=== PATIENT | female | born 1960 | race American Indian/Alaskan Native ===

== ENCOUNTER 2018-01-13 14:19 | Inpatient (IN) | payer MEDICAID ==
[~2018-01-13 14:19] MED LIST: Azithromycin 500 MG in Sodium Chloride 0.9% 250 ML IVPB SCH
[2018-01-13 14:55] VITALS: BMI 22.8
[2018-01-13] MEDS ORDERED: Sodium Chloride 0.9% 1,000 ML IV STA (15:26)
--- NOTE | 2018-01-13 15:55 | C.PDOC ---
History Of Present Illness 57 year old female, whose PMHx includes COPD/Asthma and HIV (states she is compliant with HAART and does not know last CD4 or viral load), presents to the ED for evaluation of subjective fever, generalized body aches and cough which began around 2 weeks ago. Patient denies chest pain, rash, recent travel or sick contacts. PMD: Dr. Fabien Arthur Time Seen by Provider: 01/13/18 14:58 Chief Complaint (Nursing): Fever History Per: Patient History/Exam Limitations: no limitations Onset/Duration Of Symptoms: Other (2 weeks ) Current Symptoms Are (Timing): Still Present Sick Contacts (Context): None Associated Symptoms: Fever, Cough Recent travel outside of the [place]: No Additional History Per: Patient Past Medical History Reviewed: Historical Data, Nursing Documentation, Vital Signs Vital Signs: Last Vital Signs Temp 99 F 01/13/18 14:55 Pulse 66 01/13/18 14:55 Resp 20 01/13/18 14:55 BP 152/87 H 01/13/18 14:55 Pulse Ox 99 01/13/18 14:55 - Medical History PMH: Asthma, COPD, Depression, HIV Surgical History: No Surg Hx Family History: States: Unknown Family Hx - Social History Hx Alcohol Use: Yes (socially) Hx Substance Use: (previous use of heroine) - Immunization History Hx Tetanus Toxoid Vaccination: No Hx Influenza Vaccination: No Hx Pneumococcal Vaccination: No Review Of Systems Constitutional: Positive for: Fever Cardiovascular: Negative for: Chest Pain Respiratory: Positive for: Cough Musculoskeletal: Positive for: Other (generalized body aches ) Skin: Negative for: Rash Physical Exam - Physical Exam Additional Physical Exam Comments: Constitutional: No acute distress. Head: Normocephalic. Atraumatic. Eyes: PERRL. ENT: Moist mucous membranes. Neck: Supple. Cardiovascular: Regular rate. Radial pulse 2+ bilaterally. Chest: No tenderness. Respiratory: Wheezing bilaterally. GI: Soft. Nontender. Back: No CVA tenderness. Musculoskeletal: No tenderness or swelling of extremities. Skin: No rash. Neurologic: Alert, no focal deficit. ED Course And Treatment - Laboratory Results Result Diagrams: 01/13/18 15:30 01/13/18 15:30 O2 Sat by Pulse Oximetry: 99 (on RA) Pulse Ox Interpretation: Normal - Other Rad CXR X-Ray: Interpreted by Me, Viewed By Me, Read By Radiologist Interpretation: Date of service: 01/13/2018. HISTORY: cough. COMPARISON: 03/12/2016. TECHNIQUE: Chest PA and lateral. FINDINGS: LUNGS: Bilateral hyperaeration consistent with background COPD/emphysema. Prior lateral right basal atelectasis re-expanded. No interval pathology appreciated. PLEURA: No significant pleural effusion identified. No pneumothorax apparent. CARDIOVASCULAR: No aortic atherosclerotic calcification present. Normal heart size. No pulmonary venous congestion suggested. OSSEOUS STRUCTURES: No significant abnormalities. VISUALIZED UPPER ABDOMEN: Normal. OTHER FINDINGS: None. IMPRESSION: No active disease. Bilateral hyperaeration consistent with background COPD/emphysema. Medical Decision Making Medical Decision Making: Impression: 57 year old female with subjective fever, body aches, and cough Plan: * bloodwork * urinalysis * CXR * EKG * Flu swab * Toradol IVP * IV Fluids * reassess and disposition Progress: Bloodwork, urinalysis, CXR, EKG, Flu swab ordered and reviewed. Toradol IVP and IV Fluids given. Patient continues to feel short of breath after treatment. Dr. Arthur accepts patient for observation to his service. Cipro initiated for UTI. Disposition Discussed With : Fabien Arthur Doctor Will See Patient In The: Hospital - Disposition Disposition: HOSPITALIZED Disposition Time: 17:15 Condition: FAIR Forms: [facility] (Nepali) - Clinical Impression Clinical Impression: Influenza-like illness, COPD exacerbation, UTI (urinary tract infection) - Scribe Statement The provider has reviewed the documentation as recorded by the Scribe (Conchis Puckett) Provider Attestation: All medical record entries made by the Scribe were at my direction and personally dictated by me. I have reviewed the chart and agree that the record accurately reflects my personal performance of the history, physical exam, medical decision making, and the department course for this patient. I have also personally directed, reviewed, and agree with the discharge instructions and disposition.
[2018-01-13 15:57] LABS: BASO % 0.5 % (0.0-2.0); EOS % 0.5 % (0.0-4.0); HEMOGLOBIN 12.8 g/dL (11.0-16.0); LYMPH # 2.5 K/uL (1.0-4.3); LYMPH % 31.5 % (20.0-40.0); MEAN CELL VOLUME 94.9 fL (81.0-99.0); MEAN CORPUSCULAR HEMOGLOBIN 32.6 pg (27.0-31.0); MEAN CORPUSCULAR HGB CONC 34.3 g/dL (33.0-37.0); MONO # 0.8 K/uL (0.0-0.8); MONO % 9.9 % (0.0-10.0); NEUT # 4.6 K/uL (1.8-7.0); NEUT % 57.6 % (50.0-75.0); NRBC % 0.1 % (0.0-2.0); RBC 3.92 Mil/uL (3.80-5.20); RED CELL DISTRIBUTION WIDTH 13.8 % (11.5-14.5)
[2018-01-13] MEDS ORDERED: Sodium Chloride 0.9% 1,000 ML ONE (15:58)
[2018-01-13 16:04] LABS: SQUAMOUS EPITHIAL 7 /hpf (0-5); URINE BILIRUBIN NEGATIVE (NEGATIVE); URINE BLOOD NEGATIVE (NEGATIVE); URINE CLARITY Hazy (Clear); URINE COLOR Yellow (YELLOW); URINE GLUCOSE (UA) NORMAL (Normal); URINE LEUKOCYTE ESTERASE 3+ Leu/uL (Negative); URINE PROTEIN NEGATIVE (NEGATIVE); URINE UROBILINOGEN NORMAL mg/dL (0.2-1.0)
[2018-01-13 16:05] LABS: HCG,QUALITATIVE URINE NEGATIVE (NEGATIVE)
[2018-01-13 16:17] LABS: ALB/GLOB RATIO 1.3 (1.0-2.1); AST/SGOT 42 U/L (14-36); BLOOD UREA NITROGEN 8 mg/dL (7-17); GFR NON-AFRICAN AMERICAN > 60; LIPASE 58 U/L (23-300)
[2018-01-13 16:19] LABS: ALT/SGPT 36 U/L (9-52)
--- NOTE | 2018-01-13 17:02 | RAD ---
Date of service: 01/13/2018 HISTORY: cough COMPARISON: 03/12/2016 TECHNIQUE: Chest PA and lateral FINDINGS: LUNGS: Bilateral hyperaeration consistent with background COPD/emphysema. Prior lateral right basal atelectasis re-expanded. No interval pathology appreciated. PLEURA: No significant pleural effusion identified. No pneumothorax apparent. CARDIOVASCULAR: No aortic atherosclerotic calcification present Normal heart size. No pulmonary venous congestion suggested OSSEOUS STRUCTURES: No significant abnormalities. VISUALIZED UPPER ABDOMEN: Normal. OTHER FINDINGS: None. IMPRESSION: No active disease. Bilateral hyperaeration consistent with background COPD/emphysema.
[2018-01-13] MEDS ORDERED: MethylPREDNISolone 40 mg Vial IVP STA (17:17)
[2018-01-13] MEDS ORDERED: Albuterol-Ipratrop 3 mg / 0.5 (3 ml) UD IH STA (17:17)
[2018-01-13] MEDS ORDERED: Ciprofloxacin 400mg/200ml D5W 400 MG/200 ML BAG IVPB STA (17:18)
[2018-01-13] MEDS ORDERED: Albuterol-Ipratrop 3 mg / 0.5 (3 ml) UD ONE (17:54)
[2018-01-13] MEDS ORDERED: Ciprofloxacin 400mg/200ml D5W 400 MG/200 ML BAG IVPB ONE (17:54)
[2018-01-13] MEDS: Albuterol-Ipratrop 3 mg / 0.5 (3 ml) UD INH SCH (20:00)
[2018-01-13] MEDS: Azithromycin 500 MG in Sodium Chloride 0.9% 250 ML IVPB SCH (20:19)
[2018-01-13] MEDS: Dextrose 5%/0.45% NS 1,000 ML IV SCH (20:19)
[2018-01-13] MEDS: guaiFENesin 200 mg/10 ml Syrup UD PO PRN (21:40)
[2018-01-13] MEDS: Prazosin HCL 2 mg PO SCH (21:41)
--- NOTE | 2018-01-13 22:57 | CP.PCM.HP ---
Present on Admission - Present on Admission Any Indicators Present on Admission: No Past Patient History - Infectious Disease Hx of Infectious Diseases: None - Past Medical History & Family History Past Medical History?: Yes - Past Social History Smoking Status: Light Smoker < 10 Cigarettes Daily - CARDIAC Hx Cardiac Disorders: No - PULMONARY Hx Asthma: Yes Hx Chronic Obstructive Pulmonary Disease (COPD): Yes - NEUROLOGICAL Other/Comment: "Hole in the head" - HEENT Other/Comment: Left eye blind - HEMATOLOGICAL/ONCOLOGICAL Hx Human Immunodeficiency Virus (HIV): Yes - MUSCULOSKELETAL/RHEUMATOLOGICAL Hx Falls: No - PSYCHIATRIC Hx Depression: Yes Hx Substance Use: (previous use of heroine) - SURGICAL HISTORY Hx Surgeries: No - ANESTHESIA Hx Anesthesia: No Meds Home Medications: Home Medication List Medication Instructions Recorded Confirmed Type Albuterol HFA [Ventolin HFA 90 0.09 mg IH QID PRN #1 puff 01/19/18 Rx mcg/actuation (8 g)] Allergies/Adverse Reactions: Allergies Allergy/AdvReac Type Severity Reaction Status Date / Time No Known Allergies Allergy Verified 02/03/18 19:25 Results - Vital Signs Recent Vital Signs: Last Vital Signs Temp 98 F 01/13/18 19:00 Pulse 66 01/13/18 19:11 Resp 18 01/13/18 19:00 BP 152/80 H 01/13/18 19:00 Pulse Ox 98 01/13/18 19:21 - Labs Result Diagrams: 01/15/18 06:49 01/19/18 06:20 Labs: Laboratory Results - last 24 hr 01/13/18 01/13/18 01/13/18 15:30 15:30 15:30 WBC 8.0 RBC 3.92 Hgb 12.8 Hct 37.2 MCV 94.9 D MCH 32.6 H MCHC 34.3 RDW 13.8 Plt Count 185 MPV 9.0 Neut % (Auto) 57.6 Lymph % (Auto) 31.5 [place] % (Auto) 9.9 Eos % (Auto) 0.5 Baso % (Auto) 0.5 Neut # (Auto) 4.6 Lymph # (Auto) 2.5 [place] # (Auto) 0.8 Eos # (Auto) 0.0 Baso # (Auto) 0.0 Sodium Potassium Chloride Carbon Dioxide Anion Gap BUN Creatinine Est GFR ( Amer) Est GFR (Non-Af Amer) Random Glucose Calcium Total Bilirubin AST ALT Alkaline Phosphatase Total Creatine Kinase Total Protein Albumin Globulin Albumin/Globulin Ratio Lipase Urine Color Yellow Urine Clarity Hazy Urine pH 7.0 Ur Specific [place] 1.012 Urine Protein Negative Urine Glucose (UA) Normal Urine Ketones Negative Urine Blood Negative Urine Nitrate Negative Urine Bilirubin Negative Urine Urobilinogen Normal Ur Leukocyte Esterase 3+ H Urine WBC (Auto) 11 H Urine RBC (Auto) 1 Ur Squamous Epith Cells 7 H Urine HCG, Qual Negative Influenza Typ A,B (EIA) Negative for flu a/b 01/13/18 15:30 WBC RBC Hgb Hct MCV MCH MCHC RDW Plt Count MPV Neut % (Auto) Lymph % (Auto) [place] % (Auto) Eos % (Auto) Baso % (Auto) Neut # (Auto) Lymph # (Auto) [place] # (Auto) Eos # (Auto) Baso # (Auto) Sodium 142 Potassium 4.2 Chloride 104 Carbon Dioxide 31 H Anion Gap 12 BUN 8 Creatinine 0.9 Est GFR ( Amer) > 60 Est GFR (Non-Af Amer) > 60 Random Glucose 79 Calcium 9.0 Total Bilirubin 0.4 AST 42 H ALT 36 Alkaline Phosphatase 90 Total Creatine Kinase 378 H Total Protein 7.2 Albumin 4.0 Globulin 3.1 Albumin/Globulin Ratio 1.3 Lipase 58 Urine Color Urine Clarity Urine pH Ur Specific [place] Urine Protein Urine Glucose (UA) Urine Ketones Urine Blood Urine Nitrate Urine Bilirubin Urine Urobilinogen Ur Leukocyte Esterase Urine WBC (Auto) Urine RBC (Auto) Ur Squamous Epith Cells Urine HCG, Qual Influenza Typ A,B (EIA)
[2018-01-14] MEDS: Albuterol-Ipratrop 3 mg / 0.5 (3 ml) UD INH SCH ×4 (01:30→20:17)
--- NOTE | 2018-01-14 07:00 | HP ---
CHIEF COMPLAINT: The patient has fever, cough x2 days. HISTORY OF PRESENT ILLNESS: This is a 57-year-old female well known to me with history of acquired immunodeficiency syndrome (AIDS), on HAART therapy and she claimed to be compliant to HAART therapy. The patient's CD4 and viral load is unknown. She is on methadone 70 mg daily recently started. In her usual state of health, she is ambulatory and independent in activities of daily living. For the last few days, she has been having cough, congestion, wheezing, chills, rigors, body aches, tiredness, anorexia, malaise, and fatigue. She denies any polyuria, polydipsia, or polyphagia. She denies any history of hematuria, pyuria. She denies any sneezing, itchy eyes, itchy nose. There is no history of trauma, fall, loss of consciousness. She denies any history of seizure-like activity. PAST MEDICAL HISTORY: AIDS, on HAART therapy. SOCIAL HISTORY: She smokes, she drinks and she uses drugs. She is on methadone. CURRENT MEDICATIONS: At home, she is on Seroquel, methadone, Symbicort, Ambien, and Minipress. PHYSICAL EXAMINATION: GENERAL: A middle aged female, in mild distress with weakness. VITAL SIGNS: Blood pressure 152/80, pulse 58, respiratory rate 18, temperature 98, still the patient has extensive changes with postinflammatory hyperpigmentation. HEENT: Atraumatic, normocephalic. Negative pallor. Negative jaundice. Extraocular movements are intact. NECK: Supple. No JVD. No lymph node. No thyromegaly. CHEST: Chest wall bilateral symmetrical expansion. BREASTS: No masses. No nipple discharge. LUNGS: Decreased air entry. Positive rhonchi. CARDIOVASCULAR SYSTEM: PMI in the fifth intercostal space. S1, S2 regular. ABDOMEN: Soft and nontender. Bowel sounds are positive. RECTAL: Normal. GENITAL: Normal. EXTREMITIES: No clubbing, cyanosis, or edema. CENTRAL NERVOUS SYSTEM: Normal. ASSESSMENT: 1. Acute tracheobronchitis. 2. Exacerbation of chronic obstructive pulmonary disease. 3. Acquired immunodeficiency syndrome. 4. Hypertension. PLAN: Antibiotics, monitor the patient. Medication, nebulizer. Fabien Arthur MD [facility] # [id number]
[2018-01-14] MEDS: guaiFENesin 200 mg/10 ml Syrup UD PO PRN (07:56)
[2018-01-14] MEDS: Dextrose 5%/0.45% NS 1,000 ML IV SCH ×3 (07:57→19:18)
[2018-01-14] MEDS: Methadone 40 mg Tab PO SCH (10:11)
[2018-01-14] MEDS: Enoxaparin 40 mg Syringe SC SCH (10:11)
[2018-01-14] MEDS: Azithromycin 500 MG in Sodium Chloride 0.9% 250 ML IVPB SCH (19:13)
--- NOTE | 2018-01-14 19:39 | CARD ---
APPROVED REPORT Date of service: 01/13/2018 EKG Measurement Heart [id number] <Conclusion> Sinus bradycardia Nonspecific T wave abnormality Prolonged QT Abnormal ECG
[2018-01-14] MEDS: Prazosin HCL 2 mg PO SCH (21:33)
--- NOTE | 2018-01-14 21:46 | CP.PCM.PN ---
Subjective - Date & Time of Evaluation Date of Evaluation: 01/14/18 Time of Evaluation: 09:15 Objective - Vital Signs/Intake and Output Vital Signs (last 24 hours): Temp Pulse Resp BP Pulse Ox 98.0 F 65 20 151/80 H 100 01/14/18 15:00 01/14/18 19:13 01/14/18 15:00 01/14/18 19:13 01/14/18 19:46 - Medications Medications: Current Medications Albuterol/Ipratropium (Duoneb 3 Mg/0.5 Mg (3 Ml) Ud) 3 ml INH RQ6 [facility] Last Admin: 01/14/18 20:17 Dose: 3 ml Enoxaparin Sodium (Lovenox) 40 mg SC DAILY [facility] Last Admin: 01/14/18 10:11 Dose: 40 mg Guaifenesin (Robitussin) 200 mg PO Q4H PRN PRN Reason: Cough and congestion Last Admin: 01/14/18 07:56 Dose: 200 mg Dextrose/Sodium Chloride (Dextrose 5%/0.45% Ns 1000 Ml) 1,000 mls @ 80 mls/hr IV .[id number] [facility] Last Admin: 01/14/18 19:18 Dose: Not Given Azithromycin 500 mg/ Sodium (Chloride) 250 mls @ 250 mls/hr IVPB Q24H [facility]; Protocol Last Admin: 01/14/18 19:13 Dose: 250 mls/hr Methadone HCl (Methadose) 40 mg PO DAILY [facility] Last Admin: 01/14/18 10:11 Dose: 40 mg Methadone HCl (Methadone) 30 mg PO DAILY [facility] Last Admin: 01/14/18 10:11 Dose: 30 mg Prazosin HCl (Minipress) 2 mg PO HS [facility] Last Admin: 01/14/18 21:33 Dose: 2 mg Prednisone (Prednisone Tab) 20 mg PO DAILY [facility] Stop: 01/16/18 12:00 Last Admin: 01/14/18 10:11 Dose: 20 mg Quetiapine Fumarate (Seroquel) 100 mg PO HS [facility] Last Admin: 01/14/18 21:33 Dose: 100 mg Zolpidem Tartrate (Ambien) 5 mg PO HS PRN PRN Reason: Insomnia Last Admin: 01/14/18 21:40 Dose: 5 mg - Labs Labs: 01/13/18 15:30 01/13/18 15:30
[2018-01-15] MEDS: Albuterol-Ipratrop 3 mg / 0.5 (3 ml) UD INH SCH ×3 (01:50→13:22)
[2018-01-15] MEDS: Dextrose 5%/0.45% NS 1,000 ML IV SCH ×2 (06:32→09:00)
[2018-01-15 07:20] LABS: BASO % 0.3 % (0.0-2.0); EOS % 0.1 % (0.0-4.0); LYMPH # 2.5 K/uL (1.0-4.3); LYMPH % 25.6 % (20.0-40.0); MEAN CELL VOLUME 95.3 fL (81.0-99.0); MEAN CORPUSCULAR HGB CONC 34.7 g/dL (33.0-37.0); MEAN PLATELET VOLUME 9.4 fL (7.2-11.7); MONO % 10.1 % (0.0-10.0); NEUT # 6.3 K/uL (1.8-7.0); NEUT % 63.9 % (50.0-75.0); RBC 3.63 Mil/uL (3.80-5.20); RED CELL DISTRIBUTION WIDTH 13.9 % (11.5-14.5); WHITE BLOOD COUNT 9.9 K/uL (4.8-10.8)
[2018-01-15 07:27] LABS: ALB/GLOB RATIO 1.1 (1.0-2.1); ALBUMIN 3.2 g/dL (3.5-5.0); ALT/SGPT 25 U/L (9-52); AST/SGOT 31 U/L (14-36); BLOOD UREA NITROGEN 14 mg/dL (7-17); CALCIUM 8.6 mg/dl (8.6-10.4); GFR NON-AFRICAN AMERICAN > 60
--- NOTE | 2018-01-15 08:46 | PN ---
DATE: 01/14/2018 SUBJECTIVE: The patient, Rosa Quevedo, is feeling anxious. She is afebrile. She has decreased nausea, vomiting. She is on methadone. No fever. No chills. PHYSICAL EXAMINATION VITAL SIGNS: Blood pressure 151/80, pulse 65, respiratory rate 20. LUNGS: Positive rhonchi. Decreased air entry. CARDIOVASCULAR SYSTEM: S1, S2 regular. ABDOMEN: Soft, nontender. Bowel sounds are positive. ASSESSMENT: 1. Chronic obstructive pulmonary disease. 2. Tracheobronchitis. 3. Acquired immunodeficiency syndrome. 4. Hypertension. PLAN: Continue current medication. Monitor the patient. Fabien Arthur MD
[2018-01-15] MEDS: Enoxaparin 40 mg Syringe SC SCH (09:26)
[2018-01-15] MEDS: Methadone 40 mg Tab PO SCH (09:27)
[2018-01-15] MEDS: guaiFENesin 200 mg/10 ml Syrup UD PO PRN (12:59)
[2018-01-15] MEDS: Prazosin HCL 2 mg PO SCH (21:30)
--- NOTE | 2018-01-15 21:57 | CP.PCM.PN ---
Subjective - Date & Time of Evaluation Date of Evaluation: 01/15/18 Time of Evaluation: 09:15 - Subjective Subjective: dictated Objective - Vital Signs/Intake and Output Vital Signs (last 24 hours): Temp Pulse Resp BP Pulse Ox 98.2 F 60 20 155/86 H 99 01/15/18 15:00 01/15/18 16:00 01/15/18 15:00 01/15/18 15:00 01/15/18 15:00 - Medications Medications: Current Medications Acetaminophen (Tylenol 325mg Tab) 650 mg PO Q6 PRN PRN Reason: Pain, moderate (4-7) Last Admin: 01/15/18 19:29 Dose: 650 mg Albuterol/Ipratropium (Duoneb 3 Mg/0.5 Mg (3 Ml) Ud) 3 ml INH RQ6 [facility] Last Admin: 01/15/18 13:22 Dose: 3 ml Azithromycin (Zithromax) 500 mg PO 1999 [facility] Last Admin: 01/15/18 19:29 Dose: 500 mg Enoxaparin Sodium (Lovenox) 40 mg SC DAILY [facility] Last Admin: 01/15/18 09:26 Dose: 40 mg Guaifenesin (Robitussin) 200 mg PO Q4H PRN PRN Reason: Cough and congestion Last Admin: 01/15/18 12:59 Dose: 200 mg Dextrose/Sodium Chloride (Dextrose 5%/0.45% Ns 1000 Ml) 1,000 mls @ 80 mls/hr IV .[id number] [facility] Last Admin: 01/15/18 09:00 Dose: Not Given Methadone HCl (Methadose) 40 mg PO DAILY [facility] Last Admin: 01/15/18 09:27 Dose: 40 mg Methadone HCl (Methadone) 30 mg PO DAILY [facility] Last Admin: 01/15/18 09:27 Dose: 30 mg Prazosin HCl (Minipress) 2 mg PO HS [facility] Last Admin: 01/15/18 21:30 Dose: 2 mg Prednisone (Prednisone Tab) 20 mg PO DAILY [facility] Stop: 01/16/18 12:00 Last Admin: 01/15/18 09:26 Dose: 20 mg Quetiapine Fumarate (Seroquel) 100 mg PO HS [facility] Last Admin: 01/15/18 21:30 Dose: 100 mg Zolpidem Tartrate (Ambien) 5 mg PO HS PRN PRN Reason: Insomnia Last Admin: 01/15/18 21:30 Dose: 5 mg - Labs Labs: 01/15/18 06:49 01/15/18 06:49
[2018-01-16] MEDS: Albuterol-Ipratrop 3 mg / 0.5 (3 ml) UD INH SCH ×3 (02:25→07:55)
--- NOTE | 2018-01-16 08:37 | PN ---
DATE: 01/15/2018 SUBJECTIVE: The patient is feeling weak, dizzy, coughing, wheezing, with thick sputum production. No chest pain. She has chest congestion upon coughing. No abdominal pain, nausea, vomiting. PHYSICAL EXAMINATION: VITAL SIGNS: Blood pressure 165/86, pulse 60, respiratory rate 20, temperature 98.2. LUNGS: Diffuse air entry, positive rhonchi. CARDIOVASCULAR SYSTEM: S1, S2, regular. ABDOMEN: Soft. ASSESSMENT: 1. Exacerbation of bronchial asthma. 2. Acquired immunodeficiency syndrome. 3. Opioid dependence, on methadone. 4. Hypertension. PLAN: Continue current medication. Monitor the patient. Fabien Arthur MD
[2018-01-16] MEDS: Methadone 40 mg Tab PO SCH (09:18)
[2018-01-16] MEDS: Enoxaparin 40 mg Syringe SC SCH (09:18)
[2018-01-16] MEDS: Dextrose 5%/0.45% NS 1,000 ML IV SCH (12:44)
[2018-01-16] MEDS: Prazosin HCL 2 mg PO SCH (21:31)
--- NOTE | 2018-01-16 23:24 | CP.PCM.PN ---
Subjective - Subjective Subjective: dicated Objective - Vital Signs/Intake and Output Vital Signs (last 24 hours): Temp Pulse Resp BP Pulse Ox 97.8 F 60 20 163/86 H 98 01/16/18 18:36 01/16/18 16:09 01/16/18 16:09 01/16/18 16:09 01/16/18 16:09 Intake and Output: 01/16/18 01/17/18 18:59 06:59 Intake Total 520 500 Balance 520 500 - Medications Medications: Current Medications Acetaminophen (Tylenol 325mg Tab) 650 mg PO Q6 PRN PRN Reason: Pain, moderate (4-7) Last Admin: 01/16/18 17:36 Dose: 650 mg Albuterol/Ipratropium (Duoneb 3 Mg/0.5 Mg (3 Ml) Ud) 3 ml INH RQ6 [facility] Last Admin: 01/16/18 07:55 Dose: 3 ml Azithromycin (Zithromax) 500 mg PO 2000 [facility] Last Admin: 01/16/18 20:23 Dose: 500 mg Clonidine HCl (Catapres) 0.1 mg PO BID [facility] Last Admin: 01/16/18 17:34 Dose: 0.1 mg Enoxaparin Sodium (Lovenox) 40 mg SC DAILY [facility] Last Admin: 01/16/18 09:18 Dose: 40 mg Guaifenesin (Robitussin) 200 mg PO Q4H PRN PRN Reason: Cough and congestion Last Admin: 01/15/18 12:59 Dose: 200 mg Methadone HCl (Methadose) 40 mg PO DAILY [facility] Last Admin: 01/16/18 09:18 Dose: 40 mg Methadone HCl (Methadone) 30 mg PO DAILY [facility] Last Admin: 01/16/18 09:18 Dose: 30 mg Prazosin HCl (Minipress) 2 mg PO HS [facility] Last Admin: 01/16/18 21:31 Dose: 2 mg Quetiapine Fumarate (Seroquel) 100 mg PO HS [facility] Last Admin: 01/16/18 21:31 Dose: 100 mg Zolpidem Tartrate (Ambien) 5 mg PO HS PRN PRN Reason: Insomnia Last Admin: 01/16/18 21:31 Dose: 5 mg - Labs Labs: 01/15/18 06:49 01/15/18 06:49
[2018-01-17] MEDS: Albuterol-Ipratrop 3 mg / 0.5 (3 ml) UD INH SCH ×4 (01:27→19:52)
[2018-01-17] MEDS: Methadone 40 mg Tab PO SCH (10:08)
[2018-01-17] MEDS: Enoxaparin 40 mg Syringe SC SCH (10:09)
[2018-01-17] MEDS: guaiFENesin 200 mg/10 ml Syrup UD PO SCH ×2 (14:05→20:41)
[2018-01-17] MEDS: Prazosin HCL 2 mg PO SCH (21:42)
--- NOTE | 2018-01-17 21:45 | CP.PCM.PN ---
Subjective - Subjective Subjective: dictated Objective - Vital Signs/Intake and Output Vital Signs (last 24 hours): Temp Pulse Resp BP Pulse Ox 98 F 88 20 156/86 H 97 01/17/18 16:00 01/17/18 16:00 01/17/18 16:00 01/17/18 16:00 01/17/18 16:00 Intake and Output: 01/17/18 01/18/18 18:59 06:59 Intake Total 1140 Balance 1140 - Medications Medications: Current Medications Acetaminophen (Tylenol 325mg Tab) 650 mg PO Q6 PRN PRN Reason: Pain, moderate (4-7) Last Admin: 01/16/18 17:36 Dose: 650 mg Albuterol/Ipratropium (Duoneb 3 Mg/0.5 Mg (3 Ml) Ud) 3 ml INH RQ6 [facility] Last Admin: 01/17/18 19:52 Dose: 3 ml Azithromycin (Zithromax) 500 mg PO 2000 [facility] Last Admin: 01/17/18 20:41 Dose: 500 mg Clonidine HCl (Catapres) 0.1 mg PO BID [facility] Last Admin: 01/17/18 18:15 Dose: 0.1 mg Enoxaparin Sodium (Lovenox) 40 mg SC DAILY [facility] Last Admin: 01/17/18 10:09 Dose: 40 mg Guaifenesin (Robitussin) 200 mg PO Q6H [facility] Stop: 01/19/18 14:02 Last Admin: 01/17/18 20:41 Dose: 200 mg Methadone HCl (Methadose) 40 mg PO DAILY [facility] Last Admin: 01/17/18 10:08 Dose: 40 mg Methadone HCl (Methadone) 30 mg PO DAILY [facility] Last Admin: 01/17/18 10:10 Dose: 30 mg Methylprednisolone (Solu-Medrol) 60 mg IV Q12 [facility] Prazosin HCl (Minipress) 2 mg PO HS [facility] Last Admin: 01/17/18 21:42 Dose: 2 mg Quetiapine Fumarate (Seroquel) 100 mg PO HS [facility] Last Admin: 01/17/18 21:42 Dose: 100 mg Zolpidem Tartrate (Ambien) 5 mg PO HS PRN PRN Reason: Insomnia Last Admin: 01/17/18 21:41 Dose: 5 mg - Labs Labs: 01/15/18 06:49 01/15/18 06:49
[2018-01-18] MEDS: guaiFENesin 200 mg/10 ml Syrup UD PO SCH ×4 (01:00→19:30)
[2018-01-18] MEDS: Albuterol-Ipratrop 3 mg / 0.5 (3 ml) UD INH SCH ×4 (01:00→19:50)
--- NOTE | 2018-01-18 08:21 | PN ---
DATE: 01/17/2018 SUBJECTIVE: The patient, Sae, is still coughing, wheezing; and she is dyspneic. She is on multiple medications. She denies any nausea, vomiting, or diarrhea. PHYSICAL EXAMINATION: VITAL SIGNS: Blood pressure 156/86, pulse 88, respiratory rate 20, temperature 98. LUNGS: Bilateral expiratory and inspiratory rhonchi. CARDIOVASCULAR SYSTEM: S1, S2, regular. ABDOMEN: Soft. ASSESSMENT: 1. Acute tracheal bronchitis. 2. Exacerbation of bronchial asthma. 3. Polydrug abuse, on methadone. 4. Hypertension. PLAN: Add Solu-Medrol 60 IV every 12 hours. Continue current medication. Monitor breathing, PEEP flow, pre and post treatment. Fabien Arthur MD
--- NOTE | 2018-01-18 08:21 | PN ---
DATE: 01/16/2018 SUBJECTIVE: The patient has less cough, less short of breath, less wheezing, no fever. Blood pressure fluctuating. The patient is on methadone. No abdominal pain. No nausea, vomiting. PHYSICAL EXAMINATION: VITAL SIGNS: Blood pressure 163/86, pulse 60, respiratory rate 20, temperature 98.4. LUNGS: Positive rales, rhonchi. CVS: S1, S2 regular. ABDOMEN: Soft. ASSESSMENT: 1. Tracheobronchitis. 2. Exacerbation of chronic obstructive pulmonary disease. 3. Opiate dependence. PLAN: Continue antibiotics and nebulizer treatment. Monitor the patient. Fabien Arthur MD
[2018-01-18] MEDS: Enoxaparin 40 mg Syringe SC SCH (09:30)
[2018-01-18] MEDS: Methadone 40 mg Tab PO SCH (09:31)
[2018-01-18] MEDS: Prazosin HCL 2 mg PO SCH (21:30)
--- NOTE | 2018-01-18 22:22 | CP.PCM.PN ---
Subjective - Subjective Subjective: dictated Objective - Vital Signs/Intake and Output Vital Signs (last 24 hours): Temp Pulse Resp BP Pulse Ox 98.2 F 75 21 141/89 96 01/18/18 20:52 01/18/18 16:00 01/18/18 16:00 01/18/18 16:00 01/18/18 16:00 Intake and Output: 01/18/18 01/19/18 18:59 06:59 Intake Total 500 Balance 500 - Medications Medications: Current Medications Acetaminophen (Tylenol 325mg Tab) 650 mg PO Q6 PRN PRN Reason: Pain, moderate (4-7) Last Admin: 01/18/18 20:52 Dose: 650 mg Azithromycin (Zithromax) 500 mg PO 2000 [facility] Last Admin: 01/18/18 19:31 Dose: 500 mg Clonidine HCl (Catapres) 0.1 mg PO BID [facility] Last Admin: 01/18/18 17:59 Dose: 0.1 mg Enoxaparin Sodium (Lovenox) 40 mg SC DAILY [facility] Last Admin: 01/18/18 09:30 Dose: 40 mg Guaifenesin (Robitussin) 200 mg PO Q6H [facility] Stop: 01/19/18 14:02 Last Admin: 01/18/18 19:30 Dose: 200 mg Methadone HCl (Methadose) 40 mg PO DAILY [facility] Last Admin: 01/18/18 09:31 Dose: 40 mg Methadone HCl (Methadone) 30 mg PO DAILY [facility] Last Admin: 01/18/18 09:31 Dose: 30 mg Methylprednisolone (Solu-Medrol) 60 mg IV Q12 [facility] Last Admin: 01/18/18 21:31 Dose: 60 mg Prazosin HCl (Minipress) 2 mg PO HS [facility] Last Admin: 01/18/18 21:30 Dose: 2 mg Quetiapine Fumarate (Seroquel) 100 mg PO HS [facility] Last Admin: 01/18/18 21:30 Dose: 100 mg Zolpidem Tartrate (Ambien) 5 mg PO HS PRN PRN Reason: Insomnia Last Admin: 01/18/18 21:31 Dose: 5 mg - Labs Labs: 01/15/18 06:49 01/15/18 06:49
[2018-01-19 00:41] VITALS: RESP 20
[2018-01-19] MEDS: guaiFENesin 200 mg/10 ml Syrup UD PO SCH ×3 (01:44→13:45)
--- NOTE | 2018-01-19 03:02 | PN ---
DATE: 01/18/2018 SUBJECTIVE: The patient, Rosa, is feeling better. She is less cough, less wheezing. She feels better. PHYSICAL EXAMINATION: VITAL SIGNS: Blood pressure 141/89, pulse 75, respiratory rate 21, and temperature 98.2. LUNGS: Decreased air entry. Positive scattered rhonchi. Rhonchi have decreased. CARDIOVASCULAR SYSTEM: S1 and S2, regular. ABDOMEN: Soft. ASSESSMENT: 1. Bronchial asthma. 2. Tracheobronchitis. 3. Opioid dependence. PLAN: Monitor the patient. Fabien Arthur MD
[2018-01-19 06:44] LABS: BLOOD UREA NITROGEN 18 mg/dL (7-17); CALCIUM 9.8 mg/dl (8.6-10.4); GFR NON-AFRICAN AMERICAN > 60
[2018-01-19 07:40] VITALS: BP 145/85; PULSE 64; TEMP 97.4; O2SAT 95
[2018-01-19] MEDS: Enoxaparin 40 mg Syringe SC SCH (09:30)
[2018-01-19] MEDS: Methadone 40 mg Tab PO SCH (09:37)
[2018-01-19] MEDS ORDERED: MethylPREDNISolone 40 mg Vial IV SCH (09:53)
[2018-01-19] MEDS ORDERED: Pneumococcal 23-Valent Vaccine IM ONE (12:15)
[2018-01-19] MEDS ORDERED: Influenza Vaccine 60 MCG/0.5 ML SYR (3 yr & up) IM ONE (12:15)
--- NOTE | 2018-01-19 17:02 | CP.PCM.PN ---
Subjective - Date & Time of Evaluation Date of Evaluation: 01/19/18 Time of Evaluation: 11:00 - Subjective Subjective: alert and orientedx3, no sob or chest pains. Objective - Vital Signs/Intake and Output Vital Signs (last 24 hours): Temp Pulse Resp BP Pulse Ox 97.4 F L 64 20 145/85 95 01/19/18 07:37 01/19/18 07:37 01/19/18 07:37 01/19/18 07:37 01/19/18 07:37 Intake and Output: 01/19/18 01/19/18 06:59 18:59 Intake Total 650 500 Balance 650 500 - Labs Labs: 01/15/18 06:49 01/19/18 06:20 Assessment and Plan - Assessment and Plan (Free Text) Assessment: Patient is seen and examined. Alert and orientedx3, denies sob or chest pains.Ambulating well. Discussed with DR Arthur, plan to discharge hometoday on tapering prednisone. Advised to follow up with PMD in 1 week. .
--- NOTE | 2018-01-19 22:06 | CP.PCM.DIS ---
Provider - Provider Date of Admission: 01/15/18 15:00 Attending physician: Fabien Arthur MD Time Spent in preparation of Discharge (in minutes): 25 Hospital Course - Lab Results Lab Results: Micro Results 01/13/18 16:09 Blood-Venous Blood Culture - Final NO GROWTH AFTER 5 DAYS 01/13/18 16:09 Blood-Venous Gram Stain - Final TEST NOT PERFORMED 01/13/18 15:30 Blood-Venous Blood Culture - Final NO GROWTH AFTER 5 DAYS 01/13/18 15:30 Blood-Venous Gram Stain - Final TEST NOT PERFORMED 01/13/18 15:30 Urine Urine Culture - Final No Growth (<1,000 CFU/ML) Most Recent Lab Values WBC 9.9 K/uL (4.8-10.8) 01/15/18 06:49 RBC 3.63 Mil/uL (3.80-5.20) L 01/15/18 06:49 Hgb 12.0 g/dL (11.0-16.0) 01/15/18 06:49 Hct 34.6 % (34.0-47.0) 01/15/18 06:49 MCV 95.3 fL (81.0-99.0) 01/15/18 06:49 MCH 33.0 pg (27.0-31.0) H 01/15/18 06:49 MCHC 34.7 g/dL (33.0-37.0) 10 06:49 RDW 13.9 % (11.5-14.5) 01/15/18 06:49 Plt Count 156 K/uL (130-400) 01/15/18 06:49 MPV 9.4 fL (7.2-11.7) 01/15/18 06:49 Neut % (Auto) 63.9 % (50.0-75.0) 01/15/18 06:49 Lymph % (Auto) 25.6 % (20.0-40.0) 01/15/18 06:49 [place] % (Auto) 10.1 % (0.0-10.0) H 01/15/18 06:49 Eos % (Auto) 0.1 % (0.0-4.0) 01/15/18 06:49 Baso % (Auto) 0.3 % (0.0-2.0) 01/15/18 06:49 Neut # (Auto) 6.3 K/uL (1.8-7.0) 01/15/18 06:49 Lymph # (Auto) 2.5 K/uL (1.0-4.3) 01/15/18 06:49 [place] # (Auto) 1.0 K/uL (0.0-0.8) H 01/15/18 06:49 Eos # (Auto) 0.0 K/uL (0.0-0.7) 01/15/18 06:49 Baso # (Auto) 0.0 K/uL (0.0-0.2) 01/15/18 06:49 Sodium 141 mmol/L (132-148) 01/19/18 06:20 Potassium 4.7 mmol/L (3.6-5.2) 01/19/18 06:20 Chloride 104 mmol/L (98-107) 01/19/18 06:20 Carbon Dioxide 26 mmol/L (22-30) 01/19/18 06:20 Anion Gap 15 (10-20) 01/19/18 06:20 BUN 18 mg/dL (7-17) H 01/19/18 06:20 Creatinine 0.7 mg/dL (0.7-1.2) 01/19/18 06:20 Est GFR ( Amer) > 60 01/19/18 06:20 Est GFR (Non-Af Amer) > 60 01/19/18 06:20 Random Glucose 141 mg/dL (65-105) H 01/19/18 06:20 Calcium 9.8 mg/dl (8.6-10.4) 01/19/18 06:20 Total Bilirubin 0.2 mg/dL (0.2-1.3) 01/15/18 06:49 AST 31 U/L (14-36) 01/15/18 06:49 ALT 25 U/L (9-52) 01/15/18 06:49 Alkaline Phosphatase 96 U/L (38-126) 01/15/18 06:49 Total Creatine Kinase 378 U/L (30-135) H 01/13/18 15:30 Total Protein 6.1 g/dL (6.3-8.3) L 01/15/18 06:49 Albumin 3.2 g/dL (3.5-5.0) L 01/15/18 06:49 Globulin 2.9 gm/dL (2.2-3.9) 01/15/18 06:49 Albumin/Globulin Ratio 1.1 (1.0-2.1) 01/15/18 06:49 Lipase 58 U/L (23-300) 01/13/18 15:30 Urine Color Yellow (YELLOW) 01/13/18 15:30 Urine Clarity Hazy (Clear) 01/13/18 15:30 Urine pH 7.0 (5.0-8.0) 01/13/18 15:30 Ur Specific [place] 1.012 (1.003-1.030) 01/13/18 15:30 Urine Protein Negative mg/dL (NEGATIVE) 01/13/18 15:30 Urine Glucose (UA) Normal mg/dL (Normal) 01/13/18 15:30 Urine Ketones Negative mg/dL (NEGATIVE) 01/13/18 15:30 Urine Blood Negative (NEGATIVE) 01/13/18 15:30 Urine Nitrate Negative (NEGATIVE) 01/13/18 15:30 Urine Bilirubin Negative (NEGATIVE) 01/13/18 15:30 Urine Urobilinogen Normal mg/dL (0.2-1.0) 01/13/18 15:30 Ur Leukocyte Esterase 3+ Gio/uL (Negative) H 01/13/18 15:30 Urine WBC (Auto) 11 /hpf (0-5) H 01/13/18 15:30 Urine RBC (Auto) 1 /hpf (0-3) 01/13/18 15:30 Ur Squamous Epith Cells 7 /hpf (0-5) H 01/13/18 15:30 Urine HCG, Qual Negative (NEGATIVE) 01/13/18 15:30 Influenza Typ A,B (EIA) Negative for flu a/b (NEGATIVE) 01/13/18 15:30 Discharge Plan - Discharge Medications Prescriptions: Albuterol HFA [Ventolin HFA 90 mcg/actuation (8 g)] 0.09 mg IH QID PRN #1 puff PRN Reason: Wheezing - Follow Up Plan Condition: FAIR Disposition: HOME/ ROUTINE Instructions: Exacerbation of COPD (DC), Albuterol, Prednisone, Urinary Tract Infection in Women (DC) Referrals: Fabien Arthur MD [Staff Provider] -
--- NOTE | 2018-01-20 21:34 | DS ---
DISCHARGE DIAGNOSES: 1. Tracheobronchitis. 2. Exacerbation of bronchial asthma. 3. Acquired immunodeficiency syndrome. 4. Opiate dependence, on methadone program. HISTORY OF PRESENT ILLNESS: This is a 57-year-old female with a history of AIDS, on HAART therapy; and bronchial asthma. She came in because of cough, congestion, shortness of breath, wheezing, chills, and rigors. The patient was admitted to the , started on antibiotics, nebulizers, blood pressure medications. The patient's condition started improving, but condition was improving slowly. The patient was given Solu-Medrol, oxygen, and nebulizers. The patient did well and the patient is for discharge. CONDITION UPON DISCHARGE: Stable. PHYSICAL EXAMINATION: VITAL SIGNS: Blood pressure 145/85, pulse 64, respiratory rate 20, temperature 97.4. LUNGS: Positive rhonchi. CARDIOVASCULAR SYSTEM: S1 and S2 are regular. ABDOMEN: Soft. Fabien Arthur MD
== END 2018-01-19 13:45 | disposition home or self-care (01) | DRG 541 ==
LOC: C.ER 14:19 → C.9E 17:17 → C.5S 17:47 → OBSVTOIN 01-15 15:00 → C.3T 01-16 13:02
PROVIDERS: ADMIT Internal Medicine; ATTEND Internal Medicine
DX: J44.0 Chronic obstructive pulmonary disease with (acute) lower respiratory infection (principal); B20 Human immunodeficiency virus [HIV] disease; N39.0 Urinary tract infection, site not specified; J45.901 Unspecified asthma with (acute) exacerbation; F11.20 Opioid dependence, uncomplicated; J20.9 Acute bronchitis, unspecified; J11.1 Influenza due to unidentified influenza virus with other respiratory manifestations; J44.1 Chronic obstructive pulmonary disease with (acute) exacerbation; I10 Essential (primary) hypertension; F17.200 Nicotine dependence, unspecified, uncomplicated; H54.62 Unqualified visual loss, left eye, normal vision right eye

== ENCOUNTER 2018-02-03 16:31 | Inpatient (IN) | payer MEDICAID ==
[2018-02-03 16:32] VITALS: BMI 22.8
[2018-02-03] MEDS ORDERED: Albuterol-Ipratrop 3 mg / 0.5 (3 ml) UD INH STA ×2 (18:04→18:05)
[2018-02-03] MEDS ORDERED: MethylPREDNISolone 40 mg Vial IVP STA (18:04)
[2018-02-03] MEDS ORDERED: Piperacillin/Tazobact 3.375 gm 100 ML IVPB STA (18:05)
--- NOTE | 2018-02-03 18:15 | C.PDOC ---
History Of Present Illness 57 y/o female with a PMHx of asthma, HIV (unknown CD4 count and viral load), presents to the ED complaining of intermittent fever and generalized bodyaches for the past week. Reports cough productive of white sputum. Patient saw PMD today, who sent him to the ED for further evaluation. Time Seen by Provider: 02/03/18 17:45 Chief Complaint (Nursing): Fever History Per: Patient History/Exam Limitations: no limitations Onset/Duration Of Symptoms: Days Current Symptoms Are (Timing): Still Present Past Medical History Reviewed: Historical Data, Nursing Documentation, Vital Signs Vital Signs: Last Vital Signs Temp 102.8 F H 02/03/18 17:01 Pulse 91 H 02/03/18 17:01 Resp 20 02/03/18 17:01 BP 121/79 02/03/18 17:01 Pulse Ox 93 L 02/03/18 17:01 - Medical History PMH: Asthma, COPD, Depression, HIV Denies: Chronic Kidney Disease Family History: States: Unknown Family Hx - Social History Hx Alcohol Use: Yes Hx Substance Use: Yes (previous use of heroine) - Immunization History Hx Tetanus Toxoid Vaccination: No Hx Influenza Vaccination: No Hx Pneumococcal Vaccination: No Review Of Systems Except As Marked, All Systems Reviewed And Found Negative. Constitutional: Positive for: Fever, Other (Generalized bodyaches) Cardiovascular: Negative for: Chest Pain, Palpitations Respiratory: Positive for: Cough, Sputum. Negative for: Shortness of Breath Gastrointestinal: Negative for: Nausea, Vomiting, Diarrhea Neurological: Negative for: Headache, Dizziness Physical Exam - Physical Exam Appears: Non-toxic, No Acute Distress Skin: Warm, Dry Head: Atraumatic, Normacephalic Eye(s): bilateral: Normal Inspection, PERRL, EOMI Oral Mucosa: Moist Neck: Normal ROM Cardiovascular: Rhythm Regular, No Murmur Respiratory: No Rales, Rhonchi (bilaterally), Wheezing (bilaterally), Other (No respiratory distress) Gastrointestinal/Abdominal: Soft, No Tenderness, No Distention Extremity: Bilateral: Atraumatic, Normal Color And Temperature, Normal ROM Neurological/Psych: Oriented x3, Normal Speech ED Course And Treatment - Laboratory Results Result Diagrams: 02/03/18 18:27 02/03/18 18:27 ECG: Interpreted By Me, Viewed By Me ECG Rhythm: Sinus Rhythm Interpretation Of ECG: nonspecific ST, T wave changes Rate From EC O2 Sat by Pulse Oximetry: 93 (on room air) Pulse Ox Interpretation: Abnormal - Other Rad CXR X-Ray: Read By Radiologist Interpretation: Accession No. : [id number]. Patient Name / ID : HUNG Lopez / [id number]. Exam Date : 02/03/2018 18:09:00 ( Approved ). Study Comment : Sex / Age : F / 57Y. Creator : Alvarez Pinzon MD. Dictator : Alvarez Pinzon MD. Supply Clerk : Hand Packer : Alvarez Pinzon MD. Approver2 : Report Date : 02/03/2018 18:21:31. My Comment : . Date of service: 02/03/2018. PROCEDURE: CHEST RADIOGRAPH, 1 VIEW. HISTORY: chest pain. COMPARISON: 01/13/2018. FINDINGS: LUNGS: Right lower lobe infiltrate, obscuration of the right hemidiaphragm. PLEURA: No pneumothorax or pleural fluid seen. CARDIOVASCULAR: No aortic atherosclerotic calcification present. Normal. OSSEOUS STRUCTURES: No significant abnormalities. VISUALIZED UPPER ABDOMEN: Normal. OTHER FINDINGS: None. IMPRESSION: New findings right lower lobe likely pneumonia. Medical Decision Making Medical Decision Making: Impression: Fever, Cough, Body aches Plan: --EKG --UA --Flu swab --Blood work --Blood cultures --ABG --Chest x-ray --Motrin 400 mg PO --125 mg IV Solu-Medrol --Duoneb x2 --IV vanco --Reassess Labs reviewed. CXR shows likely PNA. covered for possible pcp steriods given as aa elevated. 19:[address] Arthur's service, admitted for pneumonia and HIV, r/o PCP. 19:22 Dr. Arthur notified of changes in EKG. Disposition - Disposition Disposition: HOSPITALIZED Disposition Time: 19:00 Condition: FAIR - Clinical Impression Clinical Impression: COPD (chronic obstructive pulmonary disease), Pneumonia - Scribe Statement The provider has reviewed the documentation as recorded by the Fly Paiz Provider Attestation: All medical record entries made by the Chelseyibe were at my direction and personally dictated by me. I have reviewed the chart and agree that the record accurately reflects my personal performance of the history, physical exam, medi liudmila decision making, and the department course for this patient. I have also personally directed, reviewed, and agree with the discharge instructions and disposition. Decision To Admit - Pt Status Changed To: Hospital Disposition Of: Inpatient - Admit Certification Admit to Inpatient:: After my assessment, the patient will require hospitalization for at least two midnights. This is because of the severity of symptoms shown, intensity of services needed, and/or the medical risk in this patient being treated as an outpatient. - InPatient: Physician Admission Certification:: needs iv antibiotcs. - . Bed Request Type: Telemetry Admitting Physician: Fabien Arthur Patient Diagnosis: COPD (chronic obstructive pulmonary disease), Pneumonia
--- NOTE | 2018-02-03 18:25 | RAD ---
Date of service: 02/03/2018 PROCEDURE: CHEST RADIOGRAPH, 1 VIEW HISTORY: chest pain COMPARISON: 01/13/2018 FINDINGS: LUNGS: Right lower lobe infiltrate, obscuration of the right hemidiaphragm. PLEURA: No pneumothorax or pleural fluid seen. CARDIOVASCULAR: No aortic atherosclerotic calcification present. Normal. OSSEOUS STRUCTURES: No significant abnormalities. VISUALIZED UPPER ABDOMEN: Normal. OTHER FINDINGS: None. IMPRESSION: New findings right lower lobe likely pneumonia.
[2018-02-03 18:27] LABS: SQUAMOUS EPITHIAL 10 /hpf (0-5); URINE BILIRUBIN NEGATIVE (NEGATIVE); URINE BLOOD NEGATIVE (NEGATIVE); URINE CLARITY Hazy (Clear); URINE COLOR Yellow (YELLOW); URINE GLUCOSE (UA) NORMAL (Normal); URINE LEUKOCYTE ESTERASE TRACE Leu/uL (Negative); URINE PROTEIN NEGATIVE (NEGATIVE); URINE UROBILINOGEN NORMAL mg/dL (0.2-1.0)
[2018-02-03 18:32] LABS: ABG ALLEN TEST POS; ARTERIAL BLOOD GAS HCO3 22.1 mmol/L (21-28); ARTERIAL BLOOD GAS O2 SAT 92.1 % (95-98); ARTERIAL BLOOD GAS PCO2 32 mm/Hg (35-45); ARTERIAL BLOOD GAS PH 7.41 (7.35-7.45); ARTERIAL BLOOD GAS PO2 58 mm/Hg (80-100); ARTERIAL BLOOD GAS TCO2 21.3 mmol/L (22-28)
[2018-02-03] MEDS ORDERED: Tmp-Smz 800 mg-160 mg DS Tab PO STA (18:35)
[2018-02-03] MEDS ORDERED: Vancomycin 1 GM 1 GM/250 ML BAG IVPB ONE (18:39)
[2018-02-03] MEDS ORDERED: Albuterol-Ipratrop 3 mg / 0.5 (3 ml) UD ONE ×2 (18:39→18:54)
[2018-02-03] MEDS ORDERED: Piperacillin/Tazobact 3.375 gm 100 ML IVPB ONE (18:39)
[2018-02-03 18:40] LABS: BASO % 0.2 % (0.0-2.0); HEMOGLOBIN 13.6 g/dL (11.0-16.0); LYMPH # 1.1 K/uL (1.0-4.3); LYMPH % 15.2 % (20.0-40.0); MEAN CELL VOLUME 94.2 fL (81.0-99.0); MEAN CORPUSCULAR HEMOGLOBIN 32.1 pg (27.0-31.0); MEAN PLATELET VOLUME 8.8 fL (7.2-11.7); MONO # 0.7 K/uL (0.0-0.8); MONO % 8.8 % (0.0-10.0); NEUT # 5.6 K/uL (1.8-7.0); NEUT % 75.8 % (50.0-75.0); NRBC % 0.1 % (0.0-2.0); RBC 4.23 Mil/uL (3.80-5.20); RED CELL DISTRIBUTION WIDTH 14.4 % (11.5-14.5); WHITE BLOOD COUNT 7.4 K/uL (4.8-10.8)
[2018-02-03 18:47] LABS: INR 1.2; PROTHROMBIN TIME 13.1 SECONDS (9.7-12.2)
[2018-02-03 18:56] LABS: ALB/GLOB RATIO 1.2 (1.0-2.1); ALT/SGPT 45 U/L (9-52); AST/SGOT 88 U/L (14-36); BLOOD UREA NITROGEN 14 mg/dL (7-17); CALCIUM 8.7 mg/dl (8.6-10.4); GFR NON-AFRICAN AMERICAN 57
[2018-02-03] MEDS ORDERED: Tmp-Smz 800 mg-160 mg DS Tab ONE (19:02)
[2018-02-03] MEDS: Sulfamethoxazole/Trimethoprim 160 MG in Dextrose 5% In Water 250 ML IVPB SCH (23:30)
[2018-02-04] MEDS: Albuterol-Ipratrop 3 mg / 0.5 (3 ml) UD INH SCH ×3 (07:35→19:30)
[2018-02-04] MEDS: Tiotropium 18 mcg Cap For Inhalation INH SCH (07:35)
[2018-02-04] MEDS: Methadone 40 mg Tab PO SCH (09:25)
[2018-02-04] MEDS: Enoxaparin 40 mg Syringe SC SCH (09:26)
[2018-02-04] MEDS: Sulfamethoxazole/Trimethoprim 160 MG in Dextrose 5% In Water 250 ML IVPB SCH ×2 (10:05→21:50)
--- NOTE | 2018-02-04 12:27 | CARD ---
APPROVED REPORT Date of service: 02/03/2018 EKG Measurement Heart [id number] <Conclusion> Normal sinus rhythm Septal infarct, age undetermined T wave abnormality, consider anterior ischemia Abnormal ECG
--- NOTE | 2018-02-04 17:17 | CP.PCM.CON ---
History of Present Illness - History of Present Illness History of Present Illness: Reason for consult: Pneumonia Patient is a 57 y/o female with PMHx of asthma, COPD, AIDS, and depression, who presented to the ED on 02/03/18 with complaint of fever (102.8F in ED), body aches, cough with white phlegm, and shortness of breath. She states she has been having these symptoms for about a week. Patient has been recently admitted (01/15-01/19) for asthma exacerbation. On admission, her CXR revealed right lower lobe infiltrate, likely pneumonia. Currently, she complains of cough with white phlegm. Denies fever, chills, body aches, shortness of breath, chest pain, and leg swelling/pain. PMHx: asthma, COPD, AIDS, depression PSHx: denies Allerg: denies, NKDA FHx: denies Meds: Seroquel, Methadone 70mg, Symbicort, Ambien, Minipress Social: 3 cigarettes/day from 1/2ppd for +20 yrs; occasional alcohol use; history of Percocet abuse, recently switched to 70mg methadone in methadone clinic. -CXR (02/03): right lower lobe infiltrate, obscuration of right hemidiaphragm Review of Systems - Review of Systems All systems: reviewed and no additional remarkable complaints except (cough and shortness of breath) Past Patient History - Infectious Disease Hx of Infectious Diseases: None - Past Medical History & Family History Past Medical History?: Yes - Past Social History Smoking Status: Light Smoker < 10 Cigarettes Daily - CARDIAC Hx Cardiac Disorders: No - PULMONARY Hx Asthma: Yes Hx Chronic Obstructive Pulmonary Disease (COPD): Yes - NEUROLOGICAL Other/Comment: "Hole in the Back Of Left Eye. Left Eye impaired. - HEENT Hx HEENT Problems: Yes Other/Comment: Left eye blind - RENAL Hx Chronic Kidney Disease: No - ENDOCRINE/METABOLIC Hx Endocrine Disorders: No - HEMATOLOGICAL/ONCOLOGICAL Hx Human Immunodeficiency Virus (HIV): Yes - INTEGUMENTARY Hx Dermatological Problems: No - MUSCULOSKELETAL/RHEUMATOLOGICAL Hx Falls: No - GASTROINTESTINAL Hx Gastrointestinal Disorders: No - GENITOURINARY/GYNECOLOGICAL Hx Genitourinary Disorders: No - PSYCHIATRIC Hx Substance Use: Yes - SURGICAL HISTORY Hx Surgeries: No - ANESTHESIA Hx Anesthesia: No Has any member of the family had a problem w/ anesthesia?: No Meds Allergies/Adverse Reactions: Allergies Allergy/AdvReac Type Severity Reaction Status Date / Time No Known Allergies Allergy Verified 02/03/18 19:25 - Medications Medications: Current Medications Albuterol/Ipratropium (Duoneb 3 Mg/0.5 Mg (3 Ml) Ud) 3 ml INH RQ6 [facility] Last Admin: 02/04/18 13:30 Dose: 3 ml Enoxaparin Sodium (Lovenox) 40 mg SC DAILY [facility] Last Admin: 02/04/18 09:26 Dose: 40 mg Guaifenesin (Robitussin) 200 mg PO Q4H PRN PRN Reason: Cough and congestion Trimethoprim/Sulfamethoxazole (160 mg/ Dextrose) 250 mls @ 250 mls/hr IVPB Q12H [facility]; Protocol Last Admin: 02/04/18 10:05 Dose: 250 mls/hr Influenza Virus Vaccine (Fluzone Quad [id number]) 60 mcg IM .ONCE ONE Stop: 02/06/18 11:01 Methadone HCl (Methadose) 40 mg PO DAILY [facility] Last Admin: 02/04/18 09:25 Dose: 40 mg Methadone HCl (Methadone) 30 mg PO DAILY [facility] Last Admin: 02/04/18 09:25 Dose: 30 mg Methylprednisolone (Solu-Medrol) 60 mg IV Q12 [facility] Last Admin: 02/04/18 09:27 Dose: 60 mg Quetiapine Fumarate (Seroquel) 100 mg PO [facility] Tiotropium Roland (Spiriva) 18 mcg INH RQ24 [facility] Last Admin: 02/04/18 07:35 Dose: Not Given Physical Exam - Head Exam Head Exam: ATRAUMATIC, NORMOCEPHALIC - ENT Exam ENT Exam: Mucous Membranes Moist - Neck Exam Neck exam: Positive for: Normal Inspection - Respiratory Exam Respiratory Exam: Rales, Rhonchi - Cardiovascular Exam Cardiovascular Exam: REGULAR RHYTHM - GI/Abdominal Exam GI & Abdominal Exam: Normal Bowel Sounds, Soft - Extremities Exam Extremities exam: Positive for: normal inspection Results - Vital Signs Recent Vital Signs: Last Vital Signs Temp 97.8 F 02/04/18 07:00 Pulse 55 L 02/04/18 11:57 Resp 18 02/04/18 07:00 BP 120/70 02/04/18 07:00 Pulse Ox 98 02/04/18 07:00 - Labs Result Diagrams: 02/03/18 18:27 02/03/18 18:27 Labs: Laboratory Results - last 24 hr 02/03/18 02/03/18 02/03/18 18:00 18:25 18:27 WBC 7.4 RBC 4.23 Hgb 13.6 Hct 39.9 MCV 94.2 MCH 32.1 H MCHC 34.0 RDW 14.4 Plt Count 136 MPV 8.8 Neut % (Auto) 75.8 H Lymph % (Auto) 15.2 L [place] % (Auto) 8.8 Eos % (Auto) 0.0 Baso % (Auto) 0.2 Neut # (Auto) 5.6 Lymph # (Auto) 1.1 [place] # (Auto) 0.7 Eos # (Auto) 0.0 Baso # (Auto) 0.0 PT INR APTT Puncture Site Rra pCO2 32 L pO2 58 L HCO3 22.1 ABG pH 7.41 ABG Total CO2 21.3 L ABG O2 Saturation 92.1 L ABG Base Excess -3.4 L Riley Test Pos ABG Potassium 3.5 L A-a O2 Difference 52.0 Respiratory Index 0.9 Sodium 135.0 Chloride 107.0 Glucose 96 Lactate 0.7 FiO2 21.0 Potassium Carbon Dioxide Anion Gap BUN Creatinine Est GFR ( Amer) Est GFR (Non-Af Amer) Random Glucose Calcium Total Bilirubin AST ALT Alkaline Phosphatase Lactate Dehydrogenase Troponin I Total Protein Albumin Globulin Albumin/Globulin Ratio Arterial Blood Potassium 3.5 L Urine Color Yellow Urine Clarity Hazy Urine pH 5.0 Ur Specific [place] 1.016 Urine Protein Negative Urine Glucose (UA) Normal Urine Ketones Trace Urine Blood Negative Urine Nitrate Negative Urine Bilirubin Negative Urine Urobilinogen Normal Ur Leukocyte Esterase Trace Urine WBC (Auto) 7 H Urine RBC (Auto) 1 Ur Squamous Epith Cells 10 H Influenza Typ A,B (EIA) 02/03/18 02/03/18 02/03/18 18:27 18:27 18:27 WBC RBC Hgb Hct MCV MCH MCHC RDW Plt Count MPV Neut % (Auto) Lymph % (Auto) [place] % (Auto) Eos % (Auto) Baso % (Auto) Neut # (Auto) Lymph # (Auto) [place] # (Auto) Eos # (Auto) Baso # (Auto) PT 13.1 H INR 1.2 APTT 33 Puncture Site pCO2 pO2 HCO3 ABG pH ABG Total CO2 ABG O2 Saturation ABG Base Excess Riley Test ABG Potassium A-a O2 Difference Respiratory Index Sodium 134 Chloride 98 Glucose Lactate FiO2 Potassium 4.0 Carbon Dioxide 23 Anion Gap 16 BUN 14 Creatinine 1.0 Est GFR ( Amer) > 60 Est GFR (Non-Af Amer) 57 Random Glucose 103 Calcium 8.7 Total Bilirubin 0.7 AST 88 H D ALT 45 Alkaline Phosphatase 82 Lactate Dehydrogenase 1000 H Troponin I < 0.0120 Total Protein 7.4 Albumin 4.0 Globulin 3.4 Albumin/Globulin Ratio 1.2 Arterial Blood Potassium Urine Color Urine Clarity Urine pH Ur Specific [place] Urine Protein Urine Glucose (UA) Urine Ketones Urine Blood Urine Nitrate Urine Bilirubin Urine Urobilinogen Ur Leukocyte Esterase Urine WBC (Auto) Urine RBC (Auto) Ur Squamous Epith Cells Influenza Typ A,B (EIA) Negative for flu a/b Assessment & Plan (1) Pneumonia Status: Acute Comment: continue antibiotics. Steroids. Nebulizer treatment (2) COPD (chronic obstructive pulmonary disease) Status: Acute
--- NOTE | 2018-02-04 17:43 | CP.PCM.CON ---
History of Present Illness - History of Present Illness History of Present Illness: 57 y/o female presented to the ED on 02/03/18 with complaint of fever (102.8F in ED), body aches, cough with white phlegm, and shortness of breath. On admission, her CXR revealed right lower lobe infiltrate, likely pneumonia. ID consulted for this PMHx: asthma, COPD, AIDS, depression PSHx: denies Allerg: denies, NKDA FHx: denies Meds: Seroquel, Methadone 70mg, Symbicort, Ambien, Minipress Social: 3 cigarettes/day from 1/2ppd for +20 yrs; occasional alcohol use; history of Percocet abuse, recently switched to 70mg methadone in methadone clinic. Review of Systems - Review of Systems All systems: reviewed and no additional remarkable complaints except - Constitutional Constitutional: As Per HPI - EENT Eyes: absent: As Per HPI, Blind Spots, Blurred Vision, Change in Vision, Decreased Night Vision, Diplopia, Discharge, Dry Eye, Exophthalmos, Floaters, Irritation, Itchy Eyes, Loss of Peripheral Vision, Pain, Photophobia, Requires Corrective Lenses, Sees Flashes, Spots in Vision, Tunnel Vision, Other Visual Disturbances, Loss of Vision, Other Ears: absent: As Per HPI, Decreased Hearing, Ear Discharge, Ear Pain, Tinnitus, Abnormal Hearing, Disequilibrium, Dizziness, Other Nose/Mouth/Throat: absent: As Per HPI, Epistaxis, Nasal Congestion, Nasal Discharge, Nasal Obstruction, Nasal Trauma, Nose Pain, Post Nasal Drip, Sinus Pain, Sinus Pressure, Bleeding Gums, Change in Voice, Dental Pain, Dry Mouth, D ysphagia, Halitosis, Hoarsness, Lip Swelling, Mouth Lesions, Mouth Pain, Odynophagia, Sore Throat, Throat Swelling, Tongue Swelling, Facial Pain, Neck Pain, Neck Mass, Other - Breasts Breasts: absent: As Per HPI, Change in Shape, Mass, Pain, Nipple Discharge, N ipple Inversion, Skin Changes, Swelling, Other - Cardiovascular Cardiovascular: absent: As Per HPI, Acrocyanosis, Chest Pain, Chest Pain at Rest, Chest Pain with Activity, Claudication, Diaphoresis, Dyspnea, Dyspnea on Exertion, Edema, Irregular Heart Rhythm, Pain Radiating to Arm/Neck/Jaw, Leg Edema, Leg Ulcers, Lightheadedness, Orthopnea, Palpitations, Paroxysmal Nocturnal Dyspnea, Pedal Edema, Radiating Pain, Rapid Heart Rate, Slow Heart Rate, Syncope, Other - Respiratory Respiratory: As Per HPI, Cough. absent: Hemoptysis - Gastrointestinal Gastrointestinal: absent: As Per HPI, Abdominal Pain, Belching, Bloating, Change in Bowel Habits, Change in Stool Character, Coffee Ground Emesis, Constipation, Cramping, Diarrhea, Dyspepsia, Dysphagia, Early Satiety, Excessive Flatus, Fecal Incontinence, Heartburn, Hematemesis, Hematochezia, Loose Stools, Melena, Nausea, Odynophagia, Temesmus, Vomiting, Other - Genitourinary Genitourinary: absent: As Per HPI, Change in Urinary Stream, Difficulty Urinating, Dysuria, Flank Pain, Hematuria, Pyuria, Nocturia, Urinary Incontinence, Urinary Frequency, Urinary Hesitance, Urinary Urgency, Voiding Freq/Small Amts, Freq UTI, Hx Renal/Bladder Calculi, Hx /Renal Surgery, Bladder Distension, Other - Reproductive: Female Reproductive:Female: absent: As Per HPI, Amenorrhea, Amenorrhea/ Control, Currently Menstual, Cycle <21 Days, Cycle >35 Days, Cycle Variable, Menses 1-7 Days, Menses >/= 8 Days, Menses Variable, Cycle > 4 Weeks Between, No Menses for 6 Months, Heavy Menses, Light Menses, Normal Menses, Spotting Between Cycles, S/P Hysterectomy, Menopausal, Post Menopausal, Premenarche, Abnormal Vaginal Bleeding, Dysmenorrhea, Dyspareunia, Genital Lesions, Genital Pruritis, Pelvic Pain, Prolapse Symptoms, Sexual Dysfunction, Vaginal Discharge, Vaginal Dryness, Vaginal Odor, Vaginal Pruritis, Other - Menstruation Menstruation: absent: As Per HPI, Amenorrhea, Amenorrhea/ Control, Currently Menstual, Cycle <21 Days, Cycle >35 Days, Cycle Variable, Menses 1-7 Days, Menses >/= 8 Days, Menses Variable, Cycle > 4 Weeks Between, No Menses for 6 Months, Heavy Menses, Light Menses, Normal Menses, Spotting Between Cycles, S/P Hysterectomy, Menopausal, Post Menopausal, Premenarche, Abnormal Vaginal B leeding, Dysmenorrhea, Other Past Patient History - Infectious Disease Hx of Infectious Diseases: None - Past Medical History & Family History Past Medical History?: Yes - Past Social History Smoking Status: Light Smoker < 10 Cigarettes Daily - CARDIAC Hx Cardiac Disorders: No - PULMONARY Hx Asthma: Yes Hx Chronic Obstructive Pulmonary Disease (COPD): Yes - NEUROLOGICAL Other/Comment: "Hole in the Back Of Left Eye. Left Eye impaired. - HEENT Hx HEENT Problems: Yes Other/Comment: Left eye blind - RENAL Hx Chronic Kidney Disease: No - ENDOCRINE/METABOLIC Hx Endocrine Disorders: No - HEMATOLOGICAL/ONCOLOGICAL Hx Human Immunodeficiency Virus (HIV): Yes - INTEGUMENTARY Hx Dermatological Problems: No - MUSCULOSKELETAL/RHEUMATOLOGICAL Hx Falls: No - GASTROINTESTINAL Hx Gastrointestinal Disorders: No - GENITOURINARY/GYNECOLOGICAL Hx Genitourinary Disorders: No - PSYCHIATRIC Hx Substance Use: Yes - SURGICAL HISTORY Hx Surgeries: No - ANESTHESIA Hx Anesthesia: No Has any member of the family had a problem w/ anesthesia?: No Meds Allergies/Adverse Reactions: Allergies Allergy/AdvReac Type Severity Reaction Status Date / Time No Known Allergies Allergy Verified 02/03/18 19:25 - Medications Medications: Current Medications Albuterol/Ipratropium (Duoneb 3 Mg/0.5 Mg (3 Ml) Ud) [address] [facility] Last Admin: 02/04/18 13:30 Dose: 3 ml Enoxaparin Sodium (Lovenox) [address] [facility] Last Admin: 02/04/18 09:26 Dose: 40 mg Guaifenesin (Robitussin) 200 mg PO Q4H PRN PRN Reason: Cough and congestion Trimethoprim/Sulfamethoxazole (160 mg/ Dextrose) 250 mls @ 250 mls/hr IVPB Q12H [facility]; Protocol Last Admin: 02/04/18 10:05 Dose: 250 mls/hr Influenza Virus Vaccine (Fluzone Quad [id number]) 60 mcg IM .ONCE ONE Stop: 02/06/18 11:01 Methadone HCl (Methadose) [address] [facility] Last Admin: 02/04/18 09:25 Dose: 40 mg Methadone HCl (Methadone) [address] [facility] Last Admin: 02/04/18 09:25 Dose: 30 mg Methylprednisolone (Solu-Medrol) [address] [facility] Last Admin: 02/04/18 09:27 Dose: 60 mg Quetiapine Fumarate (Seroquel) [address] [facility] Tiotropium [place] (Spiriva) 18 mcg INH RQ24 [facility] Last Admin: 02/04/18 07:35 Dose: Not Given Physical Exam - Constitutional Appears: Non-toxic, Cachectic, Chronically Ill - Head Exam Head Exam: ATRAUMATIC, NORMOCEPHALIC - Eye Exam Eye Exam: EOMI, PERRL. absent: Scleral icterus - ENT Exam ENT Exam: Mucous Membranes Dry, Normal External Ear Exam - Neck Exam Neck exam: Negative for: Lymphadenopathy - Respiratory Exam Respiratory Exam: Decreased Breath Sounds, Prolonged Expiratory Phase, Rhonchi - Cardiovascular Exam Cardiovascular Exam: REGULAR RHYTHM, +S1, +S2 - GI/Abdominal Exam GI & Abdominal Exam: Diminished Bowel Sounds, Soft. absent: Tenderness - Rectal Exam Rectal Exam: Deferred - Exam Exam: NORMAL INSPECTION - Extremities Exam Extremities exam: Negative for: pedal edema - Back Exam Back exam: absent: CVA tenderness (L), CVA tenderness (R) - Neurological Exam Neurological exam: Alert, CN II-XII Intact, Oriented x3, Reflexes Normal - Psychiatric Exam Psychiatric exam: Depressed - Skin Skin Exam: Dry, Intact Results - Vital Signs Recent Vital Signs: Last Vital Signs Temp 97.8 F 02/04/18 07:00 Pulse 55 L 02/04/18 11:57 Resp 18 02/04/18 07:00 BP 120/70 02/04/18 07:00 Pulse Ox 98 02/04/18 07:00 - Labs Result Diagrams: 02/03/18 18:27 02/03/18 18:27 Labs: Laboratory Results - last 24 hr 02/03/18 02/03/18 02/03/18 18:00 18:25 18:27 WBC 7.4 RBC 4.23 Hgb 13.6 Hct 39.9 MCV 94.2 MCH 32.1 H MCHC 34.0 RDW 14.4 Plt Count 136 MPV 8.8 Neut % (Auto) 75.8 H Lymph % (Auto) 15.2 L [place] % (Auto) 8.8 Eos % (Auto) 0.0 Baso % (Auto) 0.2 Neut # (Auto) 5.6 Lymph # (Auto) 1.1 [place] # (Auto) 0.7 Eos # (Auto) 0.0 Baso # (Auto) 0.0 PT INR APTT Puncture Site Rra pCO2 32 L pO2 58 L HCO3 22.1 ABG pH 7.41 ABG Total CO2 21.3 L ABG O2 Saturation 92.1 L ABG Base Excess -3.4 L [place] Test Pos ABG Potassium 3.5 L A-a O2 Difference 52.0 Respiratory Index 0.9 Sodium 135.0 Chloride 107.0 Glucose 96 Lactate 0.7 FiO2 21.0 Potassium Carbon Dioxide Anion Gap BUN Creatinine Est GFR ( Amer) Est GFR (Non-Af Amer) Random Glucose Calcium Total Bilirubin AST ALT Alkaline Phosphatase Lactate Dehydrogenase Troponin I Total Protein Albumin Globulin Albumin/Globulin Ratio Arterial Blood Potassium 3.5 L Urine Color Yellow Urine Clarity Hazy Urine pH 5.0 Ur Specific [place] 1.016 Urine Protein Negative Urine Glucose (UA) Normal Urine Ketones Trace Urine Blood Negative Urine Nitrate Negative Urine Bilirubin Negative Urine Urobilinogen Normal Ur Leukocyte Esterase Trace Urine WBC (Auto) 7 H Urine RBC (Auto) 1 Ur Squamous Epith Cells 10 H Influenza Typ A,B (EIA) 02/03/18 02/03/18 02/03/18 18:27 18:27 18:27 WBC RBC Hgb Hct MCV MCH MCHC RDW Plt Count MPV Neut % (Auto) Lymph % (Auto) [place] % (Auto) Eos % (Auto) Baso % (Auto) Neut # (Auto) Lymph # (Auto) [place] # (Auto) Eos # (Auto) Baso # (Auto) PT 13.1 H INR 1.2 APTT 33 Puncture Site pCO2 pO2 HCO3 ABG pH ABG Total CO2 ABG O2 Saturation ABG Base Excess [place] Test ABG Potassium A-a O2 Difference Respiratory Index Sodium 134 Chloride 98 Glucose Lactate FiO2 Potassium 4.0 Carbon Dioxide 23 Anion Gap 16 BUN 14 Creatinine 1.0 Est GFR ( Amer) > 60 Est GFR (Non-Af Amer) 57 Random Glucose 103 Calcium 8.7 Total Bilirubin 0.7 AST 88 H D ALT 45 Alkaline Phosphatase 82 Lactate Dehydrogenase 1000 H Troponin I < 0.0120 Total Protein 7.4 Albumin 4.0 Globulin 3.4 Albumin/Globulin Ratio 1.2 Arterial Blood Potassium Urine Color Urine Clarity Urine pH Ur Specific [place] Urine Protein Urine Glucose (UA) Urine Ketones Urine Blood Urine Nitrate Urine Bilirubin Urine Urobilinogen Ur Leukocyte Esterase Urine WBC (Auto) Urine RBC (Auto) Ur Squamous Epith Cells Influenza Typ A,B (EIA) Negative for flu a/b Assessment & Plan (1) COPD (chronic obstructive pulmonary disease) Status: Acute (2) Pneumonia Status: Acute (3) Bronchitis Status: Acute - Assessment and Plan (Free Text) Assessment: agree with IV antibiotics need to be evaluated for HAART rx await T cells and viral load may need CT chest will discuss with dr Yoo
--- NOTE | 2018-02-04 21:13 | CP.PCM.HP ---
Past Patient History - Infectious Disease Hx of Infectious Diseases: None - Past Medical History & Family History Past Medical History?: Yes - Past Social History Smoking Status: Light Smoker < 10 Cigarettes Daily - CARDIAC Hx Cardiac Disorders: No - PULMONARY Hx Asthma: Yes Hx Chronic Obstructive Pulmonary Disease (COPD): Yes - NEUROLOGICAL Other/Comment: "Hole in the Back Of Left Eye. Left Eye impaired. - HEENT Hx HEENT Problems: Yes Other/Comment: Left eye blind - RENAL Hx Chronic Kidney Disease: No - ENDOCRINE/METABOLIC Hx Endocrine Disorders: No - HEMATOLOGICAL/ONCOLOGICAL Hx Human Immunodeficiency Virus (HIV): Yes - INTEGUMENTARY Hx Dermatological Problems: No - MUSCULOSKELETAL/RHEUMATOLOGICAL Hx Falls: No - GASTROINTESTINAL Hx Gastrointestinal Disorders: No - GENITOURINARY/GYNECOLOGICAL Hx Genitourinary Disorders: No - PSYCHIATRIC Hx Substance Use: Yes - SURGICAL HISTORY Hx Surgeries: No - ANESTHESIA Hx Anesthesia: No Has any member of the family had a problem w/ anesthesia?: No Meds Allergies/Adverse Reactions: Allergies Allergy/AdvReac Type Severity Reaction Status Date / Time No Known Allergies Allergy Verified 02/03/18 19:25 Results - Vital Signs Recent Vital Signs: Last Vital Signs Temp 97.8 F 02/04/18 07:00 Pulse 55 L 02/04/18 11:57 Resp 18 02/04/18 07:00 BP 120/70 02/04/18 07:00 Pulse Ox 98 02/04/18 07:00 - Labs Result Diagrams: 02/03/18 18:27 02/03/18 18:27 Labs: Laboratory Results - last 24 hr 02/04/18 17:21 Troponin I < 0.0120
[2018-02-04] MEDS: guaiFENesin 200 mg/10 ml Syrup UD PO PRN (21:25)
--- NOTE | 2018-02-04 21:43 | CARD ---
APPROVED REPORT Date of service: 02/04/2018 EXAM: Two-dimensional and M-mode echocardiogram with Doppler and color Doppler. Other Information Quality : GoodRhythm : INDICATION Abnormal EKG/Arrhythmia Dyspnea COPD HIV 2D DIMENSIONS IVSd0.9 (0.7-1.1cm)LVDd4.7 (3.9-5.9cm) PWd1.0 (0.7-1.1cm)LA Hldnxw99 (18-58mL) LVDs3.0 (2.5-4.0cm)FS (%) 35.6 % LVEF (%)65.1 (>50%)LVEF ([facility]'s)71.63 % M-Mode DIMENSIONS Left Atrium (MM)3.39 (2.5-4.0cm)IVSd0.84 (0.7-1.1cm) Aortic Root3.23 (2.2-3.7cm)LVDd5.33 (4.0-5.6cm) Aortic Cusp Exc.2.34 (1.5-2.0cm)PWd1.03 (0.7-1.1cm) FS (%) 45 %LVDs2.91 (2.0-3.8cm) LVEF (%)76 (>50%) Mitral Valve MV E Dbavezul83.3cm/sMV A Ihmpsoua54.4cm/sE/A ratio1.1 TDI Lateral E' Peak V10.09cm/sMedial E' Peak V11.39cm/sE/Lateral E'7.1 E/Medial E'6.3 Tricuspid Valve TR Peak Rvzlhvun389ha/sTR Peak [id number] LEFT VENTRICLE The left ventricle is normal size. There is normal left ventricular wall thickness. Left ventricle systolic function is normal. The Ejection Fraction is 65-70%. There is normal LV segmental wall motion. The left ventricular diastolic function is normal. There is no ventricular septal defect visualized. RIGHT VENTRICLE The right ventricle is normal size. The right ventricular systolic function is normal. ATRIA The left atrium is borderline dilated. The right atrium size is normal. AORTIC VALVE The aortic valve is tri-cuspid. The aortic valve is normal in structure. No aortic regurgitation is present. There is no aortic valvular stenosis. MITRAL VALVE The mitral valve is normal in structure. There is no evidence of mitral valve prolapse. Mitral regurgitation is trace. TRICUSPID VALVE The tricuspid valve is normal in structure. There is trace tricuspid regurgitation. Right ventricular systolic pressure is estimated at less than 30 mmHg. There is no pulmonary hypertension. PULMONIC VALVE The pulmonary valve is normal in structure. There is trace pulmonic valvular regurgitation. GREAT VESSELS The aortic root is normal in size. The ascending aorta is normal in size. The IVC is normal in size and collapses >50% with inspiration. PERICARDIAL EFFUSION There is no pericardial effusion. <Conclusion> Left ventricle systolic function is normal. The Ejection Fraction is 65-70%. The left ventricular diastolic function is normal. Mitral regurgitation is trace.
[2018-02-04] MEDS: Piperacill/Tazo 3.375gm in Dex 3.375 GM/50 ML BAG IVPB SCH (21:49)
--- NOTE | 2018-02-05 00:22 | CON ---
DATE: 02/04/2018 REASON FOR CONSULTATION: Shortness of breath. HISTORY OF PRESENT ILLNESS: The patient is a 57-year-old female who was diagnosed with HIV positive, has a history of bronchial asthma. The patient is a heavy smoker. She presented because of fever and productive cough of whitish sputum. The patient is unaware of any prior cardiac history. SOCIAL HISTORY: The patient is smoker. She denies any prior drug abuse. INDICATIONS: Lovenox 40 mg subcutaneously daily, methadone 30 mg once a day, Robitussin 200 mg p.o. every 4 hours p.r.n. Seroquel 100 mg once a day, Solu-Medrol 60 mg twice a day intravenously, Spiriva 80 mcg inhalation daily, Bactrim 160 mg intravenously every 12 hours. PHYSICAL EXAMINATION: VITAL SIGNS: The patient is a middle-aged female who does not appear to be in acute distress. However, she is mildly dyspneic. VITAL SIGNS: Blood pressure 120/70, heart rate 50, temperature 97.8, respirations 18. HEENT: Normocephalic. CHEST: Diffuse bilateral rhonchi and scattered wheezing. HEART: S1, S2 regular. EXTREMITIES: No edema. LABORATORY DATA: Admitting SMA-7 is within normal limits. CBC, WBC, hemoglobin, hematocrit, and white count on admission are within normal limit. INR is 1.2. PTT 33. Influenza type A and B serology was negative. EKG revealed sinus rhythm at 79, septal infarct indeterminate, T-wave abnormality, consider inferior ischemia. Chest x-ray revealed vertical heart, COPD picture, no acute infiltrates. EKG revealed sinus rhythm at the rate of 79, anterior T-wave inversion, consider anterior ischemia. ASSESSMENT: 1. Consider underlying pneumonia. 2. Human immunodeficiency virus positive. 3. Chronic obstructive lung disease. RECOMMENDATIONS: Continue current IV Bactrim, continue current IV Solu-Medrol, subcutaneous Lovenox, albuterol and methadone. Obtain urine for drug screen and an echocardiogram as well as one more set of troponin. The first one has been negative. Bob Garcia MD
[2018-02-05] MEDS: Albuterol-Ipratrop 3 mg / 0.5 (3 ml) UD INH SCH ×4 (01:35→19:10)
[2018-02-05] MEDS: Piperacill/Tazo 3.375gm in Dex 3.375 GM/50 ML BAG IVPB SCH ×4 (02:36→21:00)
[2018-02-05 07:15] LABS: HEPATITIS B SURFACE AG Negative (NEGATIVE)
[2018-02-05 07:21] LABS: HEPATITIS A IGM NEGATIVE (NEGATIVE); HEPATITIS B CORE AB NEGATIVE (NEGATIVE)
[2018-02-05 07:33] LABS: HEPATITIS C ANTIBODY NEGATIVE (NEGATIVE)
[2018-02-05] MEDS: Tiotropium 18 mcg Cap For Inhalation INH SCH (08:00)
[2018-02-05] MEDS: guaiFENesin 200 mg/10 ml Syrup UD PO PRN ×2 (10:21→21:05)
[2018-02-05] MEDS: Methadone 40 mg Tab PO SCH (10:21)
[2018-02-05] MEDS: Enoxaparin 40 mg Syringe SC SCH (10:21)
[2018-02-05] MEDS: Sulfamethoxazole/Trimethoprim 160 MG in Dextrose 5% In Water 250 ML IVPB SCH ×2 (11:46→22:09)
--- NOTE | 2018-02-05 16:19 | CP.PCM.PN ---
Subjective - Date & Time of Evaluation Date of Evaluation: 02/05/18 Time of Evaluation: 07:00 - Subjective Subjective: less cough less sob await T cells cont iv rx doesnt be her meds - HAART rx from clinic Objective - Vital Signs/Intake and Output Vital Signs (last 24 hours): Temp Pulse Resp BP Pulse Ox 97.9 F 63 18 105/72 96 02/05/18 07:00 02/05/18 13:17 02/05/18 07:00 02/05/18 07:00 02/05/18 07:00 Intake and Output: 02/05/18 02/05/18 06:59 18:59 Intake Total 170 550 Balance 170 550 - Medications Medications: Current Medications Albuterol/Ipratropium (Duoneb 3 Mg/0.5 Mg (3 Ml) Ud) 3 ml INH RQ6 [facility] Last Admin: 02/05/18 13:30 Dose: 3 ml Enoxaparin Sodium (Lovenox) 40 mg SC DAILY [facility] Last Admin: 02/05/18 10:21 Dose: 40 mg Guaifenesin (Robitussin) 200 mg PO Q4H PRN PRN Reason: Cough and congestion Last Admin: 02/05/18 10:21 Dose: 200 mg Trimethoprim/Sulfamethoxazole (160 mg/ Dextrose) 250 mls @ 250 mls/hr IVPB Q12H [facility]; Protocol Last Admin: 02/05/18 11:46 Dose: 250 mls/hr Piperacillin Sod/Tazobactam Sod (Zosyn 3.375 Gm Iv Premix) 3.375 gm in 50 mls @ 100 mls/hr IVPB Q6H [facility]; Protocol Last Admin: 02/05/18 15:36 Dose: 100 mls/hr Influenza Virus Vaccine (Fluzone Quad [id number]) 60 mcg IM .ONCE ONE Stop: 02/06/18 11:01 Methadone HCl (Methadose) 40 mg PO DAILY [facility] Last Admin: 02/05/18 10:21 Dose: 40 mg Methadone HCl (Methadone) 30 mg PO DAILY [facility] Last Admin: 02/05/18 10:21 Dose: 30 mg Methylprednisolone (Solu-Medrol) 60 mg IV Q12 [facility] Last Admin: 02/05/18 10:21 Dose: 60 mg Quetiapine Fumarate (Seroquel) 100 mg PO HS [facility] Last Admin: 02/04/18 21:24 Dose: 100 mg Tiotropium [place] (Spiriva) 18 mcg INH RQ24 [facility] Last Admin: 02/05/18 08:00 Dose: 18 mcg - Labs Labs: 02/03/18 18:27 02/03/18 18:27 PT 13.1 SECONDS (9.7-12.2) H 02/03/18 18:27 INR 1.2 02/03/18 18:27 APTT 33 SECONDS (21-34) 02/03/18 18:27 - Constitutional Appears: Non-toxic, Chronically Ill - Head Exam Head Exam: NORMOCEPHALIC - Eye Exam Eye Exam: absent: Scleral icterus - ENT Exam ENT Exam: Mucous Membranes Dry - Neck Exam Neck Exam: absent: Lymphadenopathy - Respiratory Exam Respiratory Exam: Decreased Breath Sounds - Cardiovascular Exam Cardiovascular Exam: REGULAR RHYTHM - GI/Abdominal Exam GI & Abdominal Exam: Distended, Soft - Rectal Exam Rectal Exam: Deferred Assessment and Plan (1) COPD (chronic obstructive pulmonary disease) Status: Acute (2) Pneumonia Status: Acute (3) Bronchitis Status: Acute - Assessment and Plan (Free Text) Assessment: cont iv rx as ordered start HAART rx
--- NOTE | 2018-02-05 16:20 | CP.PCM.PN ---
Subjective - Date & Time of Evaluation Date of Evaluation: 02/05/18 Time of Evaluation: 10:20 - Subjective Subjective: Patient seen and examined at bedside, lying down comfortably. Denies chest pain, shortness of breath, fever. Still complains of occasional cough with white phlegm; improved since yesterday. Using NC throughout the day. Continue antibiotics. Obtain CT chest. -ECHO (02/04): EF = 65-70% Objective - Vital Signs/Intake and Output Vital Signs (last 24 hours): Temp Pulse Resp BP Pulse Ox 97.9 F 63 18 105/72 96 02/05/18 07:00 02/05/18 13:17 02/05/18 07:00 02/05/18 07:00 02/05/18 07:00 Intake and Output: 02/05/18 02/05/18 06:59 18:59 Intake Total 170 550 Balance 170 550 - Medications Medications: Current Medications Albuterol/Ipratropium (Duoneb 3 Mg/0.5 Mg (3 Ml) Ud) 3 ml INH RQ6 [facility] Last Admin: 02/05/18 13:30 Dose: 3 ml Enoxaparin Sodium (Lovenox) 40 mg SC DAILY [facility] Last Admin: 02/05/18 10:21 Dose: 40 mg Guaifenesin (Robitussin) 200 mg PO Q4H PRN PRN Reason: Cough and congestion Last Admin: 02/05/18 10:21 Dose: 200 mg Trimethoprim/Sulfamethoxazole (160 mg/ Dextrose) 250 mls @ 250 mls/hr IVPB Q12H [facility]; Protocol Last Admin: 02/05/18 11:46 Dose: 250 mls/hr Piperacillin Sod/Tazobactam Sod (Zosyn 3.375 Gm Iv Premix) 3.375 gm in 50 mls @ 100 mls/hr IVPB Q6H [facility]; Protocol Last Admin: 02/05/18 15:36 Dose: 100 mls/hr Influenza Virus Vaccine (Fluzone Quad [id number]) 60 mcg IM .ONCE ONE Stop: 02/06/18 11:01 Methadone HCl (Methadose) 40 mg PO DAILY [facility] Last Admin: 02/05/18 10:21 Dose: 40 mg Methadone HCl (Methadone) 30 mg PO DAILY [facility] Last Admin: 02/05/18 10:21 Dose: 30 mg Methylprednisolone (Solu-Medrol) 60 mg IV Q12 [facility] [place] Last Admin: 02/05/18 10:21 Dose: 60 mg Quetiapine Fumarate (Seroquel) 100 mg PO HS [facility] Last Admin: 02/04/18 21:24 Dose: 100 mg Tiotropium [place] (Spiriva) 18 mcg INH RQ24 [facility] [place] Last Admin: 02/05/18 08:00 Dose: 18 mcg - Labs Labs: 02/03/18 18:27 02/03/18 18:27 PT 13.1 SECONDS (9.7-12.2) H 02/03/18 18:27 INR 1.2 02/03/18 18:27 APTT 33 SECONDS (21-34) 02/03/18 18:27 - Head Exam Head Exam: ATRAUMATIC, NORMOCEPHALIC - ENT Exam ENT Exam: Mucous Membranes Moist - Neck Exam Neck Exam: Normal Inspection - Respiratory Exam Respiratory Exam: Clear to Ausculation Bilateral - Cardiovascular Exam Cardiovascular Exam: REGULAR RHYTHM - GI/Abdominal Exam GI & Abdominal Exam: Soft, Normal Bowel Sounds Assessment and Plan (1) Pneumonia Assessment & Plan: continue antibiotics Followup chest x-ray CAT scan of the chest Status: Acute (2) COPD (chronic obstructive pulmonary disease) Status: Acute
--- NOTE | 2018-02-05 21:30 | CP.PCM.PN ---
Subjective - Subjective Subjective: dictated Objective - Vital Signs/Intake and Output Vital Signs (last 24 hours): Temp Pulse Resp BP Pulse Ox 97.9 F 90 20 99/66 L 95 02/05/18 15:05 02/05/18 15:05 02/05/18 15:05 02/05/18 15:05 02/05/18 15:05 Intake and Output: 02/05/18 02/06/18 18:59 06:59 Intake Total 550 Balance 550 - Medications Medications: Current Medications Albuterol/Ipratropium (Duoneb 3 Mg/0.5 Mg (3 Ml) Ud) 3 ml INH RQ6 [facility] Last Admin: 02/05/18 19:10 Dose: 3 ml Enoxaparin Sodium (Lovenox) 40 mg SC DAILY [facility] Last Admin: 02/05/18 10:21 Dose: 40 mg Guaifenesin (Robitussin) 200 mg PO Q4H PRN PRN Reason: Cough and congestion Last Admin: 02/05/18 21:05 Dose: 200 mg Trimethoprim/Sulfamethoxazole (160 mg/ Dextrose) 250 mls @ 250 mls/hr IVPB Q12H [facility]; Protocol Last Admin: 02/05/18 11:46 Dose: 250 mls/hr Piperacillin Sod/Tazobactam Sod (Zosyn 3.375 Gm Iv Premix) 3.375 gm in 50 mls @ 100 mls/hr IVPB Q6H [facility]; Protocol Last Admin: 02/05/18 21:00 Dose: 100 mls/hr Influenza Virus Vaccine (Fluzone Quad [id number]) 60 mcg IM .ONCE ONE Stop: 02/06/18 11:01 Methadone HCl (Methadose) 40 mg PO DAILY [facility] Last Admin: 02/05/18 10:21 Dose: 40 mg Methadone HCl (Methadone) 30 mg PO DAILY [facility] Last Admin: 02/05/18 10:21 Dose: 30 mg Methylprednisolone (Solu-Medrol) 60 mg IV Q12 [facility] Last Admin: 02/05/18 21:08 Dose: 60 mg Quetiapine Fumarate (Seroquel) 100 mg PO HS [facility] Last Admin: 02/05/18 21:00 Dose: 100 mg Tiotropium [place] (Spiriva) 18 mcg INH RQ24 [facility] Last Admin: 02/05/18 08:00 Dose: 18 mcg - Labs Labs: 02/03/18 18:27 02/03/18 18:27 PT 13.1 SECONDS (9.7-12.2) H 02/03/18 18:27 INR 1.2 02/03/18 18:27 APTT 33 SECONDS (21-34) 02/03/18 18:27
--- NOTE | 2018-02-05 23:17 | PN ---
DATE: 02/05/2018 SUBJECTIVE: The patient is feeling weak. She is coughing. She is congested. She is afebrile. She feels better. She is on methadone. She is bradycardic, most likely due to methadone. The patient's cardiac enzymes x2 are negative. Right now, she is not hypoxic. PHYSICAL EXAMINATION: VITAL SIGNS: Blood pressure 99/66, pulse 90, respiratory rate 20, temperature 97.9. LUNGS: Bilateral inspiratory and expiratory rhonchi. Decreased air entry. CARDIOVASCULAR SYSTEM: S1 and S2 are regular. ABDOMEN: Soft. ASSESSMENT: 1. Pneumonia, right lower lobe in a patient with immunodepression, substance abuse, rule out versus gram negative. 2. Chronic obstructive pulmonary disease/asthma. 3. Acquired immunodeficiency syndrome. PLAN: Medical management. Antibiotics. Monitor the patient. Fabien Arthur MD
[2018-02-06] MEDS: Albuterol-Ipratrop 3 mg / 0.5 (3 ml) UD INH SCH ×4 (01:20→19:03)
[2018-02-06] MEDS: Piperacill/Tazo 3.375gm in Dex 3.375 GM/50 ML BAG IVPB SCH ×4 (02:34→20:48)
[2018-02-06] MEDS: Tiotropium 18 mcg Cap For Inhalation INH SCH (07:30)
[2018-02-06] MEDS: Methadone 40 mg Tab PO SCH (09:15)
[2018-02-06] MEDS: Enoxaparin 40 mg Syringe SC SCH (09:16)
--- NOTE | 2018-02-06 09:51 | CT ---
Date of service: 02/05/2018 PROCEDURE: CT Chest without contrast HISTORY: pneumonia COMPARISON: Comparison made with chest radiograph 02/03/[address] scan chest dated 03/12/2016.. TECHNIQUE: Contiguous axial images were obtained through the chest without intravenous contrast enhancement. Sagittal and coronal reconstructions were performed. Radiation dose: Total exam DLP = 162.01 mGy-cm. This CT exam was performed using one or more of the following dose reduction techniques: Automated exposure control, adjustment of the mA and/or kV according to patient size, and/or use of iterative reconstruction technique. FINDINGS: LUNGS: Redemonstrated are centrilobular emphysematous changes upper lobe predominance. Small bleb changes are seen in the lung apices right greater than left. There scattered areas of ground-glass opacities/infiltrates predominantly within the upper lobes as well; rule out inflammatory/infectious etiology.. There also a more discrete elliptical shaped consolidation focus in the right posterolateral sulcus. There also appears to be some minimal compressive type atelectasis left posterior sulcus . Scattered areas of minor chronic scarring and what appears represent minimal early bronchiectasis noted in the anterior upper lobe with similar smaller focal areas seen in the posterior inferior upper lobe and left upper lobe.. MEDIASTINUM: Heart size is within range of normal. No significant pericardial effusion. Ascending thoracic aorta measures approximately 3.1 cm and descending thoracic aorta measures approximately 2.3 cm. No significant aortic atherosclerotic calcification. Pulmonary trunk measures approximately 2.7 cm. There are multiple small nonspecific mediastinal lymph nodes present. Evaluation for hilar adenopathy is limited due to the lack of circulating intravenous contrast material. Small hiatal hernia is felt to be present with small amount of fluid in the distal esophagus possibly due to reflux. PLEURA: No pleural fluid. No pneumothorax. BONES: Minor multilevel degenerative spondylosis of the thoracic spine. There are no acute compression fractures no retropulsed fragments. Vertebral bodies exhibit normal stature. Vertebral bodies and facets normally aligned. UPPER ABDOMEN: Incompletely visualized gallbladder appears distended. Additionally, there also appears to be central intrahepatic biliary ductal dilatation. Follow-up MRCP suggested. Note also again made of and approximately 14 mm rounded low-attenuation focus posterior superior aspect right lobe liver with Hounsfield units in the low double digits consistent with cyst.. Another small hepatic cyst left lobe liver less well seen on this study compared to prior contrast enhanced CT scan. OTHER FINDINGS: None. IMPRESSION: There are centrilobular emphysematous changes upper lobe predominance with small blebs both lung apices right greater than left. Localized area of elliptical shaped consolidation right posterolateral sulcus of the lung. There are scattered areas of ground-glass opacities in the upper lung [place]; rule out infectious and or inflammatory etiologies. Scattered bilateral areas of chronic appearing scarring and suspected minimal early bronchiectasis bilaterally Redemonstrated is a small hepatic cyst posterior superior aspect right lobe liver. Incompletely visualized distended gallbladder. Suspect mild central intrahepatic biliary ductal dilatation. Recommend follow-up MRCP. Note that this report was placed in PA review folder for follow up
[2018-02-06] MEDS: Sulfamethoxazole/Trimethoprim 160 MG in Dextrose 5% In Water 250 ML IVPB SCH ×2 (10:54→22:44)
[2018-02-06] MEDS ORDERED: Influenza Vaccine 60 MCG/0.5 ML SYR (3 yr & up) IM ONE (11:00)
--- NOTE | 2018-02-06 12:51 | CP.PCM.PN ---
Subjective - Date & Time of Evaluation Date of Evaluation: 02/06/18 Time of Evaluation: 08:45 - Subjective Subjective: Patient seen and examined at bedside. Patient eating breakfast. Afebrile and in no acute distress. States she is feeling much better, and her symptoms are improving. Continue antibiotics. Chest CT 02/05 - There are centrilobular emphysematous changes in upper lobe predominance with small blebs both lung apices R>L. Localized area of elliptical shaped consolidation in right posterolateral sulcus of the lung. Scattered areas of ground-glass opacities in the upper lung [place]; rule out infectious or inflammatory etiologies. Scattered bilateral areas of chronic appearing scarring and suspected minimal early bronchiectasis bilaterally. Small hepatic cyst in posterior superior aspect of right lobe of liver. Incompletely visualized distended gallbladder. Suspect mild central intrahepatic biliary ductal dilatation. Recommend follow-up MRCP. Objective - Vital Signs/Intake and Output Vital Signs (last 24 hours): Temp Pulse Resp BP Pulse Ox 98.8 F 69 18 125/78 96 02/06/18 07:00 02/06/18 11:30 02/06/18 07:00 02/06/18 07:00 02/06/18 07:00 Intake and Output: 02/06/18 02/06/18 06:59 18:59 Intake Total 170 Balance 170 - Medications Medications: Current Medications Albuterol/Ipratropium (Duoneb 3 Mg/0.5 Mg (3 Ml) Ud) 3 ml INH RQ6 [facility] Last Admin: 02/06/18 07:30 Dose: 3 ml Enoxaparin Sodium (Lovenox) 40 mg SC DAILY [facility] Last Admin: 02/06/18 09:16 Dose: 40 mg Guaifenesin (Robitussin) 200 mg PO Q4H PRN PRN Reason: Cough and congestion Last Admin: 02/05/18 21:05 Dose: 200 mg Trimethoprim/Sulfamethoxazole (160 mg/ Dextrose) 250 mls @ 250 mls/hr IVPB Q12H [facility]; Protocol Last Admin: 02/06/18 10:54 Dose: 250 mls/hr Piperacillin Sod/Tazobactam Sod (Zosyn 3.375 Gm Iv Premix) 3.375 gm in 50 mls @ 100 mls/hr IVPB Q6H [facility]; Protocol Last Admin: 02/06/18 08:33 Dose: 100 mls/hr Methadone HCl (Methadose) 40 mg PO DAILY [facility] Last Admin: 02/06/18 09:15 Dose: 40 mg Methadone HCl (Methadone) 30 mg PO DAILY [facility] Last Admin: 02/06/18 09:15 Dose: 30 mg Methylprednisolone (Solu-Medrol) 60 mg IV Q12 [facility] Last Admin: 02/06/18 09:16 Dose: 60 mg Quetiapine Fumarate (Seroquel) 100 mg PO HS [facility] Last Admin: 02/05/18 21:00 Dose: 100 mg Tiotropium [place] (Spiriva) 18 mcg INH RQ24 [facility] Last Admin: 02/06/18 07:30 Dose: 18 mcg - Labs Labs: 02/03/18 18:27 02/03/18 18:27 PT 13.1 SECONDS (9.7-12.2) H 02/03/18 18:27 INR 1.2 02/03/18 18:27 APTT 33 SECONDS (21-34) 02/03/18 18:27 Assessment and Plan (1) Pneumonia Status: Acute (2) COPD (chronic obstructive pulmonary disease) Status: Acute
--- NOTE | 2018-02-06 19:51 | CP.PCM.PN ---
Subjective - Date & Time of Evaluation Date of Evaluation: 02/06/18 Time of Evaluation: 07:00 - Subjective Subjective: restarted HAART rx truvada/Tivacay Objective - Vital Signs/Intake and Output Vital Signs (last 24 hours): Temp Pulse Resp BP Pulse Ox 98.3 F 79 20 118/67 96 02/06/18 15:00 02/06/18 16:28 02/06/18 15:00 02/06/18 15:00 02/06/18 15:00 - Medications Medications: Current Medications Albuterol/Ipratropium (Duoneb 3 Mg/0.5 Mg (3 Ml) Ud) 3 ml INH RQ6 [facility] Last Admin: 02/06/18 19:03 Dose: 3 ml Emtricitabine/Tenofovir (Truvada 200 Mg-300 Mg) 1 tab PO Q24H [facility]; Protocol Enoxaparin Sodium (Lovenox) 40 mg SC DAILY [facility] Last Admin: 02/06/18 09:16 Dose: 40 mg Guaifenesin (Robitussin) 200 mg PO Q4H PRN PRN Reason: Cough and congestion Last Admin: 02/05/18 21:05 Dose: 200 mg Trimethoprim/Sulfamethoxazole (160 mg/ Dextrose) 250 mls @ 250 mls/hr IVPB Q12H [facility]; Protocol Last Admin: 02/06/18 10:54 Dose: 250 mls/hr Piperacillin Sod/Tazobactam Sod (Zosyn 3.375 Gm Iv Premix) 3.375 gm in 50 mls @ 100 mls/hr IVPB Q6H [facility]; Protocol Last Admin: 02/06/18 14:50 Dose: 100 mls/hr Methadone HCl (Methadose) 40 mg PO DAILY [facility] Last Admin: 02/06/18 09:15 Dose: 40 mg Methadone HCl (Methadone) 30 mg PO DAILY [facility] Last Admin: 02/06/18 09:15 Dose: 30 mg Methylprednisolone (Solu-Medrol) 60 mg IV Q12 [facility] Last Admin: 02/06/18 09:16 Dose: 60 mg Quetiapine Fumarate (Seroquel) 100 mg PO HS [facility] Last Admin: 02/05/18 21:00 Dose: 100 mg Tiotropium [place] (Spiriva) 18 mcg INH RQ24 [facility] Last Admin: 02/06/18 07:30 Dose: 18 mcg - Labs Labs: 02/03/18 18:27 18 18:27 PT 13.1 SECONDS (9.7-12.2) H 02/03/18 18:27 INR 1.2 02/03/18 18:27 APTT 33 SECONDS (21-34) 02/03/18 18:27 Assessment and Plan (1) COPD (chronic obstructive pulmonary disease) Status: Acute (2) Pneumonia Status: Acute (3) Bronchitis Status: Acute
[2018-02-06] MEDS: Emtricitabine-Tenofovir 200 mg-300 mg Tab PO SCH (20:58)
[2018-02-07] MEDS: Piperacill/Tazo 3.375gm in Dex 3.375 GM/50 ML BAG IVPB SCH ×4 (03:21→22:19)
[2018-02-07] MEDS: guaiFENesin 200 mg/10 ml Syrup UD PO PRN (03:28)
--- NOTE | 2018-02-07 03:32 | CP.PCM.PN ---
Subjective - Date & Time of Evaluation Date of Evaluation: 02/06/18 - Subjective Subjective: dictated Objective - Vital Signs/Intake and Output Vital Signs (last 24 hours): Temp Pulse Resp BP Pulse Ox 98.4 F 68 20 150/83 99 02/06/18 23:10 02/06/18 23:10 02/06/18 23:10 02/06/18 23:10 02/06/18 23:10 - Medications Medications: Current Medications Albuterol/Ipratropium (Duoneb 3 Mg/0.5 Mg (3 Ml) Ud) 3 ml INH RQ6 [facility] Last Admin: 02/06/18 19:03 Dose: 3 ml Dolutegravir Sodium (Tivicay) 50 mg PO Q24H [facility]; Protocol Last Admin: 02/06/18 20:58 Dose: 50 mg Emtricitabine/Tenofovir (Truvada 200 Mg-300 Mg) 1 tab PO Q24H [facility]; Protocol Last Admin: 02/06/18 20:58 Dose: 1 tab Enoxaparin Sodium (Lovenox) 40 mg SC DAILY [facility] Last Admin: 02/06/18 09:16 Dose: 40 mg Guaifenesin (Robitussin) 200 mg PO Q4H PRN PRN Reason: Cough and congestion Last Admin: 02/07/18 03:28 Dose: 200 mg Piperacillin Sod/Tazobactam Sod (Zosyn 3.375 Gm Iv Premix) 3.375 gm in 50 mls @ 100 mls/hr IVPB Q6H [facility]; Protocol Last Admin: 02/07/18 03:21 Dose: 100 mls/hr Methadone HCl (Methadose) 40 mg PO DAILY [facility] Last Admin: 02/06/18 09:15 Dose: 40 mg Methadone HCl (Methadone) 30 mg PO DAILY [facility] Last Admin: 02/06/18 09:15 Dose: 30 mg Methylprednisolone (Solu-Medrol) 60 mg IV Q12 [facility] Last Admin: 02/06/18 21:05 Dose: 60 mg Quetiapine Fumarate (Seroquel) 100 mg PO HS [facility] Last Admin: 02/06/18 21:02 Dose: 100 mg Tiotropium [place] (Spiriva) 18 mcg INH RQ24 [facility] Last Admin: 02/06/18 07:30 Dose: 18 mcg - Labs Labs: 02/03/18 18:27 02/03/18 18:27 PT 13.1 SECONDS (9.7-12.2) H 02/03/18 18: INR 1.2 02/03/18 18: APTT 33 SECONDS (21-34) 02/03/18 18:27
[2018-02-07 06:46] LABS: MEAN CELL VOLUME 94.5 fL (81.0-99.0); MEAN CORPUSCULAR HEMOGLOBIN 32.1 pg (27.0-31.0); MEAN PLATELET VOLUME 9.8 fL (7.2-11.7); RBC 3.74 Mil/uL (3.80-5.20); RED CELL DISTRIBUTION WIDTH 14.9 % (11.5-14.5); WHITE BLOOD COUNT 12.6 K/uL (4.8-10.8)
[2018-02-07 07:07] LABS: BLOOD UREA NITROGEN 17 mg/dL (7-17); CALCIUM 8.9 mg/dl (8.6-10.4); GFR NON-AFRICAN AMERICAN > 60
[2018-02-07] MEDS: Albuterol-Ipratrop 3 mg / 0.5 (3 ml) UD INH SCH ×3 (08:00→19:19)
[2018-02-07] MEDS: Tiotropium 18 mcg Cap For Inhalation INH SCH (08:20)
[2018-02-07] MEDS: Methadone 40 mg Tab PO SCH (09:27)
[2018-02-07] MEDS: Enoxaparin 40 mg Syringe SC SCH (09:31)
--- NOTE | 2018-02-07 09:36 | CP.PCM.CON ---
History of Present Illness - History of Present Illness History of Present Illness: Reason for consult: Chest Pain Patient is a 57 y/o female with PMHx of asthma, COPD, AIDS, and depression, who presented to the ED on 02/03/18 with complaint of fever (102.8F in ED), body aches, cough with white phlegm, and shortness of breath. She states she has been having these symptoms for about a week. Patient has been recently admitted (01/15-01/19) for asthma exacerbation. On admission, her CXR revealed right lower lobe infiltrate, likely pneumonia. Currently, she complains of cough with white phlegm. Denies fever, chills, body aches, shortness of breath, chest pain, and leg swelling/pain. PMHx: asthma, COPD, AIDS, depression PSHx: denies Allerg: denies, NKDA FHx: denies Meds: Seroquel, Methadone 70mg, Symbicort, Ambien, Minipress Social: 3 cigarettes/day from 1/2ppd for +20 yrs; occasional alcohol use; history of Percocet abuse, recently switched to 70mg methadone in methadone clinic. -CXR (02/03): right lower lobe infiltrate, obscuration of right hemidiaphragm Review of Systems - Review of Systems All systems: reviewed and no additional remarkable complaints except (cough and shortness of breath) Physical Exam - Head Exam Head Exam: ATRAUMATIC, NORMOCEPHALIC - ENT Exam ENT Exam: Mucous Membranes Moist - Neck Exam Neck exam: Positive for: Normal Inspection - Respiratory Exam Respiratory Exam: Rales, Rhonchi - Cardiovascular Exam Cardiovascular Exam: REGULAR RHYTHM - GI/Abdominal Exam GI & Abdominal Exam: Normal Bowel Sounds, Soft - Extremities Exam Extremities exam: Positive for: normal inspection Assessment & Plan (1) Chest Pain Status: Acute Trops normal ECHO: Normal EF Abnormal EKG Stress test Friday (2) Pneumonia Status: Acute Comment: continue antibiotics. Steroids. Nebulizer treatment (3) COPD (chronic obstructive pulmonary disease) Status: Acute Past Patient History - Infectious Disease Hx of Infectious Diseases: None - Past Medical History & Family History Past Medical History?: Yes - Past Social History Smoking Status: Light Smoker < 10 Cigarettes Daily - CARDIAC Hx Cardiac Disorders: No - PULMONARY Hx Asthma: Yes Hx Chronic Obstructive Pulmonary Disease (COPD): Yes - NEUROLOGICAL Other/Comment: "Hole in the Back Of Left Eye. Left Eye impaired. - HEENT Hx HEENT Problems: Yes Other/Comment: Left eye blind - RENAL Hx Chronic Kidney Disease: No - ENDOCRINE/METABOLIC Hx Endocrine Disorders: No - HEMATOLOGICAL/ONCOLOGICAL Hx Human Immunodeficiency Virus (HIV): Yes - INTEGUMENTARY Hx Dermatological Problems: No - MUSCULOSKELETAL/RHEUMATOLOGICAL Hx Falls: No - GASTROINTESTINAL Hx Gastrointestinal Disorders: No - GENITOURINARY/GYNECOLOGICAL Hx Genitourinary Disorders: No - PSYCHIATRIC Hx Substance Use: Yes - SURGICAL HISTORY Hx Surgeries: No - ANESTHESIA Hx Anesthesia: No Has any member of the family had a problem w/ anesthesia?: No Meds Allergies/Adverse Reactions: Allergies Allergy/AdvReac Type Severity Reaction Status Date / Time No Known Allergies Allergy Verified 02/03/18 19:25 - Medications Medications: Current Medications Albuterol/Ipratropium (Duoneb 3 Mg/0.5 Mg (3 Ml) Ud) 3 ml INH RQ6 [facility] Last Admin: 02/06/18 19:03 Dose: 3 ml Dolutegravir Sodium (Tivicay) 50 mg PO Q24H [facility]; Protocol Last Admin: 02/06/18 20:58 Dose: 50 mg Emtricitabine/Tenofovir (Truvada 200 Mg-300 Mg) 1 tab PO Q24H [facility]; Protocol Last Admin: 02/06/18 20:58 Dose: 1 tab Enoxaparin Sodium (Lovenox) 40 mg SC DAILY [facility] Last Admin: 02/07/18 09:31 Dose: 40 mg Guaifenesin (Robitussin) 200 mg PO Q4H PRN PRN Reason: Cough and congestion Last Admin: 02/07/18 03:28 Dose: 200 mg Piperacillin Sod/Tazobactam Sod (Zosyn 3.375 Gm Iv Premix) 3.375 gm in 50 mls @ 100 mls/hr IVPB Q6H [facility]; Protocol Last Admin: 02/07/18 09:18 Dose: 100 mls/hr Methadone HCl (Methadose) 40 mg PO DAILY [facility] Last Admin: 02/07/18 09:27 Dose: 40 mg Methadone HCl (Methadone) 30 mg PO DAILY [facility] Last Admin: 02/07/18 09:25 Dose: 30 mg Methylprednisolone (Solu-Medrol) 60 mg IV Q12 [facility] Last Admin: 02/07/18 09:18 Dose: 60 mg Quetiapine Fumarate (Seroquel) 100 mg PO HS [facility] Last Admin: 02/06/18 21:02 Dose: 100 mg Tiotropium [place] (Spiriva) 18 mcg INH RQ24 [facility] Last Admin: 02/06/18 07:30 Dose: 18 mcg Results - Vital Signs Recent Vital Signs: Last Vital Signs Temp 97.6 F 02/07/18 07:00 Pulse 61 02/07/18 07:00 Resp 20 02/07/18 07:00 BP 164/97 H 02/07/18 07:00 Pulse Ox 97 02/07/18 07:00 - Labs Result Diagrams: 02/07/18 06:35 02/07/18 06:35 Labs: Laboratory Results - last 24 hr 02/04/18 02/07/18 02/07/18 19:58 06:35 06:35 WBC 12.6 H D RBC 3.74 L Hgb 12.0 Hct 35.3 MCV 94.5 MCH 32.1 H MCHC 34.0 RDW 14.9 H Plt Count 151 MPV 9.8 Sodium 137 Potassium 4.8 Chloride 108 H Carbon Dioxide 24 Anion Gap 11 BUN 17 Creatinine 0.8 Est GFR ( Amer) > 60 Est GFR (Non-Af Amer) > 60 Random Glucose 137 H Calcium 8.9 HIV-1 RNA copies/mL <20 not detected HIV-1 RNA logcopies/mL <1.30 not detected HIV-1 Genotyping
[2018-02-07 10:39] LABS: % CD4 (T HELPER CELL) 29 Percent (30-61); % CD8 (SUPPRESSOR T CELL) 37 Percent (12-42); ABSOLUTE CD4 CELLS 312 Cells/mcL (490-1740); ABSOLUTE CD8 CELLS 402 Cells/mcL (180-1170); ABSOLUTE LYMPHOCYTES 1079 Cells/mcL (850-3900); HELPER/SUPPRESSOR RATIO 0.78 Ratio (0.86-5.00)
--- NOTE | 2018-02-07 18:16 | CP.PCM.PN ---
Subjective - Date & Time of Evaluation Date of Evaluation: 02/07/18 Time of Evaluation: 16:25 - Subjective Subjective: patient seen and examined Patient states to feel much better Much less cough Afebrile No chest pain Objective - Vital Signs/Intake and Output Vital Signs (last 24 hours): Temp Pulse Resp BP Pulse Ox 98.2 F 90 20 112/75 96 02/07/18 15:55 02/07/18 15:55 02/07/18 15:55 02/07/18 15:55 02/07/18 15:55 Intake and Output: 02/07/18 02/07/18 06:59 18:59 Intake Total 170 Balance 170 - Medications Medications: Current Medications Albuterol/Ipratropium (Duoneb 3 Mg/0.5 Mg (3 Ml) Ud) 3 ml INH RQ6 [facility] Last Admin: 02/07/18 13:00 Dose: 3 ml Dolutegravir Sodium (Tivicay) 50 mg PO Q24H [facility]; Protocol Last Admin: 02/06/18 20:58 Dose: 50 mg Emtricitabine/Tenofovir (Truvada 200 Mg-300 Mg) 1 tab PO Q24H [facility]; Protocol Last Admin: 02/06/18 20:58 Dose: 1 tab Enoxaparin Sodium (Lovenox) 40 mg SC DAILY [facility] Last Admin: 02/07/18 09:31 Dose: 40 mg Guaifenesin (Robitussin) 200 mg PO Q4H PRN PRN Reason: Cough and congestion Last Admin: 02/07/18 03:28 Dose: 200 mg Piperacillin Sod/Tazobactam Sod (Zosyn 3.375 Gm Iv Premix) 3.375 gm in 50 mls @ 100 mls/hr IVPB Q6H [facility]; Protocol Last Admin: 02/07/18 14:24 Dose: 100 mls/hr Methadone HCl (Methadose) 40 mg PO DAILY [facility] Last Admin: 02/07/18 09:27 Dose: 40 mg Methadone HCl (Methadone) 30 mg PO DAILY [facility] Last Admin: 02/07/18 09:25 Dose: 30 mg Methylprednisolone (Solu-Medrol) 60 mg IV Q12 [facility] Last Admin: 02/07/18 09:18 Dose: 60 mg Quetiapine Fumarate (Seroquel) 100 mg PO HS [facility] Last Admin: 02/06/18 21:02 Dose: 100 mg Tiotropium [place] (Spiriva) 18 mcg INH RQ24 [facility] Last Admin: 02/07/18 08:20 Dose: 18 mcg - Labs Labs: 02/07/18 06:35 02/07/18 06:35 PT 13.1 SECONDS (9.7-12.2) H 02/03/18 18:27 INR 1.2 02/03/18 18:27 APTT 33 SECONDS (21-34) 02/03/18 18:27 - Head Exam Head Exam: ATRAUMATIC, NORMOCEPHALIC - ENT Exam ENT Exam: Mucous Membranes Moist - Neck Exam Neck Exam: Normal Inspection - Respiratory Exam Respiratory Exam: Decreased Breath Sounds - Cardiovascular Exam Cardiovascular Exam: REGULAR RHYTHM - GI/Abdominal Exam GI & Abdominal Exam: Soft, Normal Bowel Sounds - Extremities Exam Extremities Exam: Normal Inspection - Neurological Exam Neurological Exam: Alert, Oriented x3 Assessment and Plan (1) Pneumonia Assessment & Plan: continue IV antibiotics Followup chest x-ray Clinically improving Status: Acute (2) COPD (chronic obstructive pulmonary disease) Status: Acute
[2018-02-07] MEDS: Emtricitabine-Tenofovir 200 mg-300 mg Tab PO SCH (19:26)
--- NOTE | 2018-02-07 23:32 | CP.PCM.PN ---
Subjective - Subjective Subjective: dictated Objective - Vital Signs/Intake and Output Vital Signs (last 24 hours): Temp Pulse Resp BP Pulse Ox 98.2 F 90 20 112/75 96 02/07/18 15:55 02/07/18 15:55 02/07/18 15:55 02/07/18 15:55 02/07/18 15:55 Intake and Output: 02/07/1818 18:59 06:59 Intake Total 170 Balance 170 - Medications Medications: Current Medications Albuterol/Ipratropium (Duoneb 3 Mg/0.5 Mg (3 Ml) Ud) 3 ml INH RQ6 [facility] Last Admin: 02/07/18 19:19 Dose: 3 ml Dolutegravir Sodium (Tivicay) 50 mg PO Q24H [facility]; Protocol Last Admin: 02/07/18 19:26 Dose: 50 mg Emtricitabine/Tenofovir (Truvada 200 Mg-300 Mg) 1 tab PO Q24H [facility]; Protocol Last Admin: 02/07/18 19:26 Dose: 1 tab Enoxaparin Sodium (Lovenox) 40 mg SC DAILY [facility] Last Admin: 02/07/18 09:31 Dose: 40 mg Guaifenesin (Robitussin) 200 mg PO Q4H PRN PRN Reason: Cough and congestion Last Admin: 02/07/18 03:28 Dose: 200 mg Methadone HCl (Methadose) 40 mg PO DAILY [facility] Last Admin: 02/07/18 09:27 Dose: 40 mg Methadone HCl (Methadone) 30 mg PO DAILY [facility] Last Admin: 02/07/18 09:25 Dose: 30 mg Methylprednisolone (Solu-Medrol) 60 mg IV Q12 [facility] Last Admin: 02/07/18 22:18 Dose: 60 mg Quetiapine Fumarate (Seroquel) 100 mg PO HS [facility] Last Admin: 02/07/18 22:18 Dose: 100 mg Tiotropium [place] (Spiriva) 18 mcg INH RQ24 [facility] Last Admin: 02/07/18 08:20 Dose: 18 mcg - Labs Labs: 02/07/18 06:35 02/07/18 06:35 PT 13.1 SECONDS (9.7-12.2) H 02/03/18 18:27 INR 1.2 02/03/18 18:27 APTT 33 SECONDS (21-34) 02/03/18 18:27
[2018-02-08] MEDS: Albuterol-Ipratrop 3 mg / 0.5 (3 ml) UD INH SCH ×5 (01:11→20:50)
--- NOTE | 2018-02-08 04:29 | PN ---
DATE: 02/07/2018 SUBJECTIVE: Rosa Quevedo is feeling better, less cough, less shortness of breath, less wheezing. PHYSICAL EXAMINATION: VITAL SIGNS: BP 112/75, pulse 90, respiratory rate 20, temperature 98.2. LUNGS: Decreased air entry. Positive rales. Positive rhonchi. CARDIOVASCULAR SYSTEM: S1 and S2 are regular. ABDOMEN: Soft. ASSESSMENT: Right lower lobe pneumonia, chronic obstructive pulmonary disease, acquired immunodeficiency syndrome, and opiate dependence. PLAN: Medical management. Monitor the patient. Fabien Arthur MD
[2018-02-08] MEDS: Tiotropium 18 mcg Cap For Inhalation INH SCH (07:45)
[2018-02-08] MEDS: Enoxaparin 40 mg Syringe SC SCH (09:26)
[2018-02-08] MEDS: Methadone 40 mg Tab PO SCH (09:26)
--- NOTE | 2018-02-08 17:01 | CP.PCM.PN ---
Subjective - Date & Time of Evaluation Date of Evaluation: 02/08/18 Time of Evaluation: 08:00 - Subjective Subjective: improving awake alert still coughing less SOB Objective - Vital Signs/Intake and Output Vital Signs (last 24 hours): Temp Pulse Resp BP Pulse Ox 98 F 61 20 145/81 96 02/08/18 07:00 02/08/18 07:00 02/08/18 07:00 02/08/18 07:00 02/08/18 07:00 - Medications Medications: Current Medications Albuterol/Ipratropium (Duoneb 3 Mg/0.5 Mg (3 Ml) Ud) 3 ml INH RQ6 [facility] Last Admin: 02/08/18 13:15 Dose: 3 ml Dolutegravir Sodium (Tivicay) 50 mg PO Q24H [facility]; Protocol Last Admin: 02/07/18 19:26 Dose: 50 mg Emtricitabine/Tenofovir (Truvada 200 Mg-300 Mg) 1 tab PO Q24H [facility]; Protocol Last Admin: 02/07/18 19:26 Dose: 1 tab Enoxaparin Sodium (Lovenox) 40 mg SC DAILY [facility] Last Admin: 02/08/18 09:26 Dose: 40 mg Guaifenesin (Robitussin) 200 mg PO Q4H PRN PRN Reason: Cough and congestion Last Admin: 02/07/18 03:28 Dose: 200 mg Methadone HCl (Methadose) 40 mg PO DAILY [facility] Methadone HCl (Methadone) 30 mg PO DAILY [facility] Methylprednisolone (Solu-Medrol) 60 mg IV Q12 [facility] Last Admin: 02/08/18 09:26 Dose: 60 mg Quetiapine Fumarate (Seroquel) 100 mg PO HS [facility] Last Admin: 02/07/18 22:18 Dose: 100 mg Tiotropium [place] (Spiriva) 18 mcg INH RQ24 [facility] Last Admin: 02/08/18 07:45 Dose: 18 mcg - Labs Labs: 02/07/18 06:35 02/07/18 06:35 PT 13.1 SECONDS (9.7-12.2) H 02/03/18 18:27 INR 1.2 02/03/18 18:27 APTT 33 SECONDS (21-34) 02/03/18 18:27 - Constitutional Appears: Non-toxic, Chronically Ill - Head Exam Head Exam: NORMOCEPHALIC - Eye Exam Eye Exam: absent: Scleral icterus - ENT Exam ENT Exam: Mucous Membranes Dry - Neck Exam Neck Exam: absent: Lymphadenopathy - Respiratory Exam Respiratory Exam: Decreased Breath Sounds - Cardiovascular Exam Cardiovascular Exam: REGULAR RHYTHM - GI/Abdominal Exam GI & Abdominal Exam: Soft. absent: Tenderness - Rectal Exam Rectal Exam: Deferred - Exam Exam: NORMAL INSPECTION - Extremities Exam Extremities Exam: absent: Pedal Edema - Back Exam Back Exam: absent: CVA tenderness (L), CVA tenderness (R) Assessment and Plan (1) COPD (chronic obstructive pulmonary disease) Status: Acute (2) Pneumonia Status: Acute (3) Bronchitis Status: Acute (4) HIV (human immunodeficiency virus infection) Status: Acute - Assessment and Plan (Free Text) Assessment: cont hAART rx PCP less likely possible FOB/BAL
[2018-02-08] MEDS: Emtricitabine-Tenofovir 200 mg-300 mg Tab PO SCH (20:14)
--- NOTE | 2018-02-08 21:41 | CP.PCM.PN ---
Subjective - Date & Time of Evaluation Date of Evaluation: 02/07/18 Time of Evaluation: 17:15 - Subjective Subjective: Patient seen and evaluated Denies chest pain and dyspnea Review of Systems - Review of Systems All systems: reviewed and no additional remarkable complaints except (cough and shortness of breath) Physical Exam - Head Exam Head Exam: ATRAUMATIC, NORMOCEPHALIC - ENT Exam ENT Exam: Mucous Membranes Moist - Neck Exam Neck exam: Positive for: Normal Inspection - Respiratory Exam Respiratory Exam: Rales, Rhonchi - Cardiovascular Exam Cardiovascular Exam: REGULAR RHYTHM - GI/Abdominal Exam GI & Abdominal Exam: Normal Bowel Sounds, Soft - Extremities Exam Extremities exam: Positive for: normal inspection Assessment & Plan (1) Chest Pain Status: Acute [place] normal ECHO: Normal EF Abnormal EKG Stress test Friday (2) Pneumonia Status: Acute Comment: continue antibiotics. Steroids. Nebulizer treatment (3) COPD (chronic obstructive pulmonary disease) Status: Acute Objective - Vital Signs/Intake and Output Vital Signs (last 24 hours): Temp Pulse Resp BP Pulse Ox 97.5 F L 78 20 130/83 97 02/08/18 16:00 02/08/18 16:00 02/08/18 16:00 02/08/18 16:00 02/08/18 16:00 - Medications Medications: Current Medications Albuterol/Ipratropium (Duoneb 3 Mg/0.5 Mg (3 Ml) Ud) 3 ml INH RQ6 [facility] Last Admin: 02/08/18 20:50 Dose: 3 ml Dolutegravir Sodium (Tivicay) 50 mg PO Q24H [facility]; Protocol Last Admin: 02/08/18 20:14 Dose: 50 mg Emtricitabine/Tenofovir (Truvada 200 Mg-300 Mg) 1 tab PO Q24H [facility]; Protocol Last Admin: 02/08/18 20:14 Dose: 1 tab Enoxaparin Sodium (Lovenox) 40 mg SC DAILY [facility] Last Admin: 02/08/18 09:26 Dose: 40 mg Guaifenesin (Robitussin) 200 mg PO Q4H PRN PRN Reason: Cough and congestion Last Admin: 02/07/18 03:28 Dose: 200 mg Methadone HCl (Methadose) 40 mg PO DAILY [facility] Methadone HCl (Methadone) 30 mg PO DAILY [facility] Methylprednisolone (Solu-Medrol) 60 mg IV Q12 [facility] Last Admin: 02/08/18 21:06 Dose: 60 mg Quetiapine Fumarate (Seroquel) 100 mg PO HS [facility] Last Admin: 02/08/18 21:05 Dose: 100 mg Tiotropium [place] (Spiriva) 18 mcg INH RQ24 [facility] Last Admin: 02/08/18 07:45 Dose: 18 mcg - Labs Labs: 02/07/18 06:35 02/07/18 06:35 PT 13.1 SECONDS (9.7-12.2) H 02/03/18 18:27 INR 1.2 02/03/18 18:27 APTT 33 SECONDS (21-34) 02/03/18 18:27
--- NOTE | 2018-02-08 21:41 | CP.PCM.PN ---
Subjective - Date & Time of Evaluation Date of Evaluation: 02/08/18 Time of Evaluation: 06:25 - Subjective Subjective: Patient seen and evaluated Denies chest pain and dyspnea Review of Systems - Review of Systems All systems: reviewed and no additional remarkable complaints except (cough and shortness of breath) Physical Exam - Head Exam Head Exam: ATRAUMATIC, NORMOCEPHALIC - ENT Exam ENT Exam: Mucous Membranes Moist - Neck Exam Neck exam: Positive for: Normal Inspection - Respiratory Exam Respiratory Exam: Rales, Rhonchi - Cardiovascular Exam Cardiovascular Exam: REGULAR RHYTHM - GI/Abdominal Exam GI & Abdominal Exam: Normal Bowel Sounds, Soft - Extremities Exam Extremities exam: Positive for: normal inspection Assessment & Plan (1) Chest Pain Status: Acute [place] normal ECHO: Normal EF Abnormal EKG Stress test Friday (2) Pneumonia Status: Acute Comment: continue antibiotics. Steroids. Nebulizer treatment (3) COPD (chronic obstructive pulmonary disease) Status: Acute Objective - Vital Signs/Intake and Output Vital Signs (last 24 hours): Temp Pulse Resp BP Pulse Ox 97.5 F L 78 20 130/83 97 02/08/18 16:00 02/08/18 16:00 02/08/18 16:00 02/08/18 16:00 02/08/18 16:00 - Medications Medications: Current Medications Albuterol/Ipratropium (Duoneb 3 Mg/0.5 Mg (3 Ml) Ud) 3 ml INH RQ6 [facility] Last Admin: 02/08/18 20:50 Dose: 3 ml Dolutegravir Sodium (Tivicay) 50 mg PO Q24H [facility]; Protocol Last Admin: 02/08/18 20:14 Dose: 50 mg Emtricitabine/Tenofovir (Truvada 200 Mg-300 Mg) 1 tab PO Q24H [facility]; Protocol Last Admin: 02/08/18 20:14 Dose: 1 tab Enoxaparin Sodium (Lovenox) 40 mg SC DAILY [facility] Last Admin: 02/08/18 09:26 Dose: 40 mg Guaifenesin (Robitussin) 200 mg PO Q4H PRN PRN Reason: Cough and congestion Last Admin: 02/07/18 03:28 Dose: 200 mg Methadone HCl (Methadose) 40 mg PO DAILY [facility] Methadone HCl (Methadone) 30 mg PO DAILY [facility] Methylprednisolone (Solu-Medrol) 60 mg IV Q12 [facility] Last Admin: 02/08/18 21:06 Dose: 60 mg Quetiapine Fumarate (Seroquel) 100 mg PO HS [facility] Last Admin: 02/08/18 21:05 Dose: 100 mg Tiotropium [place] (Spiriva) 18 mcg INH RQ24 [facility] Last Admin: 02/08/18 07:45 Dose: 18 mcg - Labs Labs: 02/07/18 06:35 02/07/18 06:35 PT 13.1 SECONDS (9.7-12.2) H 02/03/18 18:27 INR 1.2 02/03/18 18:27 APTT 33 SECONDS (21-34) 02/03/18 18:27
--- NOTE | 2018-02-08 22:28 | CP.PCM.PN ---
Subjective - Subjective Subjective: dictaedq Objective - Vital Signs/Intake and Output Vital Signs (last 24 hours): Temp Pulse Resp BP Pulse Ox 97.5 F L 78 20 130/83 97 02/08/18 16:00 02/08/18 16:00 02/08/18 16:00 02/08/18 16:00 02/08/18 16:00 Intake and Output: 02/08/18 02/09/18 18:59 06:59 Intake Total 300 Balance 300 - Medications Medications: Current Medications Albuterol/Ipratropium (Duoneb 3 Mg/0.5 Mg (3 Ml) Ud) 3 ml INH RQ6 [facility] Last Admin: 02/08/18 20:50 Dose: 3 ml Dolutegravir Sodium (Tivicay) 50 mg PO Q24H [facility]; Protocol Last Admin: 02/08/18 20:14 Dose: 50 mg Emtricitabine/Tenofovir (Truvada 200 Mg-300 Mg) 1 tab PO Q24H [facility]; Protocol Last Admin: 02/08/18 20:14 Dose: 1 tab Enoxaparin Sodium (Lovenox) 40 mg SC DAILY [facility] Last Admin: 02/08/18 09:26 Dose: 40 mg Guaifenesin (Robitussin) 200 mg PO Q4H PRN PRN Reason: Cough and congestion Last Admin: 02/07/18 03:28 Dose: 200 mg Methadone HCl (Methadose) 40 mg PO DAILY [facility] Methadone HCl (Methadone) 30 mg PO DAILY [facility] Methylprednisolone (Solu-Medrol) 60 mg IV Q12 [facility] Last Admin: 02/08/18 21:06 Dose: 60 mg Quetiapine Fumarate (Seroquel) 100 mg PO HS [facility] Last Admin: 02/08/18 21:05 Dose: 100 mg Tiotropium [place] (Spiriva) 18 mcg INH RQ24 [facility] Last Admin: 02/08/18 07:45 Dose: 18 mcg - Labs Labs: 02/07/18 06:35 02/07/18 06:35 PT 13.1 SECONDS (9.7-12.2) H 02/03/18 18:27 INR 1.2 02/03/18 18:27 APTT 33 SECONDS (21-34) 02/03/18 18:27
[2018-02-09] MEDS: Albuterol-Ipratrop 3 mg / 0.5 (3 ml) UD INH SCH ×2 (01:10→13:35)
[2018-02-09 03:35] VITALS: O2SAT 96
--- NOTE | 2018-02-09 04:51 | PN ---
DATE: 02/09/2018 SUBJECTIVE: Rosa Quevedo is afebrile. Less short of breath. PHYSICAL EXAMINATION: VITAL SIGNS: BP 130/83, pulse 78, respiratory rate 20, and temperature 97.5. LUNGS: Decreased air entry. CARDIOVASCULAR SYSTEM: S1 and S2 regular. ABDOMEN: Soft. ASSESSMENT: 1. Pneumonia. 2. Chronic obstructive pulmonary disease. 3. Acquired immunodeficiency syndrome. PLAN: Continue current medication. Monitor the patient. Fabien Arthur MD
[2018-02-09] MEDS ORDERED: Caffeine Citrated **INJ** 20 MG/ML IV ONE (07:56)
[2018-02-09 08:15] VITALS: BP 126/78; PULSE 78; RESP 20; TEMP 98.2
[2018-02-09] MEDS: Tiotropium 18 mcg Cap For Inhalation INH SCH (08:48)
[2018-02-09] MEDS ORDERED: Methadone 40 mg Tab PO SCH (10:00)
[2018-02-09] MEDS: Enoxaparin 40 mg Syringe SC SCH (10:48)
--- NOTE | 2018-02-09 11:44 | CP.PCM.PN ---
Subjective - Date & Time of Evaluation Date of Evaluation: 02/09/18 Time of Evaluation: 09:00 - Subjective Subjective: tolerating IV rx Objective - Vital Signs/Intake and Output Vital Signs (last 24 hours): Temp Pulse Resp BP Pulse Ox 98.2 F 78 20 126/78 96 02/09/18 07:00 02/09/18 07:00 02/09/18 07:00 02/09/18 07:00 02/09/18 07:00 Intake and Output: 02/09/18 02/09/18 06:59 18:59 Intake Total 300 Balance 300 - Medications Medications: Current Medications Dolutegravir Sodium (Tivicay) 50 mg PO Q24H [facility]; Protocol Last Admin: 02/08/18 20:14 Dose: 50 mg Emtricitabine/Tenofovir (Truvada 200 Mg-300 Mg) 1 tab PO Q24H [facility]; Protocol Last Admin: 02/08/18 20:14 Dose: 1 tab Enoxaparin Sodium (Lovenox) 40 mg SC DAILY [facility] Last Admin: 02/09/18 10:48 Dose: 40 mg Guaifenesin (Robitussin) 200 mg PO Q4H PRN PRN Reason: Cough and congestion Last Admin: 02/07/18 03:28 Dose: 200 mg Methadone HCl (Methadose) 40 mg PO DAILY [facility] Last Admin: 02/09/18 10:46 Dose: 40 mg Methadone HCl (Methadone) 30 mg PO DAILY [facility] Last Admin: 02/09/18 10:46 Dose: 30 mg Methylprednisolone (Solu-Medrol) 60 mg IV Q12 [facility] Last Admin: 02/09/18 10:47 Dose: 60 mg Quetiapine Fumarate (Seroquel) 100 mg PO HS [facility] Last Admin: 02/08/18 21:05 Dose: 100 mg Tiotropium [place] (Spiriva) 18 mcg INH RQ24 [facility] Last Admin: 02/09/18 08:48 Dose: Not Given - Labs Labs: 02/07/18 06:35 02/07/18 06:35 PT 13.1 SECONDS (9.7-12.2) H 02/03/18 18:27 INR 1.2 02/03/18 18:27 APTT 33 SECONDS (21-34) 02/03/18 18:27 - Constitutional Appears: Non-toxic, Chronically Ill - Head Exam Head Exam: NORMOCEPHALIC - Eye Exam Eye Exam: absent: Scleral icterus - ENT Exam ENT Exam: Mucous Membranes Dry - Neck Exam Neck Exam: absent: Lymphadenopathy - Respiratory Exam Respiratory Exam: Decreased Breath Sounds, Rhonchi - Cardiovascular Exam Cardiovascular Exam: REGULAR RHYTHM, +S1, +S2 - GI/Abdominal Exam GI & Abdominal Exam: Distended, Soft - Rectal Exam Rectal Exam: Deferred - Exam Exam: NORMAL INSPECTION Assessment and Plan (1) COPD (chronic obstructive pulmonary disease) Status: Acute (2) Pneumonia Status: Acute (3) Bronchitis Status: Acute (4) HIV (human immunodeficiency virus infection) Status: Acute
--- NOTE | 2018-02-09 16:43 | CP.PCM.PN ---
Subjective - Date & Time of Evaluation Date of Evaluation: 02/09/18 Time of Evaluation: 11:00 - Subjective Subjective: ALERT AND ORIENTED X3, NO SOB OR WHEEZING, NAD. Objective - Vital Signs/Intake and Output Vital Signs (last 24 hours): Temp Pulse Resp BP Pulse Ox 98.2 F 78 20 126/78 96 02/09/18 07:00 02/09/18 07:00 02/09/18 07:00 02/09/18 07:00 02/09/18 07:00 Intake and Output: 02/09/18 02/09/18 06:59 18:59 Intake Total 300 Balance 300 - Labs Labs: 02/07/18 06:35 02/07/18 06:35 PT 13.1 SECONDS (9.7-12.2) H 02/03/18 18:27 INR 1.2 02/03/18 18:27 APTT 33 SECONDS (21-34) 02/03/18 18:27 Assessment and Plan - Assessment and Plan (Free Text) Assessment: 57 year old female admitted with pneumonia, seen and examined. Alert and orientedx3, denies acute cough or wheezing, no acute distress. Discussed with DR Arthur, plan to discharge home today. All meds prescriptions given. Advised to follow up with DR Tolentino and PMD in 1 week. Plan: Alert and orientedx3, no sob or wheezing, NAD.
--- NOTE | 2018-02-09 22:19 | CP.PCM.DIS ---
Provider - Provider Date of Admission: 02/03/18 20:22 Attending physician: Fabien Arthur MD Hospital Course - Lab Results Lab Results: Micro Results 02/03/18 19:04 Blood Blood Culture - Final NO GROWTH AFTER 5 DAYS 02/03/18 19:04 Blood Gram Stain - Final TEST NOT PERFORMED 02/03/18 18:20 Blood Blood Culture - Final NO GROWTH AFTER 5 DAYS 02/03/18 18:20 Blood Gram Stain - Final TEST NOT PERFORMED 02/04/18 16:49 Sputum Gram Stain - Final 02/04/18 16:49 Sputum Sputum Culture - Final NORMAL ORAL REMEDIOS Most Recent Lab Values WBC 12.6 K/uL (4.8-10.8) H D 02/07/18 06:35 RBC 3.74 Mil/uL (3.80-5.20) L 02/07/18 06:35 Hgb 12.0 g/dL (11.0-16.0) 02/07/18 06:35 Hct 35.3 % (34.0-47.0) 02/07/18 06:35 MCV 94.5 fL (81.0-99.0) 02/07/18 06:35 MCH 32.1 pg (27.0-31.0) H 02/07/18 06:35 MCHC 34.0 g/dL (33.0-37.0) 02/07/18 06:35 RDW 14.9 % (11.5-14.5) H 02/07/18 06:35 Plt Count 151 K/uL (130-400) 02/07/18 06:35 MPV 9.8 fL (7.2-11.7) 02/07/18 06:35 Neut % (Auto) 75.8 % (50.0-75.0) H 02/03/18 18:27 Lymph % (Auto) 15.2 % (20.0-40.0) L 02/03/18 18:27 [place] % (Auto) 8.8 % (0.0-10.0) 02/03/18 18:27 Eos % (Auto) 0.0 % (0.0-4.0) 02/03/18 18:27 Baso % (Auto) 0.2 % (0.0-2.0) 02/03/18 18:27 Neut # (Auto) 5.6 K/uL (1.8-7.0) 02/03/18 18: Lymph # (Auto) 1.1 K/uL (1.0-4.3) 02/03/18: [place] # (Auto) 0.7 K/uL (0.0-0.8) 02/03/18 18: Eos # (Auto) 0.0 K/uL (0.0-0.7) 02/03/18: Baso # (Auto) 0.0 K/uL (0.0-0.2) 02/03/18: PT 13.1 SECONDS (9.7-12.2) H 02/03/18: INR 1.2 02/03/18: APTT 33 SECONDS (21-34) 02/03/18 18 Puncture Site Rra 02/03/18 18: pCO2 32 mm/Hg (35-45) L 02/03/18 18: pO2 58 mm/Hg (80-100) L 02/03/18 18: HCO3 22.1 mmol/L (21-28) 02/03/18 18: ABG pH 7.41 (7.35-7.45) 02/03/18: ABG Total CO2 21.3 mmol/L (22-28) L 02/03/18 18: ABG O2 Saturation 92.1 % (95-98) L 02/03/18 18: ABG Base Excess -3.4 mmol/L (-2.0-3.0) L 02/03/18 18: Riley Test Pos 02/03/18 18: ABG Potassium 3.5 mmol/L (3.6-5.2) L 02/03/18 18: A-a O2 Difference 52.0 mm/Hg 02/03/18 18 Respiratory Index 0.9 02/03/18 18: Sodium 135.0 mmol/l (132-148) 02/03/18 18: Chloride 107.0 mmol/L (98-107) 02/03/18 18: Glucose 96 mg/dl (65-105) 02/03/18 18: Lactate 0.7 mmol/L (0.7-2.1) 02/03/18 18:25 FiO2 21.0 % 02/03/18 18:25 Sodium 137 mmol/L (132-148) 02/07/18 06:35 Potassium 4.8 mmol/L (3.6-5.2) 02/07/18 06:35 Chloride 108 mmol/L (98-107) H 02/07/18 06:35 Carbon Dioxide 24 mmol/L (22-30) 02/07/18 06:35 Anion Gap 11 (10-20) 02/07/18 06:35 BUN 17 mg/dL (7-17) 02/07/18 06:35 Creatinine 0.8 mg/dL (0.7-1.2) 02/07/18 06:35 Est GFR ( Amer) > 60 02/07/18 06:35 Est GFR (Non-Af Amer) > 60 02/07/18 06:35 Random Glucose 137 mg/dL (65-105) H 02/07/18 06:35 Calcium 8.9 mg/dl (8.6-10.4) 02/07/18 06:35 Total Bilirubin 0.7 mg/dL (0.2-1.3) 02/03/18 18:27 AST 88 U/L (14-36) H D 02/03/18 18:27 ALT 45 U/L (9-52) 02/03/18 18:27 Alkaline Phosphatase 82 U/L (38-126) 02/03/18 18:27 Lactate Dehydrogenase 1000 U/L (313-618) H 02/03/18 18:27 Troponin I < 0.0120 ng/mL (0.00-0.120) 02/04/18 17:21 Total Protein 7.4 g/dL (6.3-8.3) 02/03/18 18:27 Albumin 4.0 g/dL (3.5-5.0) 02/03/18 18:27 Globulin 3.4 gm/dL (2.2-3.9) 02/03/18 18:27 Albumin/Globulin Ratio 1.2 (1.0-2.1) 02/03/18 18:27 Arterial Blood Potassium 3.5 mmol/L (3.6-5.2) L 02/03/18 18:25 Urine Color Yellow (YELLOW) 02/03/18 18:00 Urine Clarity Hazy (Clear) 02/03/18 18:00 Urine pH 5.0 (5.0-8.0) 02/03/18 18:00 Ur Specific [place] 1.016 (1.003-1.030) 02/03/18 18:00 Urine Protein Negative mg/dL (NEGATIVE) 02/03/18 18:00 Urine Glucose (UA) Normal mg/dL (Normal) 02/03/18 18:00 Urine Ketones Trace mg/dL (NEGATIVE) 02/03/18 18:00 Urine Blood Negative (NEGATIVE) 02/03/18 18:00 Urine Nitrate Negative (NEGATIVE) 02/03/18 18:00 Urine Bilirubin Negative (NEGATIVE) 02/03/18 18:00 Urine Urobilinogen Normal mg/dL (0.2-1.0) 02/03/18 18:00 Ur Leukocyte Esterase Trace Gio/uL (Negative) 02/03/18 18:00 Urine WBC (Auto) 7 /hpf (0-5) H 02/03/18 18:00 Urine RBC (Auto) 1 /hpf (0-3) 02/03/18 18:00 Ur Squamous Epith Cells 10 /hpf (0-5) H 02/03/18 18:00 Absolute Lymphs (Flow) 1079 Cells/mcL (850-3900) 02/05/18 06:24 % CD4 Cells 29 Percent (30-61) L 02/05/18 06:24 Absolute CD4 Count 312 Cells/mcL (490-1740) L 02/05/18 06:24 T-Help/Suppress Ratio 0.78 Ratio (0.86-5.00) L 02/05/18 06:24 % CD8 Cells 37 Percent (12-42) 02/05/18 06:24 Absolute CD8 Count 402 Cells/mcL (180-1170) 02/05/18 06:24 Hepatitis A IgM Ab Negative (NEGATIVE) 02/05/18 06:24 Hep Bs Antigen Negative (NEGATIVE) 02/05/18 06:24 Hep B Core IgM Ab Negative (NEGATIVE) 02/05/18 06:24 Hepatitis C Antibody Negative (NEGATIVE) 02/05/18 06:24 HIV-1 RNA copies/mL <20 not detected copies/mL (Not Detected) 02/04/18 19:58 HIV-1 RNA logcopies/mL <1.30 not detected (Not Detected) 02/04/18 19:58 HIV-1 Genotyping 02/04/18 19:58 Influenza Typ A,B (EIA) Negative for flu a/b (NEGATIVE) 02/03/18 18:27 Discharge Exam - Head Exam Head Exam: NORMOCEPHALIC Discharge Plan - Discharge Medications Prescriptions: predniSONE [Prednisone] 10 mg PO DAILY #20 tab Albuterol Sulfate [Proventil Hfa] 0.09 mg IH QID PRN #1 ml PRN Reason: Wheezing Quetiapine Fumarate [Seroquel] 100 mg PO HS #30 tablet Tiotropium [Spiriva] 18 mcg INH RQ24 30 Days cap Dolutegravir Sodium [Tivicay] 50 mg PO Q24H #30 tab Emtricitabine/Tenofovir (Tdf) [Truvada 200 mg-300 mg Tablet] 1 each PO DAILY #30 tablet - Follow Up Plan Condition: FAIR Disposition: HOME/ ROUTINE Instructions: Pneumonia, Adult (DC), Exacerbation of COPD, Albuterol, Emtricitabine and Tenofovir Disoproxil Fumarate, Prednisone, Quetiapine Additional Instructions: follow up with PMD in 1 week follow up with DR Yoo in the office in 1-2 weeks Referrals: Calvin Yoo MD [Staff Provider] - Fabien Arthur MD [Staff Provider] - Avinash Tolentino MD [Staff Provider] -
--- NOTE | 2018-02-10 04:11 | DS ---
DISCHARGE DIAGNOSES: 1. Right lower lobe pneumonia. 2. Chronic obstructive pulmonary disease. 3. Acquired immunodeficiency syndrome. 4. Substance abuse. HISTORY OF PRESENT ILLNESS: This is a 57-year-old female, well-known to me, with history of AIDS, on HAART therapy, noncompliant; COPD, chronic, heavy smoker; and the patient also has history of polysubstance abuse. She is on methadone. She is compliant with her diet, medication, and followup. She came in because of cough, congestion, fever, chills, shortness of breath, and found to have pneumonia. The patient was admitted to the floor. She was started on antibiotics, oxygen, nebulizer treatment, Solu-Medrol. The patient's condition started improving. She is being discharged with outpatient followup. CONDITION UPON DISCHARGE: Stable. After discharge, the patient will receive Pneumovax. PHYSICAL EXAMINATION: VITAL SIGNS: Blood pressure 126/78, pulse 78, respiratory rate 20, temperature 98.2. LUNGS: Decreased air entry. Positive rhonchi. Right basal rales. CARDIOVASCULAR SYSTEM: S1, S2 regular. ABDOMEN: Soft. LABORATORY DATA: Absolute CD4 count 312. profile is negative. HIV PCR RNA less than 20, not detected. Influenza A and B are negative. DISCHARGE DIAGNOSES: Right lower lobe pneumonia. PLAN: The patient is to avoid alcohol. Monitor the patient. Fabien Arthur MD
--- NOTE | 2018-02-10 18:58 | CARD ---
APPROVED REPORT Date of service: 02/09/2018 Protocol: PHARMACOLOGICAL STRESS Test Type: LEXISCAN Test Indications: ABNORMAL EKG Medications: LIST SCAN Medical History: PNEUMONIA,HIV,ABNORMAL EKG Target HR: 164 bpm Resting ECG: NSR W/ EARLY REPOLARIZATION CHANGES Resting Heart Rate: 67 bpm Resting Blood Pressure: 130/80mmHg submaximum (85%): 139 bpm TEST SUMMARY [id number]/80.0. INFUSIONDOSE 100:[id number]/.0. [id number]/70.0. PROCEDURE Pharmacologic stress testing was performed using 0.4mg per 5ml of regadenoson given intravenously over 7-10 seconds. POST EXERCISE Reason for Termination: Protocol Completed Target HR: No Max HR: 72 bpm 62% of Maximum Predicted HR: 164 bpm Exercise duration: 00:30 min:sec, 0 Stage Exercise capacity: 1.0METs Max Blood Pressure: 138/70mmHg Blood Pressure response to exercise: normal resting BP - appropriate response Heart Rate response to exercise: appropriate Chest Pain: No, none Angina index: 0 Arrhythmia: No, none ST Change: Yes, NS ST T CHANGES Deviation: 0 mm INTERPRETATION Stress EKG Conclusion: NEGATIVE LEXISCAN TEST NORMAL BP RESPONSE TO LEXISCAN NUCLEAR STUDIES TO BE READ SEPARATELY EXAM: Myocardial Perfusion STRESS/REST Imaging Protocol The imaging protocol used to acquire images was Stress Tc-99m/rest Tc-99m 1 day Stress Spect myocardial perfusion imaging was performed in supine position 41 minutes following the injection of 13.1 mCi of Tc-99 Myoview. Gated Stress Spect was performed 45 minutes after intravenous 32.5 mCi Tc-99 Myoview injection. The images were gated to evaluate regional wall motion and calculate ventricular ejection fraction.Images were reconstructed using backfilter projection method in short horizontal and verticle long axis. Spect slices were generated. RESTING DATA EDV92.35hyNQ4.60L/min1/3 Pk. Filling Rate1.02EDV/sec LV Time to Pk. Filling Jfqo051.86msec ESV37.00mlMyocardial Jbky734.00gLV Time to Pk. Ejection Lkqi525.55msec Pk. Fill Rate2.78EDV/secAv. Heart Rate64.00bpm EF60.00%Pk. Emptying Rate3.60ESV/sec STRESS DATA EDV81.14gbSV1.20L/min ESV11.00mlMyocardial Rmzw719.00g Pk. Fill Rate2.39EDV/sec EF86.00%Pk. Emptying Rate4.12ESV/sec 1/3 Pk. Filling Rate1.15EDV/secRegional WT score at stress:0.00 LV Time to Pk. Filling Rate:220.47msecRegional WM score at stress:0.00 LV Time to Pk. Ejection Rate:134.22msecSummed WT score at stress:0.00 Av. Heart Rate75.00bpmSummed WM score at stress:0.00 LV Perf. Quant 17 Seg. SSS1.00 17 Seg. SRS0.00 17 Seg. SDS1.00 Stress Defect Extent (% LAD)0.00Rest Defect Extent (% LAD)0.00Rev. Defect Extent (% LAD)0.00 Stress Defect Extent (% LCX)0.00Rest Defect Extent (% LCX)0.00Rev. Defect Extent (% LCX)0.00 Stress Defect Extent (% RCA)0.00Rest Defect Extent (% RCA)0.00Rev. Defect Extent (% RCA)0.00 Stress Defect Extent (% BUNNY)0.00Rest Defect Extent (% BUNNY)0.00Rev. Defect Extent (% BUNNY)0.00 IMPRESSION Normal Myocardial Perfusion exercise stress study Left Ventricle LV Function:Left ventricle systolic function is normal. The Ejection Fraction is >70%. Metabolism/Perfusion There are no defects. There are no perfusion/metabolism defects. Conclusion 1. There is no stress-induced ischemia noted. 2. Left ventricle systolic function is normal. 3. The Ejection Fraction is >70%.
== END 2018-02-09 14:28 | disposition home or self-care (01) | DRG 140 ==
LOC: C.ER 16:31 → UNDOADMIN 19:04 → C.9E 19:04 → C.6T 02-04 00:24
PROVIDERS: ADMIT Internal Medicine; ATTEND Internal Medicine
DX: J44.1 Chronic obstructive pulmonary disease with (acute) exacerbation (principal); J18.9 Pneumonia, unspecified organism; B20 Human immunodeficiency virus [HIV] disease; F11.20 Opioid dependence, uncomplicated; J20.9 Acute bronchitis, unspecified; J44.0 Chronic obstructive pulmonary disease with (acute) lower respiratory infection; F17.210 Nicotine dependence, cigarettes, uncomplicated; Z91.19 Patient's noncompliance with other medical treatment and regimen

== ENCOUNTER 2018-02-18 15:53 | Inpatient (IN) | payer MEDICAID ==
[2018-02-18 15:53] VITALS: BMI 22.8
[2018-02-18] MEDS ORDERED: Sodium Chloride 0.9% 1,000 ML IV ONE (19:13)
--- NOTE | 2018-02-18 19:13 | C.PDOC ---
History Of Present Illness Patient presents to the ER with a complaint of not feeling well, fever, and cough for the past 6 days. Patient is currently speaking in complete sentences. Denies SOB, nausea, or vomiting. Time Seen by Provider: 02/18/18 19:13 Chief Complaint (Nursing): Fever History Per: Patient History/Exam Limitations: no limitations Onset/Duration Of Symptoms: Days (6) Current Symptoms Are (Timing): Worse Location Of Pain: None Sick Contacts (Context): None Associated Symptoms: Fever, Chills, Cough, Other (Not feeling well). denies: Nausea, Vomiting Ear Symptoms: Bilateral: None Severity: Moderate Pain Scale Rating Of: 5 Recent travel outside of the [place]: No Additional History Per: Family Past Medical History Reviewed: Historical Data, Nursing Documentation, Vital Signs Vital Signs: Last Vital Signs Temp 99.4 F 02/18/18 19:04 Pulse 88 02/18/18 19:04 Resp 17 02/18/18 19:06 BP 112/72 02/18/18 19:04 Pulse Ox 95 02/18/18 19:06 - Medical History PMH: Asthma, COPD, Depression, HIV Denies: Chronic Kidney Disease Family History: States: No Known Family Hx - Social History Hx Alcohol Use: Yes Hx Substance Use: Yes - Immunization History Hx Tetanus Toxoid Vaccination: No Hx Influenza Vaccination: No Hx Pneumococcal Vaccination: No Review Of Systems Constitutional: Positive for: Fever, Chills, Other (Not feeling well) Eyes: Negative for: Vision Change ENT: Negative for: Throat Pain Cardiovascular: Negative for: Chest Pain, Palpitations Respiratory: Positive for: Cough, Shortness of Breath Gastrointestinal: Negative for: Nausea, Vomiting Genitourinary: Negative for: Dysuria Musculoskeletal: Negative for: Back Pain Skin: Negative for: Rash Neurological: Negative for: Weakness, Numbness Psych: Negative for: Anxiety Physical Exam - Physical Exam Appears: Non-toxic Skin: Warm, Dry Head: Normacephalic Eye(s): bilateral: Normal Inspection Oral Mucosa: Dry Neck: Trachea Midline, Supple Chest: Symmetrical, No Tenderness Cardiovascular: Rhythm Regular Respiratory: Decreased Breath Sounds, No Rales, Rhonchi (Diffuse), No Wheezing Gastrointestinal/Abdominal: Soft, No Tenderness Back: No CVA Tenderness Extremity: Normal ROM Extremity: Bilateral: Atraumatic Neurological/Psych: Oriented x3 Gait: Steady ED Course And Treatment - Laboratory Results Result Diagrams: 02/18/18 19:24 02/18/18 19:24 O2 Sat by Pulse Oximetry: 95 (Room air) Pulse Ox Interpretation: Normal Progress Note: Blood work, urinalysis, CXR, and flu swab ordered. Duoneb, IV fluids, zosyn, and tylenol administered. Critical Care Time - Critical Care Note Total Time (in mins): 30 Documented critical care: time excludes all time spent performing seperately billable procedures. Disposition Discussed With Dr.: Fabien Arthur Comment: accepted the pt on his service and tookover the care at 10;12 PM Doctor Will See Patient In The: Hospital Counseled Patient/Family Regarding: Studies Performed, Diagnosis - Disposition Disposition: HOSPITALIZED Disposition Time: 19:13 Condition: GUARDED Forms: [facility] (German) - POA Present On Arrival: Poor Glycemic Control - Clinical Impression Clinical Impression: Fever, Pneumonia - Scribe Statement The provider has reviewed the documentation as recorded by the Scribe Avinash Holman All medical record entries made by the Scribe were at my direction and personally dictated by me. I have reviewed the chart and agree that the record accurately reflects my personal performance of the history, physical exam, medical decision making, and the department course for this patient. I have also personally directed, reviewed, and agree with the discharge instructions and disposition. Decision To Admit - Pt Status Changed To: Hospital Disposition Of: Inpatient - Admit Certification Admit to Inpatient:: After my assessment, the patient will require hospitalization for at least two midnights. This is because of the severity of symptoms shown, intensity of services needed, and/or the medical risk in this patient being treated as an outpatient. - InPatient: Physician Admission Certification:: After my assessment, the patient will require hospitalization for at least two midnights. This is because of the severity of symptoms shown, intensity of services needed, and/or the medical risk in this patient being treated as an outpatient. - . Bed Request Type: Regular Admitting Physician: Fabien Arthur Patient Diagnosis: Fever, Pneumonia
[2018-02-18] MEDS ORDERED: Sodium Chloride 0.9% 1,000 ML ONE (19:28)
[2018-02-18 19:32] LABS: BASO # 0.1 K/uL (0.0-0.2); BASO % 0.5 % (0.0-2.0); EOS % 0.1 % (0.0-4.0); HEMOGLOBIN 10.9 g/dL (11.0-16.0); LYMPH # 2.5 K/uL (1.0-4.3); LYMPH % 14.8 % (20.0-40.0); MEAN CELL VOLUME 94.9 fL (81.0-99.0); MEAN CORPUSCULAR HEMOGLOBIN 31.2 pg (27.0-31.0); MEAN CORPUSCULAR HGB CONC 32.9 g/dL (33.0-37.0); MEAN PLATELET VOLUME 7.8 fL (7.2-11.7); MONO # 0.9 K/uL (0.0-0.8); MONO % 5.4 % (0.0-10.0); NEUT # 13.1 K/uL (1.8-7.0); NEUT % 79.2 % (50.0-75.0); NRBC % 0.1 % (0.0-2.0); RBC 3.5 Mil/uL (3.80-5.20); WHITE BLOOD COUNT 16.6 K/uL (4.8-10.8)
[2018-02-18] MEDS: Albuterol-Ipratrop 3 mg / 0.5 (3 ml) UD IH SCH ×3 (19:35→20:00)
[2018-02-18] MEDS ORDERED: Piperacillin/Tazobact 3.375 gm 100 ML IVPB STA (19:40)
[2018-02-18 19:46] LABS: BLOOD UREA NITROGEN 11 mg/dL (7-17); CALCIUM 8.5 mg/dl (8.6-10.4); GFR NON-AFRICAN AMERICAN > 60
[2018-02-18] MEDS ORDERED: Piperacillin/Tazobact 3.375 gm 100 ML IVPB ONE (19:57)
[2018-02-18 20:02] LABS: VENOUS BLOOD GAS BASE EXCESS -1.3 mmol/L (0.0-2.0); VENOUS BLOOD GAS PCO2 40 mmHg (40-60); VENOUS BLOOD GAS PO2 45 mm/Hg (30-55); VENOUS BLOOD PH 7.38 (7.32-7.43)
[2018-02-18 20:03] LABS: SQUAMOUS EPITHIAL 11 /hpf (0-5); URINE BILIRUBIN NEGATIVE (NEGATIVE); URINE BLOOD NEGATIVE (NEGATIVE); URINE CLARITY Clear (Clear); URINE COLOR Yellow (YELLOW); URINE GLUCOSE (UA) NORMAL (Normal); URINE LEUKOCYTE ESTERASE NEG Leu/uL (Negative); URINE PROTEIN 1+ mg/dL (NEGATIVE)
[2018-02-18] MEDS ORDERED: Tmp-Smz 800 mg-160 mg DS Tab ONE (23:11)
[2018-02-18] MEDS: Tmp-Smz 800 mg-160 mg DS Tab PO SCH (23:19)
[2018-02-18] MEDS: guaiFENesin 600 mg ER Tab PO SCH (23:19)
[2018-02-19] MEDS: Piperacill/Tazo 3.375gm in Dex 3.375 GM/50 ML BAG IVPB SCH ×4 (01:00→20:30)
[2018-02-19] MEDS: Albuterol-Ipratrop 3 mg / 0.5 (3 ml) UD INH SCH ×4 (01:55→21:09)
[2018-02-19] MEDS ORDERED: Fluticasone-Vilanterol 100/25mcg Diskus INH SCH (08:00)
[2018-02-19] MEDS: Tiotropium 18 mcg Cap For Inhalation INH SCH (08:18)
--- NOTE | 2018-02-19 08:59 | RAD ---
Date of service: 02/18/2018 HISTORY: SOB COMPARISON: 02/03/2018 chest x-ray and CT chest 02/05/2018 noted TECHNIQUE: Chest PA and lateral FINDINGS: LUNGS: Partial clearing of the prior area of ill-defined patchy opacity at the lateral right lung base. Some residual nodular opacity projects over the inferior right 8th lateral rib. Bilateral hyperinflation/emphysematous changes compatible with background COPD is renoted. The overall interstitial and bronchovascular markings appear prominent slightly increased since prior exams. Trace linear subsegmental discoid like atelectatic changes subsegmental minimal consolidation infiltrate in the right middle lobe now present. PLEURA: Prior right pleural effusion appears cleared and/or much smaller. No pneumothorax apparent. CARDIOVASCULAR: No aortic atherosclerotic calcification present. Normal cardiac size. No pulmonary vascular congestion. OSSEOUS STRUCTURES: No significant abnormalities. VISUALIZED UPPER ABDOMEN: Normal. OTHER FINDINGS: None. IMPRESSION: Most of the more lateral and inferior right basal vague infiltrative opacity has largely cleared. Along the mid to lower lung zone lateral aspect residual nodular opacity persists. No clear recent CT correlate appreciated. Continued follow-up to complete resolution here advised. Interval subsegmental atelectasis/consolidative infiltrate right middle lobe. Follow-up here also advised. Interval decrease/improvement the size of the prior right pleural effusion. Background COPD/emphysema. Currently interstitial lung markings appear bilaterally and diffusely increased-a concomitant viral pneumonitis or other interstitial lung process superimposed on background COPD needs to be considered. Continued follow-up recommended.
[2018-02-19] MEDS: Methadone 40 mg Tab PO SCH (09:45)
[2018-02-19] MEDS: guaiFENesin 600 mg ER Tab PO SCH (09:47)
[2018-02-19] MEDS: Tmp-Smz 800 mg-160 mg DS Tab PO SCH ×2 (09:47→22:03)
[2018-02-19] MEDS: Enoxaparin 40 mg Syringe SC SCH (09:48)
[2018-02-19] MEDS: Emtricitabine-Tenofovir 200 mg-300 mg Tab PO SCH (09:53)
[2018-02-19] MEDS ORDERED: Enoxaparin 30 mg Syringe SC SCH (10:00)
--- NOTE | 2018-02-19 12:10 | CT ---
Date of service: 02/18/2018 PROCEDURE: CT Chest without contrast HISTORY: Follow cough COMPARISON: Comparison made with prior CT scan of the chest dated 02/05/2018. TECHNIQUE: Contiguous axial images were obtained through the chest without intravenous contrast enhancement. Sagittal and coronal reconstructions were performed. Radiation dose: Total exam DLP = 203.35 mGy-cm. This CT exam was performed using one or more of the following dose reduction techniques: Automated exposure control, adjustment of the mA and/or kV according to patient size, and/or use of iterative reconstruction technique. FINDINGS: LUNGS: Redemonstrated are centrilobular emphysematous changes upper lobe predominance. Small blebs also noted both lung apices.. There are numerous areas of ground-glass opacity seen scattered about the upper lower lobes many of which contain areas of bronchiectasis. These changes have progressed when compared with the prior exam. Interval development of linear atelectasis in the right middle lobe bordering the fissure. In addition,, there are a few small elliptical shaped more confluent opacities some of which are pleural based middle lobe and left lower lobe regions.. MEDIASTINUM: The heart is within range of normal. No significant pericardial effusion. Ascending thoracic aorta measures approximate 3.16 cm and descending thoracic aorta measures approximately 2.3 cm. No significant aortic atherosclerotic calcification. Pulmonary trunk measures approximately 2.7 cm. No vascular congestion. No lymphadenopathy. Redemonstrated are relatively small mediastinal lymph nodes the largest right paratracheal noted measuring approximately 10.5 mm. Another lymph node in the left AP window region just above the left hilum measures approximately approximately 13 mm. Evaluation for hilar adenopathy is limited due to the lack of circulating intravenous contrast material. PLEURA: No evidence of pneumothorax. No significant pericardial effusion. BONES: No acute fractures. Minimal multilevel degenerative spondylosis. UPPER ABDOMEN: Redemonstrated is an approximately 16 mm elliptical/rounded cystic focus within the posterior superior aspect right lobe liver. There is a small hiatal hernia. OTHER FINDINGS: None. IMPRESSION: Redemonstrated are centrilobular emphysematous changes upper lobe predominance. Small blebs also noted both lung apices.. There are numerous areas of ground-glass opacity seen scattered about the upper lower lobes many of which contain areas of bronchiectasis. These changes have progressed when compared with the prior exam. Interval development of linear atelectasis in the right middle lobe bordering the fissure. In addition,, there are a few small elliptical shaped more confluent opacities some of which are pleural based middle lobe and left lower lobe regions..
--- NOTE | 2018-02-19 17:48 | CP.PCM.CON ---
History of Present Illness - History of Present Illness History of Present Illness: Patient is a 57 year old female with a PMHx of asthma, AIDS (on HAART therapy, noncompliant), COPD, chronic heavy smoker, depression, and polysubstance abuse. She is on methadone. Pulmonolgy was consulted for pneumonia . She presented to the ER on 02/18/18 with complaints of not feeling well, fever (102F in ED) and cough for the past 6 days. She was recently admitted (02/03/18- 02/09/18) for pneumonia. She reports SOB and cough, fever, chills. On admission, her CXR revealed interval subsegmental atelectasis/consolidative infiltrate right middle love and improvement in the size of the right pleural effusion. PMHx: asthma, AIDS (on HAART therapy, noncompliant), COPD, chronic heavy smoker, depression, and polysubstance abuse. PSHx: Denies Allergies: Denies, NKDA FHx: Denies Meds: Duoneb 3 mg, Tivicay 50 mg, Truvada 200mg-300mg, Lovenox 40 mg, Breo Ellipta 1 puff, Mucinex 600 mg, Methadone 40 mg, Zosyn 3.375g, Seroquel 100 mg, Spiriva 18 mcg, Bactrim Social: 3 cigarettes/day for 1/2 ppd for +20 yrs; occasional alcohol use; history of percocet abuse, recently switched to 70mg methadone in methadone clinic CXR (02/18/18): Background COPD/emphysema. Currently, interstitial lung marking appear bilaterally and diffusely increased concomitant viral pneumonitis or other interstitial lung process superimposed on background COPD needs to be considered. Past Patient History - Infectious Disease Hx of Infectious Diseases: None - Past Medical History & Family History Past Medical History?: Yes - Past Social History Smoking Status: Former Smoker - CARDIAC Hx Cardiac Disorders: No - PULMONARY Hx Respiratory Disorders: Yes Hx Asthma: Yes Hx Chronic Obstructive Pulmonary Disease (COPD): Yes - NEUROLOGICAL Other/Comment: "Hole in the Back Of Left Eye. Left Eye impaired. 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 - RENAL Hx Chronic Kidney Disease: No - ENDOCRINE/METABOLIC Hx Endocrine Disorders: No - HEMATOLOGICAL/ONCOLOGICAL Hx Blood Disorders: Yes Hx Human Immunodeficiency Virus (HIV): Yes - INTEGUMENTARY Hx Dermatological Problems: No - MUSCULOSKELETAL/RHEUMATOLOGICAL Hx Musculoskeletal Disorders: No Hx Falls: No - GASTROINTESTINAL Hx Gastrointestinal Disorders: No - GENITOURINARY/GYNECOLOGICAL Hx Genitourinary Disorders: No - PSYCHIATRIC Hx Psychophysiologic Disorder: Yes Hx Depression: Yes Hx Substance Use: Yes (heroin) - SURGICAL HISTORY Hx Surgeries: No - ANESTHESIA Hx Anesthesia: No Hx Anesthesia Reactions: No Meds Allergies/Adverse Reactions: Allergies Allergy/AdvReac Type Severity Reaction Status Date / Time No Known Allergies Allergy Verified 02/18/18 16:43 - Medications Medications: Current Medications Albuterol/Ipratropium (Duoneb 3 Mg/0.5 Mg (3 Ml) Ud) 3 ml INH RQ6 ELIF Last Admin: 02/19/18 13:36 Dose: 3 ml Dolutegravir Sodium (Tivicay) 50 mg PO Q24H ELIF; Protocol Last Admin: 02/18/18 23:19 Dose: 50 mg Emtricitabine/Tenofovir (Truvada 200 Mg-300 Mg) 1 tab PO DAILY [facility]; Protocol Last Admin: 02/19/18 09:53 Dose: 1 tab Enoxaparin Sodium (Lovenox) 40 mg SC DAILY [facility] Last Admin: 02/19/18 09:48 Dose: 40 mg Fluticasone/Vilanterol (Breo Ellipta 100-25 Mcg Inh) 1 puff INH RQ24 ELIF Guaifenesin/Codeine Phosphate (Guaifenesin/Codeine) 5 ml PO QID ELIF Piperacillin Sod/Tazobactam Sod (Zosyn 3.375 Gm Iv Premix) 3.375 gm in 50 mls @ 100 mls/hr IVPB Q6H ELIF; Protocol Last Admin: 02/19/18 13:26 Dose: 100 mls/hr Influenza Virus Vaccine (Fluzone Quad [id number]) 60 mcg IM .ONCE ONE Stop: 02/20/18 10:01 Methadone HCl (Methadose) 40 mg PO DAILY [facility] Last Admin: 02/19/18 09:45 Dose: 40 mg Methadone HCl (Methadone) 30 mg PO DAILY [facility] Last Admin: 02/19/18 09:45 Dose: 30 mg Pneumococcal Polyvalent Vaccine (Pneumovax 23 Vaccine) 0.5 ml IM .ONCE ONE Stop: 02/20/18 10:01 Quetiapine Fumarate (Seroquel) 100 mg PO HS [facility] Last Admin: 02/18/18 23:19 Dose: 100 mg Tiotropium [place] (Spiriva) 18 mcg INH RQ24 [facility]IF Last Admin: 02/19/18 08:18 Dose: Not Given Trimethoprim/Sulfamethoxazole (Bactrim Ds Tab) 1 tab PO Q12H [facility]; Protocol Last Admin: 02/19/18 09:47 Dose: 1 tab Physical Exam - Head Exam Head Exam: ATRAUMATIC, NORMOCEPHALIC - ENT Exam ENT Exam: Mucous Membranes Moist - Respiratory Exam Respiratory Exam: Decreased Breath Sounds - Cardiovascular Exam Cardiovascular Exam: REGULAR RHYTHM - GI/Abdominal Exam GI & Abdominal Exam: Normal Bowel Sounds, Soft Results - Vital Signs Recent Vital Signs: Last Vital Signs Temp 99.3 F 02/19/18 07:43 Pulse 82 02/19/18 07:43 Resp 20 02/19/18 07:43 BP 121/79 02/19/18 07:43 Pulse Ox 97 02/19/18 07:43 - Labs Result Diagrams: 02/18/18 19:24 02/18/18 19:24 Labs: Laboratory Results - last 24 hr 02/18/18 02/18/18 02/18/18 19:24 19:24 19:46 WBC 16.6 H RBC 3.50 L Hgb 10.9 L Hct 33.2 L MCV 94.9 MCH 31.2 H MCHC 32.9 L RDW 15.0 H Plt Count 249 MPV 7.8 Neut % (Auto) 79.2 H Lymph % (Auto) 14.8 L Reynolds % (Auto) 5.4 Eos % (Auto) 0.1 Baso % (Auto) 0.5 Neut # (Auto) 13.1 H Lymph # (Auto) 2.5 Reynolds # (Auto) 0.9 H Eos # (Auto) 0.0 Baso # (Auto) 0.1 pO2 VBG pH VBG pCO2 VBG HCO3 VBG Total CO2 VBG O2 Sat (Calc) VBG Base Excess VBG Potassium Glucose Lactate Sodium 138 Potassium 3.8 Chloride 104 Carbon Dioxide 22 Anion Gap 16 BUN 11 Creatinine 0.9 Est GFR ( Amer) > 60 Est GFR (Non-Af Amer) > 60 Random Glucose 136 H Calcium 8.5 L Venous Blood Potassium Urine Color Urine Clarity Urine pH Ur Specific [place] Urine Protein Urine Glucose (UA) Urine Ketones Urine Blood Urine Nitrate Urine Bilirubin Urine Urobilinogen Ur Leukocyte Esterase Urine WBC (Auto) Urine RBC (Auto) Ur Squamous Epith Cells Influenza Typ A,B (EIA) Negative for flu a/b 02/18/18 02/18/18 19:46 19:55 WBC RBC Hgb Hct MCV MCH MCHC RDW Plt Count MPV Neut % (Auto) Lymph % (Auto) Reynolds % (Auto) Eos % (Auto) Baso % (Auto) Neut # (Auto) Lymph # (Auto) Reynolds # (Auto) Eos # (Auto) Baso # (Auto) pO2 45 VBG pH 7.38 VBG pCO2 40 VBG HCO3 23.4 VBG Total CO2 24.9 VBG O2 Sat (Calc) 79.6 H VBG Base Excess -1.3 L VBG Potassium 3.5 L Glucose 93 Lactate 1.9 Sodium 142.0 Potassium Chloride 109.0 H Carbon Dioxide Anion Gap BUN Creatinine Est GFR ( Amer) Est GFR (Non-Af Amer) Random Glucose Calcium Venous Blood Potassium 3.5 L Urine Color Yellow Urine Clarity Clear Urine pH 6.0 Ur Specific [place] 1.016 Urine Protein 1+ H Urine Glucose (UA) Normal Urine Ketones Negative Urine Blood Negative Urine Nitrate Negative Urine Bilirubin Negative Urine Urobilinogen 2.0 H Ur Leukocyte Esterase Neg Urine WBC (Auto) 2 Urine RBC (Auto) 1 Ur Squamous Epith Cells 11 H Influenza Typ A,B (EIA) Assessment & Plan (1) Bronchiectasis Status: Acute (2) Pneumonia Status: Acute (3) HIV (human immunodeficiency virus infection) Status: Acute
[2018-02-19] MEDS: guaiFENesin-Codeine 100-10mg/5ml Syrup (10ml) UD PO SCH ×2 (18:18→22:04)
[2018-02-19] MEDS: Clindamycin 300 MG in Sodium Chloride 0.9% 50 ML IVPB SCH (19:39)
--- NOTE | 2018-02-20 00:52 | CP.PCM.HP ---
Past Patient History - Infectious Disease Hx of Infectious Diseases: None - Past Medical History & Family History Past Medical History?: Yes - Past Social History Smoking Status: Former Smoker - CARDIAC Hx Cardiac Disorders: No - PULMONARY Hx Respiratory Disorders: Yes Hx Asthma: Yes Hx Chronic Obstructive Pulmonary Disease (COPD): Yes - NEUROLOGICAL Other/Comment: "Hole in the Back Of Left Eye. Left Eye impaired. 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 - RENAL Hx Chronic Kidney Disease: No - ENDOCRINE/METABOLIC Hx Endocrine Disorders: No - HEMATOLOGICAL/ONCOLOGICAL Hx Blood Disorders: Yes Hx Human Immunodeficiency Virus (HIV): Yes - INTEGUMENTARY Hx Dermatological Problems: No - MUSCULOSKELETAL/RHEUMATOLOGICAL Hx Musculoskeletal Disorders: No Hx Falls: No - GASTROINTESTINAL Hx Gastrointestinal Disorders: No - GENITOURINARY/GYNECOLOGICAL Hx Genitourinary Disorders: No - PSYCHIATRIC Hx Psychophysiologic Disorder: Yes Hx Depression: Yes Hx Substance Use: Yes (heroin) - SURGICAL HISTORY Hx Surgeries: No - ANESTHESIA Hx Anesthesia: No Hx Anesthesia Reactions: No Meds Allergies/Adverse Reactions: Allergies Allergy/AdvReac Type Severity Reaction Status Date / Time No Known Allergies Allergy Verified 02/18/18 16:43 Results - Vital Signs Recent Vital Signs: Last Vital Signs Temp 99.3 F 02/19/18 07:43 Pulse 82 02/19/18 07:43 Resp 20 02/19/18 07:43 BP 121/79 02/19/18 07:43 Pulse Ox 97 02/19/18 07:43 - Labs Result Diagrams: 02/18/18 19:24 02/18/18 19:24
--- NOTE | 2018-02-20 00:53 | CP.PCM.PN ---
Objective - Vital Signs/Intake and Output Vital Signs (last 24 hours): Temp Pulse Resp BP Pulse Ox 99.3 F 82 20 121/79 97 02/19/18 07:43 02/19/18 07:43 02/19/18 07:43 02/19/18 07:43 02/19/18 07:43 - Medications Medications: Current Medications Albuterol/Ipratropium (Duoneb 3 Mg/0.5 Mg (3 Ml) Ud) 3 ml INH RQ6 ELIF Last Admin: 02/19/18 21:09 Dose: 3 ml Dolutegravir Sodium (Tivicay) 50 mg PO Q24H [facility]; Protocol Last Admin: 02/19/18 22:04 Dose: 50 mg Emtricitabine/Tenofovir (Truvada 200 Mg-300 Mg) 1 tab PO DAILY [facility]; Protocol Last Admin: 02/19/18 09:53 Dose: 1 tab Enoxaparin Sodium (Lovenox) 40 mg SC DAILY [facility] Last Admin: 02/19/18 09:48 Dose: 40 mg Fluticasone/Vilanterol (Breo Ellipta 100-25 Mcg Inh) 1 puff INH RQ24 ELIF Guaifenesin/Codeine Phosphate (Guaifenesin/Codeine) 5 ml PO QID [facility]IF Last Admin: 02/19/18 22:04 Dose: 5 ml Piperacillin Sod/Tazobactam Sod (Zosyn 3.375 Gm Iv Premix) 3.375 gm in 50 mls @ 100 mls/hr IVPB Q6H [facility]; Protocol Last Admin: 02/19/18 20:30 Dose: 100 mls/hr Clindamycin Phosphate 300 mg/ (Sodium Chloride) 52 mls @ 100 mls/hr IVPB Q8H [facility]; Protocol Last Admin: 02/19/18 19:39 Dose: 100 mls/hr Influenza Virus Vaccine (Fluzone Quad [id number]) 60 mcg IM .ONCE ONE Stop: 02/20/18 10:01 Methadone HCl (Methadose) 40 mg PO DAILY [facility] Last Admin: 02/19/18 09:45 Dose: 40 mg Methadone HCl (Methadone) 30 mg PO DAILY [facility] Last Admin: 02/19/18 09:45 Dose: 30 mg Pneumococcal Polyvalent Vaccine (Pneumovax 23 Vaccine) 0.5 ml IM .ONCE ONE Stop: 02/20/18 10:01 Quetiapine Fumarate (Seroquel) 100 mg PO HS [facility]IF Last Admin: 02/19/18 22:04 Dose: 100 mg Tiotropium [place] (Spiriva) 18 mcg INH RQ24 ELIF Last Admin: 02/19/18 08:18 Dose: Not Given Trimethoprim/Sulfamethoxazole (Bactrim Ds Tab) 1 tab PO Q12H [facility]IF; Protocol Last Admin: 02/19/18 22:03 Dose: 1 tab - Labs Labs: 02/18/18 19:24 02/18/18 19:24
[2018-02-20] MEDS: Piperacill/Tazo 3.375gm in Dex 3.375 GM/50 ML BAG IVPB SCH ×4 (01:30→20:16)
[2018-02-20] MEDS: Albuterol-Ipratrop 3 mg / 0.5 (3 ml) UD INH SCH ×4 (01:38→20:19)
[2018-02-20] MEDS: Clindamycin 300 MG in Sodium Chloride 0.9% 50 ML IVPB SCH ×3 (02:10→18:00)
[2018-02-20 07:36] LABS: BASO % 0.3 % (0.0-2.0); EOS % 0.6 % (0.0-4.0); HEMOGLOBIN 9.8 g/dL (11.0-16.0); LYMPH # 1.4 K/uL (1.0-4.3); LYMPH % 17.7 % (20.0-40.0); MEAN CELL VOLUME 94.5 fL (81.0-99.0); MEAN CORPUSCULAR HEMOGLOBIN 32.3 pg (27.0-31.0); MEAN CORPUSCULAR HGB CONC 34.2 g/dL (33.0-37.0); MEAN PLATELET VOLUME 7.7 fL (7.2-11.7); MONO # 0.5 K/uL (0.0-0.8); MONO % 6.7 % (0.0-10.0); NEUT # 6.1 K/uL (1.8-7.0); NEUT % 74.7 % (50.0-75.0); RBC 3.04 Mil/uL (3.80-5.20); RED CELL DISTRIBUTION WIDTH 14.7 % (11.5-14.5)
--- NOTE | 2018-02-20 07:42 | HP ---
CHIEF COMPLAINT: Cough, fever for two days. HISTORY OF PRESENT ILLNESS: This is a 57-year-old female, well know to me with history of prior COPD; acquired immunodeficiency syndrome; polysubstance abuse, on methadone who is compliant with the diet, medication and followup. The patient has history of bronchiectasis and history of multiple hospitalizations because of cough, fever. The patient was discharged recently. She was treated for pneumonia. The patient did well. Subsequently the patient was evaluated by me in the office and she was found to have fever, chills, rigors, cough, congestion, thick yellow sputum production, chill, rigors. She has nausea. No vomiting. She has generalized weakness, tiredness, anorexia, malaise, and fatigue. She denies any abdominal pain, nausea, vomiting, diarrhea. She denies any polyuria, polydipsia, polyphagia. She denies any history of hematuria or pyuria. PAST MEDICAL HISTORY: Bronchiectasis, pneumonia, polysubstance abuse, COPD. SOCIAL HISTORY: She smokes, drinks and she is a substance abuser. FAMILY HISTORY: Noncontributory. CURRENT MEDICATIONS: At home are; prednisone, Spiriva, Seroquel, methadone, Truvada, Tivicay, Symbicort, Proventil. PHYSICAL EXAMINATION: GENERAL: A middle-aged female in moderate distress with fever and chills. VITAL SIGNS: Blood pressure 121/71, pulse 82, respiratory rate 20, and temperature 99.3. SKIN: Chronic changes. No bruises. No purpura. No petechia. HEENT: Atraumatic and normocephalic. Negative pallor. Negative jaundice. Extraocular movements are intact. NECK: Supple. No accessory muscles use for respiration. No JVD. No lymph node. No thyromegaly. CHEST WALL: Bilateral symmetrical expansion. No deformity. LUNGS: Bilateral rales and rhonchi. Decreased air entry. CARDIOVASCULAR SYSTEM: PMI in the fifth intercostal space. S1 and S2 regular. ABDOMEN: Soft, nontender. Bowel sounds are positive. RECTAL: Negative. EXTREMITIES: No clubbing, cyanosis, or edema. CENTRAL NERVOUS SYSTEM: Awake, alert, oriented x3. ASSESSMENT: 1. Rule out pneumonia. 2. Bronchiectasis. 3. Chronic obstructive pulmonary disease. 4. Acquired immunodeficiency syndrome. 5. Polysubstance abuse. PLAN: Detailed orders written. Seen and examined. Fabien Arthur MD
[2018-02-20 07:59] LABS: BLOOD UREA NITROGEN 11 mg/dL (7-17); CALCIUM 8.4 mg/dl (8.6-10.4); GFR NON-AFRICAN AMERICAN 51
[2018-02-20 08:01] LABS: WHITE BLOOD COUNT 8.2 K/uL (4.8-10.8)
[2018-02-20] MEDS: Tiotropium 18 mcg Cap For Inhalation INH SCH (09:22)
[2018-02-20] MEDS ORDERED: Pneumococcal 23-Valent Vaccine IM ONE (10:00)
[2018-02-20] MEDS ORDERED: Influenza Vaccine 60 MCG/0.5 ML SYR (3 yr & up) IM ONE (10:00)
[2018-02-20] MEDS: Tmp-Smz 800 mg-160 mg DS Tab PO SCH ×2 (10:47→21:46)
[2018-02-20] MEDS: Emtricitabine-Tenofovir 200 mg-300 mg Tab PO SCH (10:48)
[2018-02-20] MEDS: Enoxaparin 40 mg Syringe SC SCH (10:48)
[2018-02-20] MEDS: Methadone 40 mg Tab PO SCH (10:48)
[2018-02-20] MEDS: guaiFENesin-Codeine 100-10mg/5ml Syrup (10ml) UD PO SCH ×4 (10:50→21:51)
--- NOTE | 2018-02-20 12:49 | CP.PCM.PN ---
Subjective - Date & Time of Evaluation Date of Evaluation: 02/20/18 Time of Evaluation: 10:55 - Subjective Subjective: Patient seen and examined at bedside, lying down comfortably. Patient will benefit from Pulmonary LifeVest for her bronchiectasis Patient had temperature of 100.3F at 12 AM on 02/20, 99.6F at 1:30 AM. Continue to monitor for fevers Denies SOB, chest pain, fever/chills, headaches Preliminary blood cultures negative, gram stain pending Continue Duoneb Patient on Zosyn and Clindamycin, and Batrim Objective - Vital Signs/Intake and Output Vital Signs (last 24 hours): Temp Pulse Resp BP Pulse Ox 99.6 F 94 H 20 108/68 95 02/20/18 01:30 02/20/18 00:00 02/20/18 00:00 02/20/18 00:00 02/20/18 01:30 Intake and Output: 02/20/18 02/20/18 06:59 18:59 Intake Total 350 Balance 350 - Medications Medications: Current Medications Albuterol/Ipratropium (Duoneb 3 Mg/0.5 Mg (3 Ml) Ud) 3 ml INH RQ6 ELIF Last Admin: 02/20/18 09:22 Dose: 3 ml Dolutegravir Sodium (Tivicay) 50 mg PO Q24H ELIF; Protocol Last Admin: 02/19/18 22:04 Dose: 50 mg Emtricitabine/Tenofovir (Truvada 200 Mg-300 Mg) 1 tab PO DAILY ELIF; Protocol Last Admin: 02/20/18 10:48 Dose: 1 tab Enoxaparin Sodium (Lovenox) 40 mg SC DAILY ELIF Last Admin: 02/20/18 10:48 Dose: 40 mg Fluticasone/Vilanterol (Breo Ellipta 100-25 Mcg Inh) 1 puff INH RQ24 ELIF Guaifenesin/Codeine Phosphate (Guaifenesin/Codeine) 5 ml PO QID ELIF Last Admin: 02/20/18 10:50 Dose: Not Given Piperacillin Sod/Tazobactam Sod (Zosyn 3.375 Gm Iv Premix) 3.375 gm in 50 mls @ 100 mls/hr IVPB Q6H ELIF; Protocol Last Admin: 02/20/18 10:49 Dose: 100 mls/hr Clindamycin Phosphate 300 mg/ (Sodium Chloride) 52 mls @ 100 mls/hr IVPB Q8H ELIF; Protocol Last Admin: 02/20/18 09:41 Dose: 100 mls/hr Methadone HCl (Methadose) 40 mg PO DAILY ELIF Last Admin: 02/20/18 10:48 Dose: 40 mg Methadone HCl (Methadone) 30 mg PO DAILY EL[facility] Last Admin: 02/20/18 10:48 Dose: 30 mg Quetiapine Fumarate (Seroquel) 100 mg PO HS ELIF Last Admin: 02/19/18 22:04 Dose: 100 mg Tiotropium [place] (Spiriva) 18 mcg INH RQ24 ELIF Last Admin: 02/20/18 09:22 Dose: 18 mcg Trimethoprim/Sulfamethoxazole (Bactrim Ds Tab) 1 tab PO Q12H ELIF; Protocol Last Admin: 02/20/18 10:47 Dose: 1 tab - Labs Labs: 02/20/18 07:25 02/20/18 07:25 Assessment and Plan (1) Bronchiectasis Status: Acute (2) Pneumonia Status: Acute (3) HIV (human immunodeficiency virus infection) Status: Acute
[2018-02-21] MEDS: Clindamycin 300 MG in Sodium Chloride 0.9% 50 ML IVPB SCH ×3 (01:28→17:48)
[2018-02-21] MEDS: Piperacill/Tazo 3.375gm in Dex 3.375 GM/50 ML BAG IVPB SCH ×4 (01:28→19:57)
--- NOTE | 2018-02-21 03:58 | PN ---
DATE: 02/20/2018 SUBJECTIVE: Rosa Quevedo continues to have cough, congestion, shortness of breath and wheezing. She is afebrile today, earlier on T-max 100.3. She is tolerating diet. She has generalized weakness. She has hoarseness of voice. Her appetite is fair. PHYSICAL EXAMINATION: VITAL SIGNS: Blood pressure 125/82, pulse 90, respiratory rate 20, temperature 99.4. LUNGS: Bilateral inspiratory and expiratory rales and rhonchi. CARDIOVASCULAR SYSTEM: S1 and S2 are regular. ABDOMEN: Soft. ASSESSMENT: 1. Bronchiectasis, rule out bronchopneumonia. 2. Chronic obstructive pulmonary disease. 3. Acquired immunodeficiency syndrome. 4. Malnutrition. PLAN: Continue current medications. Monitor the patient. Fabien Arthur MD
[2018-02-21] MEDS: Tiotropium 18 mcg Cap For Inhalation INH SCH (08:23)
[2018-02-21] MEDS: Albuterol-Ipratrop 3 mg / 0.5 (3 ml) UD INH SCH ×3 (08:23→22:11)
[2018-02-21] MEDS: Emtricitabine-Tenofovir 200 mg-300 mg Tab PO SCH (10:12)
[2018-02-21] MEDS: Tmp-Smz 800 mg-160 mg DS Tab PO SCH ×2 (10:12→21:42)
[2018-02-21] MEDS: Methadone 40 mg Tab PO SCH (10:13)
[2018-02-21] MEDS: guaiFENesin-Codeine 100-10mg/5ml Syrup (10ml) UD PO SCH ×4 (10:13→21:42)
[2018-02-21] MEDS: Enoxaparin 40 mg Syringe SC SCH (10:13)
--- NOTE | 2018-02-21 15:30 | CP.PCM.PN ---
Subjective - Date & Time of Evaluation Date of Evaluation: 02/21/18 Time of Evaluation: 13:00 - Subjective Subjective: The patient seen and examined Still complaining off cough Wants to go home Patient is afebrile No chest pain Objective - Vital Signs/Intake and Output Vital Signs (last 24 hours): Temp Pulse Resp BP Pulse Ox 99.2 F 77 20 101/65 96 02/21/18 08:00 02/21/18 08:00 02/21/18 08:00 02/21/18 08:00 02/21/18 08:00 Intake and Output: 02/21/18 02/21/18 06:59 18:59 Intake Total 940 440 Balance 940 440 - Medications Medications: Current Medications Albuterol/Ipratropium (Duoneb 3 Mg/0.5 Mg (3 Ml) Ud) 3 ml INH RQ6 ELIF Last Admin: 02/21/18 13:20 Dose: 3 ml Dolutegravir Sodium (Tivicay) 50 mg PO Q24H ELIF; Protocol Last Admin: 02/20/18 21:46 Dose: 50 mg Emtricitabine/Tenofovir (Truvada 200 Mg-300 Mg) 1 tab PO DAILY ELIF; Protocol Last Admin: 02/21/18 10:12 Dose: 1 tab Enoxaparin Sodium (Lovenox) 40 mg SC DAILY ELIF Last Admin: 02/21/18 10:13 Dose: 40 mg Fluticasone/Vilanterol (Breo Ellipta 100-25 Mcg Inh) 1 puff INH RQ24 ELIF Guaifenesin/Codeine Phosphate (Guaifenesin/Codeine) 5 ml PO QID ELIF Last Admin: 02/21/18 13:11 Dose: 5 ml Piperacillin Sod/Tazobactam Sod (Zosyn 3.375 Gm Iv Premix) 3.375 gm in 50 mls @ 100 mls/hr IVPB Q6H ELIF; Protocol Last Admin: 02/21/18 13:54 Dose: 100 mls/hr Clindamycin Phosphate 300 mg/ (Sodium Chloride) 52 mls @ 100 mls/hr IVPB Q8H ELIF; Protocol Last Admin: 02/21/18 10:12 Dose: 100 mls/hr Methadone HCl (Methadose) 40 mg PO DAILY ELIF Last Admin: 02/21/18 10:13 Dose: 40 mg Methadone HCl (Methadone) 30 mg PO DAILY [facility] Last Admin: 02/21/18 10:13 Dose: 30 mg Quetiapine Fumarate (Seroquel) 100 mg PO HS [facility] Last Admin: 02/20/18 21:46 Dose: 100 mg Tiotropium [place] (Spiriva) 18 mcg INH RQ24 ELIF Last Admin: 02/21/18 08:23 Dose: 18 mcg Trimethoprim/Sulfamethoxazole (Bactrim Ds Tab) 1 tab PO Q12H [facility]; Protocol Last Admin: 02/21/18 10:12 Dose: 1 tab - Labs Labs: 02/20/18 07:25 02/20/18 07:25 - Head Exam Head Exam: ATRAUMATIC, NORMOCEPHALIC - ENT Exam ENT Exam: Mucous Membranes Moist - Neck Exam Neck Exam: Normal Inspection - Respiratory Exam Respiratory Exam: Rhonchi, Wheezes - Cardiovascular Exam Cardiovascular Exam: REGULAR RHYTHM Assessment and Plan (1) Bronchiectasis Status: Acute (2) Pneumonia Status: Acute (3) HIV (human immunodeficiency virus infection) Status: Acute
--- NOTE | 2018-02-21 20:11 | CP.PCM.PN ---
Subjective - Subjective Subjective: dictated Objective - Vital Signs/Intake and Output Vital Signs (last 24 hours): Temp Pulse Resp BP Pulse Ox 98 F 93 H 20 109/72 95 02/21/18 16:00 02/21/18 16:00 02/21/18 16:00 02/21/18 16:00 02/21/18 16:00 Intake and Output: 02/21/18 02/22/18 18:59 06:59 Intake Total 440 Balance 440 - Medications Medications: Current Medications Albuterol/Ipratropium (Duoneb 3 Mg/0.5 Mg (3 Ml) Ud) 3 ml INH RQ6 ELIF Last Admin: 02/21/18 13:20 Dose: 3 ml Dolutegravir Sodium (Tivicay) 50 mg PO Q24H ELIF; Protocol Last Admin: 02/20/18 21:46 Dose: 50 mg Emtricitabine/Tenofovir (Truvada 200 Mg-300 Mg) 1 tab PO DAILY ELIF; Protocol Last Admin: 02/21/18 10:12 Dose: 1 tab Enoxaparin Sodium (Lovenox) 40 mg SC DAILY [facility] Last Admin: 02/21/18 10:13 Dose: 40 mg Fluticasone/Vilanterol (Breo Ellipta 100-25 Mcg Inh) 1 puff INH RQ24 ELIF Guaifenesin/Codeine Phosphate (Guaifenesin/Codeine) 5 ml PO QID [facility] Last Admin: 02/21/18 17:50 Dose: 5 ml Piperacillin Sod/Tazobactam Sod (Zosyn 3.375 Gm Iv Premix) 3.375 gm in 50 mls @ 100 mls/hr IVPB Q6H ELIF; Protocol Last Admin: 02/21/18 19:57 Dose: 100 mls/hr Clindamycin Phosphate 300 mg/ (Sodium Chloride) 52 mls @ 100 mls/hr IVPB Q8H ELIF; Protocol Last Admin: 02/21/18 17:48 Dose: 100 mls/hr Methadone HCl (Methadose) 40 mg PO DAILY [facility] Last Admin: 02/21/18 10:13 Dose: 40 mg Methadone HCl (Methadone) 30 mg PO DAILY [facility] Last Admin: 02/21/18 10:13 Dose: 30 mg Quetiapine Fumarate (Seroquel) 100 mg PO HS [facility] Last Admin: 02/20/18 21:46 Dose: 100 mg Tiotropium [place] (Spiriva) 18 mcg INH RQ24 ELIF Last Admin: 02/21/18 08:23 Dose: 18 mcg Trimethoprim/Sulfamethoxazole (Bactrim Ds Tab) 1 tab PO Q12H ELIF; Protocol Last Admin: 02/21/18 10:12 Dose: 1 tab - Labs Labs: 02/20/18 07:25 02/20/18 07:25
--- NOTE | 2018-02-22 00:52 | PN ---
DATE: 02/21/2018 SUBJECTIVE: Sae has less cough. No fever. No nausea or vomiting. Tolerating diet. PHYSICAL EXAMINATION VITAL SIGNS: Blood pressure 109/72, pulse 93, respiratory rate 20, temperature 98. LUNGS: Decreased air entry. Positive rhonchi. CARDIOVASCULAR SYSTEM: S1 and S2 regular. ABDOMEN: Soft. ASSESSMENT: 1. Pneumonia. 2. Bronchiectasis. 3. Chronic obstructive pulmonary disease. 4. Acquired immunodeficiency syndrome. PLAN: Continue current medications. Monitor the patient. Fabien Arthur MD
[2018-02-22] MEDS: Clindamycin 300 MG in Sodium Chloride 0.9% 50 ML IVPB SCH ×3 (01:20→18:00)
[2018-02-22] MEDS: Piperacill/Tazo 3.375gm in Dex 3.375 GM/50 ML BAG IVPB SCH ×4 (01:23→20:04)
[2018-02-22] MEDS: Albuterol-Ipratrop 3 mg / 0.5 (3 ml) UD INH SCH ×4 (01:40→21:09)
[2018-02-22] MEDS: Tiotropium 18 mcg Cap For Inhalation INH SCH (07:40)
[2018-02-22 08:09] LABS: BASO % 0.4 % (0.0-2.0); EOS % 0.6 % (0.0-4.0); LYMPH # 1.2 K/uL (1.0-4.3); LYMPH % 15.3 % (20.0-40.0); MEAN CELL VOLUME 95.4 fL (81.0-99.0); MEAN CORPUSCULAR HGB CONC 33.6 g/dL (33.0-37.0); MEAN PLATELET VOLUME 7.6 fL (7.2-11.7); MONO # 0.4 K/uL (0.0-0.8); MONO % 5.3 % (0.0-10.0); NEUT # 6.3 K/uL (1.8-7.0); NEUT % 78.4 % (50.0-75.0); RBC 3.44 Mil/uL (3.80-5.20); RED CELL DISTRIBUTION WIDTH 14.8 % (11.5-14.5); WHITE BLOOD COUNT 8.1 K/uL (4.8-10.8)
[2018-02-22 08:24] LABS: ALB/GLOB RATIO 0.8 (1.0-2.1); ALBUMIN 3.4 g/dL (3.5-5.0); CALCIUM 8.9 mg/dl (8.6-10.4)
[2018-02-22] MEDS: Emtricitabine-Tenofovir 200 mg-300 mg Tab PO SCH (09:33)
[2018-02-22] MEDS: Methadone 40 mg Tab PO SCH (09:33)
[2018-02-22] MEDS: guaiFENesin-Codeine 100-10mg/5ml Syrup (10ml) UD PO SCH ×4 (09:34→21:16)
[2018-02-22] MEDS: Enoxaparin 40 mg Syringe SC SCH (09:34)
[2018-02-22] MEDS: Tmp-Smz 800 mg-160 mg DS Tab PO SCH ×2 (09:37→22:00)
[2018-02-22 10:00] VITALS: RESP 20
--- NOTE | 2018-02-22 21:49 | CP.PCM.PN ---
Subjective - Subjective Subjective: dictated Objective - Vital Signs/Intake and Output Vital Signs (last 24 hours): Temp Pulse Resp BP Pulse Ox 98.9 F 78 20 107/73 95 02/22/18 17:05 02/22/18 17:05 02/22/18 17:05 02/22/18 17:05 02/22/18 17:05 Intake and Output: 02/22/18 02/23/18 18:59 06:59 Intake Total 780 Balance 780 - Medications Medications: Current Medications Albuterol/Ipratropium (Duoneb 3 Mg/0.5 Mg (3 Ml) Ud) 3 ml INH RQ6 ELIF Last Admin: 02/22/18 21:09 Dose: 3 ml Dolutegravir Sodium (Tivicay) 50 mg PO Q24H ELIF; Protocol Last Admin: 02/21/18 21:41 Dose: 50 mg Emtricitabine/Tenofovir (Truvada 200 Mg-300 Mg) 1 tab PO DAILY ELIF; Protocol Last Admin: 02/22/18 09:33 Dose: 1 tab Enoxaparin Sodium (Lovenox) 40 mg SC DAILY ELIF Last Admin: 02/22/18 09:34 Dose: 40 mg Fluticasone/Vilanterol (Breo Ellipta 100-25 Mcg Inh) 1 puff INH RQ24 ELIF Guaifenesin/Codeine Phosphate (Guaifenesin/Codeine) 5 ml PO QID ELIF Last Admin: 02/22/18 21:16 Dose: 5 ml Piperacillin Sod/Tazobactam Sod (Zosyn 3.375 Gm Iv Premix) 3.375 gm in 50 mls @ 100 mls/hr IVPB Q6H ELIF; Protocol Last Admin: 02/22/18 20:04 Dose: 100 mls/hr Clindamycin Phosphate 300 mg/ (Sodium Chloride) 52 mls @ 100 mls/hr IVPB Q8H ELIF; Protocol Last Admin: 02/22/18 18:00 Dose: 100 mls/hr Methadone HCl (Methadose) 40 mg PO DAILY [facility] Last Admin: 02/22/18 09:33 Dose: 40 mg Methadone HCl (Methadone) 30 mg PO DAILY ELIF Last Admin: 02/22/18 09:35 Dose: 30 mg Quetiapine Fumarate (Seroquel) 100 mg PO HS [facility] Last Admin: 02/22/18 21:16 Dose: 100 mg Tiotropium [place] (Spiriva) 18 mcg INH RQ24 ELIF Last Admin: 02/22/18 07:40 Dose: 18 mcg Trimethoprim/Sulfamethoxazole (Bactrim Ds Tab) 1 tab PO Q12H ELIF; Protocol Last Admin: 02/22/18 09:37 Dose: 1 tab - Labs Labs: 02/22/18 08:04 02/22/18 08:04
[2018-02-23] MEDS: Albuterol-Ipratrop 3 mg / 0.5 (3 ml) UD INH SCH ×2 (01:19→07:28)
[2018-02-23] MEDS: Clindamycin 300 MG in Sodium Chloride 0.9% 50 ML IVPB SCH ×3 (01:33→10:44)
--- NOTE | 2018-02-23 01:45 | PN ---
DATE: 02/22/2018 SUBJECTIVE: Sae is afebrile, less shortness of breath, less cough, less wheezing. PHYSICAL EXAMINATION: VITAL SIGNS: BP 107/73, pulse 78, respiratory rate 20, temperature 98.9. LUNGS: Clear with decreased air entry. CARDIOVASCULAR SYSTEM: S1 and S2 are regular. ABDOMEN: Soft. ASSESSMENT: 1. Pneumonia. 2. Bronchiectasis. 3. Acquired immunodeficiency syndrome. PLAN: Continue antibiotics, HAART therapy. Fabien Arthur MD
[2018-02-23] MEDS: Piperacill/Tazo 3.375gm in Dex 3.375 GM/50 ML BAG IVPB SCH ×2 (02:16→08:42)
[2018-02-23 08:06] VITALS: BP 109/70; PULSE 72; TEMP 98.7; O2SAT 100
[2018-02-23] MEDS: Methadone 40 mg Tab PO SCH (09:54)
[2018-02-23] MEDS: Emtricitabine-Tenofovir 200 mg-300 mg Tab PO SCH (09:55)
[2018-02-23] MEDS: guaiFENesin-Codeine 100-10mg/5ml Syrup (10ml) UD PO SCH (09:55)
[2018-02-23] MEDS: Tmp-Smz 800 mg-160 mg DS Tab PO SCH (09:56)
[2018-02-23] MEDS: Enoxaparin 40 mg Syringe SC SCH (09:56)
[2018-02-23] MEDS: Tiotropium 18 mcg Cap For Inhalation INH SCH (10:00)
--- NOTE | 2018-02-23 15:35 | CP.PCM.PN ---
Subjective - Date & Time of Evaluation Date of Evaluation: 02/23/18 Time of Evaluation: 09:00 - Subjective Subjective: Patient seen and examined at bedside, lying down comfortably. Afebrile and in no acute distress Denies SOB, chest pain, fever/chills, headaches Blood cultures negative after 4 days, gram stain pending Objective - Vital Signs/Intake and Output Vital Signs (last 24 hours): Temp Pulse Resp BP Pulse Ox 98.7 F 72 20 109/70 100 02/23/18 08:05 02/23/18 08:05 02/23/18 08:05 02/23/18 08:05 02/23/18 08:05 Intake and Output: 02/23/18 02/23/18 06:59 18:59 Intake Total 700 940 Balance 700 940 - Labs Labs: 02/22/18 08:04 02/22/18 08:04 - Head Exam Head Exam: ATRAUMATIC, NORMOCEPHALIC - ENT Exam ENT Exam: Mucous Membranes Moist - Neck Exam Neck Exam: Normal Inspection - Respiratory Exam Respiratory Exam: Rales, Rhonchi, Wheezes - Cardiovascular Exam Cardiovascular Exam: REGULAR RHYTHM - GI/Abdominal Exam GI & Abdominal Exam: Soft, Normal Bowel Sounds - Extremities Exam Extremities Exam: Full ROM, Normal Inspection - Neurological Exam Neurological Exam: Alert, Oriented x3 Assessment and Plan (1) Bronchiectasis Assessment & Plan: continue antibiotics Patient has chronic cough for the past 6-8 months with multiple admissions and will benefit from Vest therapy has no skilled caregivers available to do chest PT. Status: Acute (2) Pneumonia Status: Acute (3) HIV (human immunodeficiency virus infection) Status: Acute
--- NOTE | 2018-02-23 17:46 | CP.PCM.PN ---
Subjective - Date & Time of Evaluation Date of Evaluation: 02/23/18 Time of Evaluation: 11:00 Objective - Vital Signs/Intake and Output Vital Signs (last 24 hours): Temp Pulse Resp BP Pulse Ox 98.7 F 72 20 109/70 100 02/23/18 08:05 02/23/18 08:05 02/23/18 08:05 02/23/18 08:05 02/23/18 08:05 Intake and Output: 02/23/18 02/23/18 06:59 18:59 Intake Total 700 940 Balance 700 940 - Labs Labs: 02/22/18 08:04 02/22/18 08:04 Assessment and Plan - Assessment and Plan (Free Text) Assessment: 57 yr old female admitted with pneumonia, seen and examined. Alert and orientedx3, no cough or distress noted. Discussed with DR Arthur, plan to discharge home on levaquin for 5 days. Advised to follow up with Dr Yoo in 1 week. Prescriptions given for all meds.
--- NOTE | 2018-02-23 21:59 | CP.PCM.DIS ---
Provider - Provider Date of Admission: 02/18/18 22:11 Attending physician: Fabien Arthur MD Consults: 02/18/18 22:21 Pulmonology Consult Stat Comment: Consulting Provider: Calvin Yoo Consulting Physician: Calvin Yoo Reason for Consult: pna Hospital Course - Lab Results Lab Results: Micro Results 02/18/18 20:00 Blood Blood Culture - Final NO GROWTH AFTER 5 DAYS 02/18/18 20:00 Blood Gram Stain - Final TEST NOT PERFORMED 02/18/18 18:55 Blood Blood Culture - Final NO GROWTH AFTER 5 DAYS 02/18/18 18:55 Blood Gram Stain - Final TEST NOT PERFORMED Most Recent Lab Values WBC 8.1 K/uL (4.8-10.8) 02/22/18 08:04 RBC 3.44 Mil/uL (3.80-5.20) L 02/22/18 08:04 Hgb 11.0 g/dL (11.0-16.0) 02/22/18 08:04 Hct 32.8 % (34.0-47.0) L 02/22/18 08:04 MCV 95.4 fL (81.0-99.0) 02/22/18 08:04 MCH 32.0 pg (27.0-31.0) H 02/22/18 08:04 MCHC 33.6 g/dL (33.0-37.0) 02/22/18 08:04 RDW 14.8 % (11.5-14.5) H 02/22/18 08:04 Plt Count 278 K/uL (130-400) 02/22/18 08:04 MPV 7.6 fL (7.2-11.7) 02/22/18 08:04 Neut % (Auto) 78.4 % (50.0-75.0) H 02/22/18 08:04 Lymph % (Auto) 15.3 % (20.0-40.0) L 02/22/18 08:04 [place] % (Auto) 5.3 % (0.0-10.0) 02/22/18 08:04 Eos % (Auto) 0.6 % (0.0-4.0) 02/22/18 08:04 Baso % (Auto) 0.4 % (0.0-2.0) 02/22/18 08:04 Neut # (Auto) 6.3 K/uL (1.8-7.0) 02/22/18 08:04 Lymph # (Auto) 1.2 K/uL (1.0-4.3) 02/22/18 08:04 [place] # (Auto) 0.4 K/uL (0.0-0.8) 02/22/18 08:04 Eos # (Auto) 0.0 K/uL (0.0-0.7) 02/22/18 08:04 Baso # (Auto) 0.0 K/uL (0.0-0.2) 02/22/18 08:04 pO2 45 mm/Hg (30-55) 02/18/18 19:55 VBG pH 7.38 (7.32-7.43) 02/18/18 19:55 VBG pCO2 40 mmHg (40-60) 02/18/18 19:55 VBG HCO3 23.4 mmol/L 02/18/18 19:55 VBG Total CO2 24.9 mmol/L (22-28) 02/18/18 19:55 VBG O2 Sat (Calc) 79.6 % (40-65) H 02/18/18 19:55 VBG Base Excess -1.3 mmol/L (0.0-2.0) L 02/18/18 19:55 VBG Potassium 3.5 mmol/L (3.6-5.2) L 02/18/18 19:55 Sodium 142.0 mmol/l (132-148) 02/18/18 19:55 Chloride 109.0 mmol/L (98-107) H 02/18/18 19:55 Glucose 93 mg/dl (65-105) 02/18/18 19:55 Lactate 1.9 mmol/L (0.7-2.1) 02/18/18 19:55 Sodium 137 mmol/L (132-148) 02/22/18 08:04 Potassium 4.4 mmol/L (3.6-5.2) 02/22/18 08:04 Chloride 102 mmol/L (98-107) 02/22/18 08:04 Carbon Dioxide 26 mmol/L (22-30) 02/22/18 08:04 Anion Gap 14 (10-20) 02/22/18 08:04 BUN 13 mg/dL (7-17) 02/22/18 08:04 Creatinine 1.4 mg/dL (0.7-1.2) H 02/22/18 08:04 Est GFR ( Amer) 47 02/22/18 08:04 Est GFR (Non-Af Amer) 39 02/22/18 08:04 Random Glucose 90 mg/dL (65-105) 02/22/18 08:04 Calcium 8.9 mg/dl (8.6-10.4) 02/22/18 08:04 Total Bilirubin 0.4 mg/dL (0.2-1.3) 02/22/18 08:04 AST 50 U/L (14-36) H D 02/22/18 08:04 ALT 48 U/L (9-52) 02/22/18 08:04 Alkaline Phosphatase 106 U/L (38-126) 02/22/18 08:04 Total Protein 7.4 g/dL (6.3-8.3) 02/22/18 08:04 Albumin 3.4 g/dL (3.5-5.0) L 02/22/18 08:04 Globulin 4.0 gm/dL (2.2-3.9) H 02/22/18 08:04 Albumin/Globulin Ratio 0.8 (1.0-2.1) L 02/22/18 08:04 Venous Blood Potassium 3.5 mmol/L (3.6-5.2) L 02/18/18 19:55 Urine Color Yellow (YELLOW) 02/18/18 19:46 Urine Clarity Clear (Clear) 02/18/18 19:46 Urine pH 6.0 (5.0-8.0) 02/18/18 19:46 Ur Specific [place] 1.016 (1.003-1.030) 02/18/18 19:46 Urine Protein 1+ mg/dL (NEGATIVE) H 02/18/18 19:46 Urine Glucose (UA) Normal mg/dL (Normal) 02/18/18 19:46 Urine Ketones Negative mg/dL (NEGATIVE) 02/18/18 19:46 Urine Blood Negative (NEGATIVE) 02/18/18 19:46 Urine Nitrate Negative (NEGATIVE) 11/28/18 19:46 Urine Bilirubin Negative (NEGATIVE) 02/18/18 19:46 Urine Urobilinogen 2.0 mg/dL (0.2-1.0) H 02/18/18 19:46 Ur Leukocyte Esterase Neg Gio/uL (Negative) 02/18/18 19:46 Urine WBC (Auto) 2 /hpf (0-5) 02/18/18 19:46 Urine RBC (Auto) 1 /hpf (0-3) 02/18/18 19:46 Ur Squamous Epith Cells 11 /hpf (0-5) H 02/18/18 19:46 Influenza Typ A,B (EIA) Negative for flu a/b (NEGATIVE) 02/18/18 19:46 Discharge Exam - Head Exam Head Exam: ATRAUMATIC, NORMOCEPHALIC Discharge Plan - Discharge Medications Prescriptions: Sulfamethoxazole/Trimethoprim [Bactrim DS Tab] 1 tab PO Q12H #14 tab QUEtiapine [Seroquel] 100 mg PO HS #30 tab Tiotropium [Spiriva] 18 mcg INH RQ24 30 Days #30 cap Dolutegravir Sodium [Tivicay] 50 mg PO Q24H #30 tab Emtricitabine/Tenofovir [place] [Truvada 200 MG-300 MG] 1 tab PO DAILY #30 tab - Follow Up Plan Condition: GUARDED Disposition: HOME/ ROUTINE Instructions: Pneumonia, Adult (DC), Fever, Adult (DC), Bronchiectasis in Adults, Fever in Adults (GEN) Referrals: Calvin Yoo MD [Staff Provider] - 7 Days (See Dr. Yoo in 1 week) Fabien Arthur MD [Staff Provider] - 7 Days (See PMD in 1 week)
--- NOTE | 2018-02-24 05:26 | DS ---
DISCHARGE DIAGNOSES: 1. Pneumonia. 2. Bronchiectasis. 3. Acquired immunodeficiency syndrome. 4. Dehydration. HISTORY OF PRESENT ILLNESS: This is a 57-year-old -[place] female with a history of COPD, bronchiectasis, acquired immunodeficiency syndrome on HAART therapy, who is noncompliant with diet and medications. She also has a history of opiate dependence on methadone. She came in because of recurrent cough, congestion, fever 102+. The patient was found to have pneumonia. She was admitted to the floor, started on antibiotic. The patient's condition improved. She was discharged on outpatient followup. CONDITION UPON DISCHARGE: Stable. PHYSICAL EXAMINATION: VITAL SIGNS: Blood pressure 109/70, pulse 72, respiratory rate 20, temperature 98.7. LUNGS: Decreased air entry. Positive rhonchi. CARDIOVASCULAR: S1 and S2 regular. ABDOMEN: Soft and nontender. Bowel sounds are positive. ASSESSMENT: 1. Pneumonia. 2. Bronchiectasis. 3. Acquired immunodeficiency syndrome. PLAN: Discharge. Fabien Arthur MD
== END 2018-02-23 12:53 | disposition home or self-care (01) | DRG 714 ==
LOC: C.ER 15:53 → C.9E 22:11 → C.3T 22:46
PROVIDERS: ADMIT Internal Medicine; ATTEND Internal Medicine
DX: J18.9 Pneumonia, unspecified organism (principal); B20 Human immunodeficiency virus [HIV] disease; E86.0 Dehydration; E46 Unspecified protein-calorie malnutrition; J47.0 Bronchiectasis with acute lower respiratory infection; J90 Pleural effusion, not elsewhere classified; J98.11 Atelectasis; F17.200 Nicotine dependence, unspecified, uncomplicated; H54.62 Unqualified visual loss, left eye, normal vision right eye; Z91.11 Patient's noncompliance with dietary regimen; Z91.14 Patient's other noncompliance with medication regimen